=== PATIENT | female | born 1960 | race Caucasian/White ===

== ENCOUNTER 2016-06-27 13:28 | Inpatient (IN) | payer OTHER ==
[~2016-06-27] VITALS: Ht 154.9 cm; Wt 57.4 kg
--- NOTE | 2016-06-27 14:41 | ERA ---
ER Documentation Chief Complaint Date/Time DATE: 06/27/16 TIME: 14:41 Chief Complaint SEND BY PMD DUE LOW HGB, FEELS TIRED HPI The patient is a 55-year-old female, presenting to the ER because of abnormal low hemoglobin from the blood test that she had yesterday at the clinic and feeling tired for the last 3 weeks. He denies syncope, near syncope, neck pain , chest pain, dyspnea, abdominal pain, vomiting, dysuria, diarrhea. He does not smoke Past medical history: Hypertension, diabetes mellitus Past surgical history: None ROS All systems reviewed and are negative except as per history of present illness. Medications Home Meds Reported Medications Metformin Hcl* (Metformin Hcl*) 1,000 Mg Tablet, 1000 MG PO WITH BREAKFAST DINNE , #60 TAB 06/27/16 Simvastatin* (Zocor*) 10 Mg Tablet, 10 MG PO QHS, #30 TAB 06/27/16 Amlodipine Besylate* (Norvasc*) 5 Mg Tablet, 5 MG PO BID, TAB 06/27/16 Metoprolol Succinate* (Toprol XL*) 25 Mg Tab.sr.24h, 25 MG PO DAILY, #30 TAB 06/27/16 Hydrochlorothiazide* (Hydrochlorothiazide*) 25 Mg Tab, 25 MG PO DAILY, #30 TAB 06/27/16 Hydrochlorothiazide* (Hydrochlorothiazide*) 12.5 Mg Tablet, 12.5 MG PO DAILY, # 30 TAB 06/27/16 Allergies Allergies: Coded Allergies: No Known Allergy (Unverified , 06/27/16) PMhx/Soc History of Surgery: No Anesthesia Reaction: No Hx Neurological Disorder: No Hx Respiratory Disorders: No Hx Cardiac Disorders: Yes (HTN) Hx Psychiatric Problems: No Hx Miscellaneous Medical Probl: No Hx Alcohol Use: No Hx Substance Use: No Hx Tobacco Use: No Smoking Status: Unknown if ever smoked Physical Exam Vitals Vital Signs Date Time Temp Pulse Resp B/P Pulse Ox O2 Delivery O2 Flow Rate FiO2 06/27/16 17:00 97.8 86 20 181/80 100 Nasal Cannula 2.0 06/27/16 15:17 Nasal Cannula 2 06/27/16 13:45 98.1 94 18 222/88 99 Physical Exam Const: No acute distress.Pale Head: Atraumatic. Eyes: Normal Conjunctiva. ENT: Normal External Ears, Nose and Mouth. Neck: Full range of motion. No meningismus. Resp: Clear to auscultation bilaterally. Cardio: Regular rate and rhythm, no murmurs. Abd: Soft, non distended, normal bowel sounds, non tender. Skin: No petechiae or rashes. Back: No midline or flank tenderness. Ext: No cyanosis, or edema. Neur: Awake and alert. No focal deficit Psych: Normal Mood and Affect. Result Diagram: 06/27/16 1500 06/27/16 1500 Results 24 hrs Laboratory Tests Test 06/27/16 15:00 White Blood Count 4.610^3/ul Red Blood Count 1.8910^6/ul Hemoglobin 6.1g/dl Hematocrit 18.6% Mean Corpuscular Volume 98.4fl Mean Corpuscular Hemoglobin 32.3pg Mean Corpuscular Hemoglobin Concent 32.8g/dl Red Cell Distribution Width 15.1% Platelet Count 02870^3/UL Mean Platelet Volume 9.5fl Neutrophils % 62.0% Lymphocytes % 24.0% Monocytes % 10.0% Eosinophils % 4.0% Neutrophils # 2.910^3/ul Lymphocytes # 1.110^3/ul Monocytes # 0.510^3/ul Eosinophils # 0.210^3/ul Prothrombin Time 12.6Sec Prothrombin Time Ratio 1.0 INR International Normalized Ratio 0.94 Activated Partial Thromboplast Time 36.4Sec Sodium Level 134mmol/L Potassium Level 4.7mmol/L Chloride Level 109mmol/L Carbon Dioxide Level 16mmol/L Anion Gap 14 Blood Urea Nitrogen 51mg/dl Creatinine 5.04mg/dl Glucose Level 333mg/dl Calcium Level 7.7mg/dl Total Bilirubin 0.0mg/dl Direct Bilirubin 0.00mg/dl Indirect Bilirubin 0.0mg/dl Aspartate Amino Transf (AST/SGOT) 26IU/L Alanine Aminotransferase (ALT/SGPT) 38IU/L Alkaline Phosphatase 159IU/L Total Protein 6.3g/dl Albumin 2.9g/dl Globulin 3.40g/dl Albumin/Globulin Ratio 0.85 Current Medications Medications (Trade) Dose Ordered Sig/Jeannine Route PRN Reason Start Time Stop Time Status Last Admin Dose Admin Labetalol HCl (Labetalol) 20 mg ONCE ONCE IV 06/27/16 18:00 06/27/16 18:01 DC 4/4/17 17:55 Miscellaneous Information 10 mg QHS PO 06/27/16 21:00 UNV Metoprolol Tartrate (Lopressor) 25 mg BID PO 06/27/16 21:00 UNV Amlodipine Besylate (Norvasc) 10 mg DAILY PO 06/27/16 18:00 UNV Hydralazine HCl 10 mg 10 mg Q6H PRN IV sbp>160mmhg 06/27/16 18:00 UNV Sodium Chloride (NS) 1,000 ml @ 80 mls/hr [id number] IV 06/27/16 18:00 UNV Insulin Aspart (Novolog Insulin Pen) NOVOLOG *MODERATE* ALGORITHM WITH MEALS BEDTIME SC 06/27/16 18:00 UNV Miscellaneous Information (* Miscellaneous Pharmacy Order) HYPOGLYCEMIA PROTOCOL w... ONCE ONCE XX 06/27/16 18:00 06/27/16 18:01 UNV Miscellaneous Information (* Miscellaneous Pharmacy Order) Discontinue all previ... ONCE ONCE XX 06/27/16 18:00 06/27/16 18:01 UNV Insulin Glargine (Lantus) 15 unit DAILY@20 SC 06/27/16 20:00 UNV Docusate Sodium (Colace) 100 mg BID PO 06/27/16 21:00 UNV Famotidine (Pepcid) 20 mg BID PO 06/27/16 21:00 UNV Ondansetron HCl (Zofran Inj) 4 mg Q6H PRN IV NAUSEA AND/OR VOMITING 06/27/16 18:30 UNV Acetaminophen (Tylenol Tab) 325 mg Q6H PRN PO PAIN AND OR ELEVATED TEMP 06/27/16 18:30 UNV Procedures/MDM EKG: Read by emergency physician Rate/Rhythm: Normal Sinus Rhythm 93 beats/min QRS, ST, T-waves: No ST elevation, no T inversion Impression: Normal EKG [place] [id number] Radiology Main Line: [phone] DIAGNOSTIC IMAGING REPORT Patient: ROSA ESCOBAR : 10/10/1971 Age: 44 Sex: M MR #: [id number] DOS: 06/27/16 1416 Ordering MD: FRANK PRYOR MD Location: E/R Room/Bed: PROCEDURE: CT Brain without. CLINICAL INDICATION: Syncope TECHNIQUE: A CT of the brain was performed on a multi-slice CT scanner utilizing axial sections from the skull base through the vertex without contrast. Coronal and sagittal reconstructed images were provided. One or more of the following does reduction techniques were used: Automated exposure control; adjustment of the mA and/or kV according to patient size; use of the aorta of reconstruction technique. Images were reviewed on a high-resolution PACS workstation. The exam CTDI = 44.33 mGy. The exam DLP = 720.23 mGy-cm. COMPARISON: None available FINDINGS: The ventricles and sulci are symmetric and normal in size and morphology. There is no evidence of intracranial hemorrhage, mass effect, edema or midline shift. No abnormal intra-axial or extra-axial fluid collections are seen. The fernando/white matter differentiation is well preserved. The osseous structures and visualized sinuses are unremarkable. The mastoid air cells are clear. The surrounding soft tissue scalp and bony calvarium are intact and normal. IMPRESSION: 1. Unremarkable CT brain. RPTAT: KK .Bud Sorto MD, MD Date Time Electronically viewed and signed by .Bud Sorto MD, MD on 2016 15:33 .B/ CC: FRANK PRYOR MD MEDICAL MAKING DECISION: The patient is a 55-year-old female, presenting with acute anemia, acute kidney injury, acute hyperglycemia, acute accelerated hypertension. She was treated with 2 units of packed red blood cell for acute anemia and labetalol 20 mg IV for acute accelerated hypertension with good response. The differential diagnoses considered include but are not limited to gastritis, peptic ulcer disease, esophageal varices, Judy-Mederos tear, carcinoma, polyp, hemorrhoid, fissure, diverticulosis, angiodysplasia. Departure Diagnosis: Primary Impression: Anemia Additional Impressions: Acute kidney injury Acute hyperglycemia Accelerated hypertension Condition: Stable Comments I discussed the findings with the patient. I discussed the patient with the on- call hospitalist Dr. Peraza who was made aware of the lab, the treatment, the patient condition. The patient is admitted to telemetry at 4:45 PM FRANK PRYOR MD Jun 27, 2016 14:41
[2016-06-27] MEDS ORDERED: HYD25 PO (15:00)
[2016-06-27] MEDS ORDERED: HYDR12.58 PO (15:00)
[2016-06-27] MEDS ORDERED: AMLO5TAB4 PO (15:01)
[2016-06-27] MEDS ORDERED: METO25TA7 PO (15:01)
[2016-06-27] MEDS ORDERED: SIMV10TA PO (15:02)
[2016-06-27] MEDS ORDERED: METF1000 PO (15:03)
[2016-06-27 15:20] LABS: ADD SCAN DIFF NO
[2016-06-27 15:22] LABS: ABNORMAL IP MESSAGE 1; HEMATOCRIT 18.6 % (37.0-47.0); MEAN CORPUSCULAR HEMOGLOBIN 32.3 pg (29.0-33.0); MEAN CORPUSCULAR HGB CONC 32.8 g/dl (32.0-37.0); MEAN CORPUSCULAR VOLUME 98.4 fl (82.0-101.0); MEAN PLATELET VOLUME 9.5 fl (7.4-10.4); PLATELET COUNT 326 10^3/UL (140-415); RED BLOOD COUNT 1.89 10^6/ul (4.20-5.40); RED CELL DISTRIBUTION WIDTH 15.1 % (11.5-14.5); WHITE BLOOD COUNT 4.6 10^3/ul (4.8-10.8)
[2016-06-27 15:29] LABS: HEMOGLOBIN 6.1 g/dl (12.0-16.0)
[2016-06-27 15:32] LABS: ALBUMIN 2.9 g/dl (3.3-4.9); POTASSIUM 4.7 mmol/L (3.5-5.1)
[2016-06-27 15:34] LABS: INR 0.94; PROTIME 12.6 Sec (12.2-14.2)
[2016-06-27 15:35] LABS: ALBUMIN/GLOBULIN RATIO 0.85; CALCIUM 7.7 mg/dl (8.4-10.2); CREATININE 5.04 mg/dl (0.44-1.00); TOTAL PROTEIN 6.3 g/dl (6.1-8.1)
[2016-06-27 15:36] LABS: PARTIAL THROMBOPLASTIN TIME 36.4 Sec (25.0-35.0)
[2016-06-27 16:35] LABS: EOSINOPHILS # 0.2 10^3/ul (0.0-0.5); LYMPHOCYTES # 1.1 10^3/ul (0.8-2.9); MONOCYTE # 0.5 10^3/ul (0.3-0.9); NEUTROPHIL # 2.9 10^3/ul (1.6-7.5)
[2016-06-27] MEDS ORDERED: LABETALOL HCL 20MG INJ IV ONE (18:00)
[2016-06-27] MEDS ORDERED: ACETAMINOPHEN 325 MG TAB PO PRN (18:30)
[2016-06-27] MEDS ORDERED: ONDANSETRON 4 MG INJ IV PRN (18:30)
--- NOTE | 2016-06-27 19:05 | RADRPT ---
PROCEDURE: US pelvis complete and transvaginal CLINICAL INDICATION: Severe anemia. Pelvic pain. TECHNIQUE: Hernandez scale and color Doppler imaging of the pelvis was performed. Endovaginal scanning was performed for more detailed evaluation of the endometrium. The images were reviewed on a PACS workstation. COMPARISON: None. FINDINGS: The uterus measures 6.4 x 3.1 x 4.4 centimeters. The right ovary measures 2.8 x 1.4 x 2.3 centimete rs and the left ovary was not seen. The endometrial stripe measures 4 millimeters in thickness and i s unremarkable in appearance. No fibroids are seen. Arterial flow of the right ovary was documented. No definite ovarian cyst or mass. A small amount of free fluid was present in the cul-de-sac. Calc ified periuterine vasculature. IMPRESSION: No definite acute abnormality. Nonvisualization of the left ovary. RPTAT: HLBE Physician Damaso Date Time Electronically viewed and signed by Valencia Hernandez Physician on 06/27/2016 19:05 IVÁN/
[2016-06-27] MEDS ORDERED: DEXTROSE 50% 50 ML SYRINGE IV PRN ×2 (19:30)
[2016-06-27] MEDS ORDERED: GLUCOSE GEL 15 GRAM TUBE BUCCAL PRN (19:30)
[2016-06-27] MEDS ORDERED: GLUCOSE GEL 15 GRAM TUBE PO PRN ×2 (19:30)
[2016-06-27] MEDS ORDERED: GLUCAGON 1 MG INJ IM PRN (19:30)
[2016-06-27] MEDS ORDERED: INSULIN GLARGINE [LANtus] 3 ML PEN SC SCH (20:00)
[2016-06-27] MEDS: INSULIN ASPART [NOVOLOG] 3 ML PEN SC SCH ×2 (20:15→21:00)
[2016-06-27] MEDS: AMLODIPINE 10 MG TAB PO SCH (20:15)
[2016-06-27] MEDS: METOPROLOL 25 MG TAB PO SCH (20:23)
[2016-06-27] MEDS: ATORVASTATIN 10 MG TAB PO SCH (20:23)
[2016-06-27] MEDS: DOCUSATE SODIUM 100 MG CAP PO SCH (20:23)
[2016-06-27 21:00] VITALS: TEMP 98.5
[2016-06-27] MEDS ORDERED: FAMOTIDINE 20 MG TAB PO SCH (21:00)
--- NOTE | 2016-06-27 21:16 | RADRPT ---
PROCEDURE: CT Abdomen and Pelvis without contrast CLINICAL INDICATION: Severe anemia TECHNIQUE: Transaxial images were obtained through the abdomen and pelvis on a multi-slice scanner without the intravenous contrast administration. No oral contrast had previously been given. Sagit marta and coronal re-formations were subsequently reconstructed. One or more of the following dose reduction techniques were used: - Automated exposure control. - Adjustment of the mA and/or kV according to patient size. - Use of iterative reconstruction technique. Radiation dose: CTDIvol = 11.65 mGy; DLP = 640.91 mGy-cm. COMPARISON: No prior studies are available for comparison. FINDINGS: Lung bases: There are moderate bilateral water density gravitating pleural fluid accumulations great er on the right than the left. Subsegmental atelectasis is seen at each lower lobe. The heart is m ildly enlarged and there are is a small pericardial effusion. Liver: The liver is upper normal in size with no focal lesion identified. Gallbladder: The wall is not thickened. No radiopaque stones are identified. Bile ducts: The intra and extrahepatic bile ducts are normal in caliber. Pancreas: Appears normal with no mass or inflammation evident. Spleen: Normal in size with no focal lesion. Adrenals: Normal with no mass identified. Kidneys, ureters and bladder: The kidneys are normal in size and there is no mass, pathological calc ification, or hydronephrosis evident. There is bilateral perinephric stranding. The ureters are norm al in caliber and no ureteroliths are identified. The bladder wall is mildly diffusely thickened. Reproductive organs: The uterus is midline. Peripheral vascular calcification is seen in the uterus . A ring-like calcification is seen within the right cul-de-sac measuring 1.8 x 1.3 x 0.7 cm cm in c ross diameter. Otherwise, no adnexal mass is identified. Stomach and bowel: The stomach is quite distended with food debris. The small bowel gas pattern ref lects an ileus. Substantial stool is seen within the right colon and the right colonic wall appears mildly thickened raising the possibility of colitis. There is no evidence of bowel obstruction. Appendix: A normal vermiform appendix is evident. Peritoneum: There is a trace of free intraperitoneal fluid seen in the cul-de-sac. No free air is i dentified. Aorta: There is atherosclerotic vascular calcification but no abdominal aortic aneurysm is evident. IVC: Unremarkable. Lymph nodes: No pathologically enlarged nodes are identified. Osseous structures: The osseous elements appear intact. Soft tissues: There is considerable stranding within the subcutaneous and deep fat suspicious for a nasarca. IMPRESSION: 1. There is diffusely increased stranding to the subcutaneous and deep fat as well as in the retrope ritoneum compatible with anasarca. 2. Moderate gravitating water density pleural fluid accumulations are evident with subsegmental ate lectasis involving the posterior lower lobes. 3. Mild cardiomegaly with a small pericardial effusion. 4. See the stomach is moderately distended with food debris and abundant stool seen in the right co sharifa and the bowel wall is mildly thickened raising the possibility of colitis.. The small bowel gas pattern reflects an ileus without evidence of bowel obstruction. A normal vermiform appendix is mumtaz dent. 5. No evidence of urinary outflow obstruction or ureterolithiasis. The bladder wall is mildly diff usely thickened raising the possibility of cystitis. 6. There is a trace of free intraperitoneal fluid seen in the cul-de-sac with no free air evident. 7. A 1.8 x 1.3 x 0.7 cm ring calcification is seen in the right cul-de-sac. This could represent a dermoid or less likely a lymph node calcification. 8. Atherosclerotic vascular calcification. Physician Dariana Date Time Electronically viewed and signed by Physician Dariana on 06/27/2016 21:16 /
[2016-06-27 21:19] LABS: IRON 27 ug/dl (35-150)
--- NOTE | 2016-06-27 21:24 | HP ---
DATE OF ADMISSION: 06/27/2016 PRESENTING COMPLAINT: The patient was sent to the emergency room by her primary care physician rossana blair of abnormal blood work. HISTORY OF PRESENTING COMPLAINT: This 55-year-old female was sent to the ER today by her PCP maria e lopez she had gone to the clinic complaining of lethargy and tiredness for the last 3 weeks. She denies syncope. She denies black stools or blood in her stool. Her hemoglobin was found to be low at 6.1 . She denies abdominal pain or vaginal bleeding as well. She denies ever being told that she has h ad anemia in the past. She does have a history of diabetes mellitus. Also in the emergency room to day, she was found to be in renal failure, and the patient reports that she has never been told she had renal insufficiency in the past. REVIEW OF SYSTEMS: A 12-point review of system was done. Pertinent findings are as noted in the HP I. Other than severe lethargy, there is no other significant symptom other than mild lower extremit y swelling. PAST MEDICAL HISTORY: Positive for: 1. Diabetes. 2. Hypertension. 3. Dyslipidemia. SURGICAL HISTORY: The patient denies. ALLERGIES: NO KNOWN DRUG ALLERGIES. SOCIAL HISTORY: Denies alcohol, tobacco or illicit drug use. FAMILY HISTORY: Noncontributory. No history of genitourinary cancers as far as patient knows. HOME MEDICATIONS: These were reviewed and reconciled. Please review the nursing notes for details. PHYSICAL EXAMINATION: VITAL SIGNS: Upon initial arrival to the ER, temperature 98.1, pulse 94, respirations 18, blood pre ssure 222/88, saturations 99% on room air, and at time of my review, temperature 97.8, pulse 86, res pirations 20, blood pressure 181/80, saturations 100% via nasal cannula at 2 L a minute. GENERAL: Anxious female but alert and oriented. No distress. HEENT: Head normocephalic. Pupils equal and reactive. Conjunctival pallor noted without scleral i cterus. Posterior pharynx clear of exudate. NECK: Supple without adenopathy or JVD. CHEST: Clear to auscultation. CARDIOVASCULAR: S1 and S2. No murmurs. ABDOMEN: Soft, nontender, nondistended. Normoactive bowel sounds. EXTREMITIES: There is no lower extremity edema. SKIN: There is no skin rash, petechiae, ecchymosis. NEUROLOGIC: She had no focal deficits. PSYCHIATRIC: She was calm, cooperative with exam. LABORATORY VALUES: Following abnormalities were noted. A sodium of 134, slightly low. Carbon diox noel was also somewhat low at 16. BUN 51, creatinine elevated at 5.04. Serum glucose 333, calcium 7 .7. LFTs are unremarkable save for an alkaline phosphatase of 159. Albumin was also slightly low a t 2.9. Hemoglobin, as mentioned earlier, was 6.1. WBC was also low at 4.6. Platelet count was nor mal. She had normochromia and normocytosis. Her coagulation profile was unremarkable save for a mi ld elevation in her APTT to 36.4. IMAGING: At this point, there are no imaging studies to report. ASSESSMENT: A 55-year-old female who had presented to her primary care physician with severe tiredn ess and was found to have anemia, now managed for the followin. Severe symptomatic anemia, hemoglobin of 6.1. 2. New-onset acute renal failure with creatinine of 5.04. 3. Poorly controlled diabetes mellitus. 4. Hypertensive urgency. 5. Dyslipidemia. 6. Source of anemia unclear. 7. Mild hypocalcemia. PLAN: Admit her initially for blood transfusions. So far, 2 units have been ordered by the emergen cy room physician. Likely patient might need a third unit but will wait until we see the hemoglobin values post transfusion. Also, I will supplement her with gentle hydration, and I will get an ultr asound of the kidneys to ensure that there is no obstruction causing the renal failure. An ultrasou nd can also help us evaluate her pelvic organs to evaluate for possible endometrial thickening even though patient denies history of vaginal bleeding, and also we will get a stool occult blood test to ensure that bleeding is not from GI tract. For now, resume her home hypoglycemic regimen and titra te in-house but will avoid use of metformin and DAVID inhibitors right now in setting of renal failure . Will also use her home antihypertensives while avoiding nephrotoxic drugs and renally dose now he r medications. Further interventions will depend on her clinical course. For prophylaxis, she will be on Pepcid with SCDs. For further information and clarification, please review patient's chart. Dictated By: NEVILLE JOSEPH MD, BA/ELÍAS Conf#: [id number] [facility]#: [id number]
[2016-06-27 21:28] LABS: TOTAL IRON BINDING CAPACITY 311 ug/dl (241-421)
[2016-06-27 22:00] VITALS: PULSE 79
[2016-06-27 22:05] VITALS: Ht 154.9 cm; Wt 57.4 kg
[2016-06-27 22:13] VITALS: BP 165/77; PULSE 74; RESP 18
[2016-06-27] MEDS: SOD CHLORIDE 0.9% 1,000 ML IV SCH (22:56)
[2016-06-28] VITALS (11 sets, daily range): BP systolic 113–160; BP diastolic 58–75; PULSE 70–78; RESP 16–20
[2016-06-28 07:03] LABS: ALBUMIN 2.6 g/dl (3.3-4.9)
[2016-06-28 07:04] LABS: POTASSIUM 4.6 mmol/L (3.5-5.1)
[2016-06-28 07:06] LABS: BILIRUBIN,INDIRECT 0.1 mg/dl (0-1.1); BILIRUBIN,TOTAL 0.1 mg/dl (0.2-1.3); CREATININE 4.71 mg/dl (0.44-1.00); TOTAL PROTEIN 5.5 g/dl (6.1-8.1)
[2016-06-28 07:07] LABS: CALCIUM 7.5 mg/dl (8.4-10.2); MAGNESIUM 2.4 mg/dl (1.7-2.5)
[2016-06-28 07:08] LABS: CHOL/HDL RATIO 2.1 RATIO
[2016-06-28 07:30] LABS: THYROID STIMULATING HORMONE 4.79 MIU/L (0.465-4.680)
[2016-06-28] MEDS: INSULIN ASPART [NOVOLOG] 3 ML PEN SC SCH ×4 (08:00→20:30)
[2016-06-28] MEDS: SOD CHLORIDE 0.9% 1,000 ML IV SCH ×2 (08:59→19:00)
[2016-06-28] MEDS: DOCUSATE SODIUM 100 MG CAP PO SCH ×2 (08:59→20:36)
[2016-06-28] MEDS: FAMOTIDINE 20 MG TAB PO SCH (09:00)
[2016-06-28] MEDS: METOPROLOL 25 MG TAB PO SCH ×2 (09:00→20:36)
[2016-06-28] MEDS: AMLODIPINE 10 MG TAB PO SCH (09:00)
--- NOTE | 2016-06-28 14:07 | PN ---
Date/Time of Note Date/Time of Note DATE: 06/28/16 TIME: 13:51 Assessment/Plan VTE Prophylaxis VTE Prophylaxis Intervention: SCD's Lines/Catheters IV Catheter Type (from Nrs): Saline Lock Urinary Cath still in place: No Assessment/Plan Assessment/Plan 1. Severe symptomatic anemia, s/p 2 units PRBCs, follow up with H/H 2. Renal failure, likely acute on chronic, 3. Diabetes mellitus. 4. Hypertension, change norvasc to procardia 5. Dyslipidemia. on statin 6. Hypoalbuminemia Subjective 24 Hr Interval Summary Free Text/Dictation no abdominal pain, stronger Exam/Review of Systems Vital Signs Vitals Vital Signs Date Time Temp Pulse Resp B/P Pulse Ox O2 Delivery O2 Flow Rate FiO2 06/28/16 12:27 71 06/28/16 08:58 97.8 18 160/75 96 06/27/16 22:13 Room Air 06/27/16 21:00 2.0 Intake and Output 06/27/16 06/27/16 06/28/16 14:59 22:59 06:59 Intake Total 950 ml Balance 950 ml Exam Constitutional: alert, oriented, well developed Psych: nl mood/affect, no complaints Head: atraumatic, normocephalic Eyes: EOMI, PERRL, nl conjunctiva, nl lids, nl sclera ENMT: nl external ears & nose, nl lips & teeth, nl nasal mucosa & septum Neck: non-tender, supple Respiratory: clear to auscultation, normal air movement, No congested cough, No crackles/rales, No diminished breath sounds, No intercostal retraction, No labored breathing, No other, No respirations, No tactile fremitus, No wheezing Cardiovascular: nl pulses, regular rate and rhythm, No S3, No S4, No bruits, No diastolic murmur, No edema, No gallop, No irregular rhythm, No jugular venous distention (JVD), No murmurs/extra sounds, No other, No rub, No systolic murmur Gastrointestinal: nl liver, spleen, non-tender, soft, No ascites, No bowel sounds, No distended, No firm, No hepatomegaly, No mass , No other, No rebound or guarding, No splenomegaly, No surgical scars, No tender Musculoskeletal: nl extremities to inspection Extremities: normal pulses, No calf tenderness, No clubbing, No cyanosis, No edema, No other, No palpable cord, No pitting pedal edema, No tenderness Neurological: MOLDER FLOOR II-XII intact, nl mental status, nl speech, nl strength Skin: nl turgor Lymph: nl lymph nodes Results Result Diagram: 06/27/16 1500 06/28/16 0550 Results 24 hrs Laboratory Tests Test 06/27/16 15:00 06/27/16 19:34 06/27/16 22:41 06/28/16 05:50 White Blood Count 4.6 L Red Blood Count 1.89 L Hemoglobin 6.1 *L Hematocrit 18.6 L Mean Corpuscular Volume 98.4 Mean Corpuscular Hemoglobin 32.3 Mean Corpuscular Hemoglobin Concent 32.8 Red Cell Distribution Width 15.1 H Platelet Count 326 Mean Platelet Volume 9.5 Neutrophils % 62.0 Lymphocytes % 24.0 Monocytes % 10.0 Eosinophils % 4.0 Neutrophils # 2.9 Lymphocytes # 1.1 Monocytes # 0.5 Eosinophils # 0.2 Prothrombin Time 12.6 Prothrombin Time Ratio 1.0 INR International Normalized Ratio 0.94 Activated Partial Thromboplast Time 36.4 H Sodium Level 134 L 134 L Potassium Level 4.7 4.6 Chloride Level 109 116 H Carbon Dioxide Level 16 L 14 L Anion Gap 14 9 # Blood Urea Nitrogen 51 H 50 H Creatinine 5.04 H 4.71 H Glucose Level 333 H 72 # Calcium Level 7.7 L 7.5 L Iron Level 27 L Total Iron Binding Capacity 311 Percent Iron Saturation 9 L Total Bilirubin 0.0 L 0.1 L Direct Bilirubin 0.00 0.00 Indirect Bilirubin 0.0 0.1 Aspartate Amino Transf (AST/SGOT) 26 28 Alanine Aminotransferase (ALT/SGPT) 38 36 Alkaline Phosphatase 159 H 122 H Total Protein 6.3 5.5 L Albumin 2.9 L 2.6 L Globulin 3.40 H Albumin/Globulin Ratio 0.85 Bedside Glucose 230 H 106 Hemoglobin A1c 5.8 Magnesium Level 2.4 Triglycerides Level 71 Cholesterol Level 186 LDL Cholesterol, Calculated 87 HDL Cholesterol 85 Cholesterol/HDL Ratio 2.1 Thyroid Stimulating Hormone (TSH) 4.790 H Test 06/28/16 08:09 06/28/16 12:25 Bedside Glucose 76 104 Medications Medications Current Medications Atorvastatin Calcium (Lipitor) 10 mg DAILY@21 PO Last administered on 06/27/16 20:23; Admin Dose 10 MG; Start 06/27/16 at 21:00 Metoprolol Tartrate (Lopressor) 25 mg BID PO Last administered on 06/28/16 09: 00; Admin Dose 25 MG; Start 06/27/16 at 21:00 Amlodipine Besylate (Norvasc) 10 mg DAILY PO Last administered on 06/28/16 09: 00; Admin Dose 10 MG; Start 06/27/16 at 18:00 Hydralazine HCl 10 mg 10 mg Q6H PRN IV sbp>160mmhg; Start 06/27/16 at 18:00 Sodium Chloride (NS) 1,000 ml @ 80 mls/hr [id number] IV Last administered on 08:59; Admin Dose 80 MLS/HR; Start 06/27/16 at 18:00 Insulin Glargine (Lantus) 15 unit DAILY@20 SC Last administered on 06/27/16 20: 22; Admin Dose 15 UNIT; Start 06/27/16 at 20:00 Docusate Sodium (Colace) 100 mg BID PO Last administered on 06/28/16 08:59; Admin Dose 100 MG; Start 06/27/16 at 21:00 Ondansetron HCl (Zofran Inj) 4 mg Q6H PRN IV NAUSEA AND/OR VOMITING; Start 06/27 at 18:30 Acetaminophen (Tylenol Tab) 325 mg Q6H PRN PO PAIN AND OR ELEVATED TEMP; Start 06/27/16 at 18:30 Miscellaneous Information 1 ea NOTE XX ; Start 06/27/16 at 19:30 Glucose (Glutose) 15 gm Q15M PRN PO DECREASED GLUCOSE; Start 06/27/16 at 19:30 Glucose (Glutose) 22.5 gm Q15M PRN PO DECREASED GLUCOSE; Start 06/27/16 at 19:30 Dextrose (D50w Syringe) 25 ml Q15M PRN IV DECREASED GLUCOSE; Start 06/27/16 at 19:30 Dextrose (D50w Syringe) 50 ml Q15M PRN IV DECREASED GLUCOSE; Start 06/27/16 at 19:30 Glucagon (Glucagen) 1 mg Q15M PRN IM DECREASED GLUCOSE; Start 06/27/16 at 19:30 Glucose (Glutose) 15 gm Q15M PRN BUCCAL DECREASED GLUCOSE; Start 06/27/16 at 19: 30 Famotidine (Pepcid) 20 mg DAILY PO Last administered on 06/28/16 09:00; Admin Dose 20 MG; Start 06/28/16 at 09:00 VANNESSA ROA MD Jun 28, 2016 14:01
[2016-06-28] MEDS: NIFEdipine (XL) 60 MG TAB PO SCH (14:47)
[2016-06-28 15:56] LABS: HEMATOCRIT 23.1 % (37.0-47.0); HEMOGLOBIN 7.6 g/dl (12.0-16.0)
[2016-06-28] MEDS ORDERED: BISACODYL (EC) 5 MG TAB PO ONE (17:00)
[2016-06-28] MEDS: INSULIN GLARGINE [LANtus] 3 ML PEN SC SCH (20:33)
[2016-06-28] MEDS: ATORVASTATIN 10 MG TAB PO SCH (20:36)
[2016-06-29] VITALS (10 sets, daily range): BP systolic 112–153; BP diastolic 59–72; PULSE 67–82; RESP 16–20
[2016-06-29 07:26] LABS: ADD SCAN DIFF NO
[2016-06-29 07:34] LABS: BASOPHILS % 0.6 % (0.0-2.0); EOSINOPHILS # 0.4 10^3/ul (0.0-0.5); EOSINOPHILS % 7.5 % (0.0-7.0); HEMATOCRIT 25.6 % (37.0-47.0); HEMOGLOBIN 8.5 g/dl (12.0-16.0); LYMPHOCYTES % 19.9 % (15.0-51.0); MEAN CORPUSCULAR HEMOGLOBIN 30.9 pg (29.0-33.0); MEAN CORPUSCULAR HGB CONC 33.2 g/dl (32.0-37.0); MEAN CORPUSCULAR VOLUME 93.1 fl (82.0-101.0); MEAN PLATELET VOLUME 9.9 fl (7.4-10.4); MONOCYTE # 0.4 10^3/ul (0.3-0.9); MONOCYTES % 7.5 % (0.0-11.0); NEUTROPHIL # 3.3 10^3/ul (1.6-7.5); NEUTROPHILS % 64.3 % (39.0-77.0); PLATELET COUNT 270 10^3/UL (140-415); RED BLOOD COUNT 2.75 10^6/ul (4.20-5.40); RED CELL DISTRIBUTION WIDTH 15.9 % (11.5-14.5); WHITE BLOOD COUNT 5.2 10^3/ul (4.8-10.8)
[2016-06-29] MEDS: SOD CHLORIDE 0.9% 1,000 ML IV SCH (07:35)
[2016-06-29 07:47] LABS: ALBUMIN 2.8 g/dl (3.3-4.9); ALBUMIN/GLOBULIN RATIO 0.96; CALCIUM 7.6 mg/dl (8.4-10.2); CREATININE 4.63 mg/dl (0.44-1.00); POTASSIUM 5.4 mmol/L (3.5-5.1); TOTAL PROTEIN 5.7 g/dl (6.1-8.1)
[2016-06-29] MEDS: INSULIN ASPART [NOVOLOG] 3 ML PEN SC SCH ×4 (08:00→20:44)
[2016-06-29] MEDS: FAMOTIDINE 20 MG TAB PO SCH (08:43)
[2016-06-29] MEDS: DOCUSATE SODIUM 100 MG CAP PO SCH ×2 (08:43→20:35)
[2016-06-29] MEDS: METOPROLOL 25 MG TAB PO SCH ×2 (08:47→20:34)
[2016-06-29] MEDS: NIFEdipine (XL) 60 MG TAB PO SCH (08:47)
--- NOTE | 2016-06-29 14:38 | PN ---
Date/Time of Note Date/Time of Note DATE: 06/29/16 TIME: 14:33 Assessment/Plan VTE Prophylaxis VTE Prophylaxis Intervention: heparin Lines/Catheters IV Catheter Type (from Nrs): Peripheral IV Urinary Cath still in place: No Assessment/Plan Assessment/Plan 1. Severe symptomatic anemia, s/p 2 units PRBCs, follow up with H/H 2. Renal failure, likely acute on chronic, 3. Diabetes mellitus. 4. Hypertension, change norvasc to procardia 5. Dyslipidemia. on statin 6. Hypoalbuminemia 7. Hyperkalemia, Kayexalate, repeat K Subjective 24 Hr Interval Summary Free Text/Dictation feels ok. stronger Exam/Review of Systems Vital Signs Vitals Vital Signs Date Time Temp Pulse Resp B/P Pulse Ox O2 Delivery O2 Flow Rate FiO2 06/29/16 12:00 98.2 69 16 112/59 97 Room Air 06/27/16 21:00 2.0 Intake and Output 06/28/16 06/28/16 06/29/16 15:00 23:00 07:00 Intake Total 500 ml Balance 500 ml Exam Constitutional: alert, oriented, well developed Psych: nl mood/affect, no complaints Head: atraumatic, normocephalic Eyes: EOMI, PERRL, nl conjunctiva, nl lids ENMT: nl external ears & nose, nl lips & teeth, nl nasal mucosa & septum Neck: non-tender, supple Respiratory: clear to auscultation, normal air movement, No congested cough, No crackles/rales, No diminished breath sounds, No intercostal retraction, No labored breathing, No other, No respirations, No tactile fremitus, No wheezing Cardiovascular: nl pulses, regular rate and rhythm, No S3, No S4, No bruits, No diastolic murmur, No edema, No gallop, No irregular rhythm, No jugular venous distention (JVD), No murmurs/extra sounds, No other, No rub, No systolic murmur Gastrointestinal: nl liver, spleen, non-tender, soft, No ascites, No bowel sounds, No distended, No firm, No hepatomegaly, No mass , No other, No rebound or guarding, No splenomegaly, No surgical scars, No tender Musculoskeletal: nl extremities to inspection Extremities: normal pulses, No calf tenderness, No clubbing, No cyanosis, No edema, No other, No palpable cord, No pitting pedal edema, No tenderness Neurological: BONE TENDER II-XII intact, nl mental status, nl speech, nl strength Skin: nl turgor Lymph: nl lymph nodes Results Result Diagram: 06/29/16 0700 06/29/16 0700 Results 24 hrs Laboratory Tests Test 06/28/16 15:40 06/28/16 17:19 06/28/16 20:29 06/29/16 01:53 Hemoglobin 7.6 #L Hematocrit 23.1 #L Bedside Glucose 91 128 62 L Test 06/29/16 02:18 06/29/16 02:34 06/29/16 02:58 06/29/16 07:00 Bedside Glucose 92 78 90 White Blood Count 5.2 Red Blood Count 2.75 #L Hemoglobin 8.5 L Hematocrit 25.6 L Mean Corpuscular Volume 93.1 Mean Corpuscular Hemoglobin 30.9 Mean Corpuscular Hemoglobin Concent 33.2 Red Cell Distribution Width 15.9 H Platelet Count 270 Mean Platelet Volume 9.9 Neutrophils % 64.3 Lymphocytes % 19.9 Monocytes % 7.5 Eosinophils % 7.5 H Basophils % 0.6 Nucleated Red Blood Cells % 0.0 Neutrophils # 3.3 Lymphocytes # 1.0 Monocytes # 0.4 Eosinophils # 0.4 Basophils # 0.0 Nucleated Red Blood Cells # 0.0 Sodium Level 130 L Potassium Level 5.4 H Chloride Level 113 H Carbon Dioxide Level 13 L Anion Gap 9 Blood Urea Nitrogen 49 H Creatinine 4.63 H Glucose Level 79 Calcium Level 7.6 L Total Bilirubin 0.0 L Direct Bilirubin 0.00 Indirect Bilirubin 0.0 Aspartate Amino Transf (AST/SGOT) 61 H Alanine Aminotransferase (ALT/SGPT) 50 Alkaline Phosphatase 134 H Total Protein 5.7 L Albumin 2.8 L Globulin 2.90 Albumin/Globulin Ratio 0.96 Test 06/29/16 07:46 06/29/16 11:37 Bedside Glucose 75 98 Medications Medications Current Medications Atorvastatin Calcium (Lipitor) 10 mg DAILY@21 PO Last administered on 06/28/16 20:36; Admin Dose 10 MG; Start 06/27/16 at 21:00 Metoprolol Tartrate (Lopressor) 25 mg BID PO Last administered on 06/29/16 08: 47; Admin Dose 25 MG; Start 06/27/16 at 21:00 Hydralazine HCl 10 mg 10 mg Q6H PRN IV sbp>160mmhg; Start 06/27/16 at 18:00 Sodium Chloride (NS) 1,000 ml @ 80 mls/hr [id number] IV Last administered on 07:35; Admin Dose 80 MLS/HR; Start 06/27/16 at 18:00 Docusate Sodium (Colace) 100 mg BID PO Last administered on 06/29/16 08:43; Admin Dose 100 MG; Start 06/27/16 at 21:00 Ondansetron HCl (Zofran Inj) 4 mg Q6H PRN IV NAUSEA AND/OR VOMITING; Start 06/27 at 18:30 Acetaminophen (Tylenol Tab) 325 mg Q6H PRN PO PAIN AND OR ELEVATED TEMP; Start 06/27/16 at 18:30 Miscellaneous Information 1 ea NOTE XX ; Start 06/27/16 at 19:30 Glucose (Glutose) 15 gm Q15M PRN PO DECREASED GLUCOSE; Start 06/27/16 at 19:30 Glucose (Glutose) 22.5 gm Q15M PRN PO DECREASED GLUCOSE; Start 06/27/16 at 19:30 Dextrose (D50w Syringe) 25 ml Q15M PRN IV DECREASED GLUCOSE; Start 06/27/16 at 19:30 Dextrose (D50w Syringe) 50 ml Q15M PRN IV DECREASED GLUCOSE; Start 06/27/16 at 19:30 Glucagon (Glucagen) 1 mg Q15M PRN IM DECREASED GLUCOSE; Start 06/27/16 at 19:30 Glucose (Glutose) 15 gm Q15M PRN BUCCAL DECREASED GLUCOSE; Start 06/27/16 at 19: 30 Famotidine (Pepcid) 20 mg DAILY PO Last administered on 06/29/16 08:43; Admin Dose 20 MG; Start 06/28/16 at 09:00 Insulin Glargine (Lantus) 12 unit DAILY@20 SC Last administered on 06/28/16 20: 33; Admin Dose 12 UNIT; Start 06/28/16 at 20:00 Nifedipine (Procardia Xl) 60 mg DAILY PO Last administered on 06/29/16 08:47; Admin Dose 60 MG; Start 06/28/16 at 14:30 VANNESSA ROA MD Jun 29, 2016 14:38
[2016-06-29] MEDS ORDERED: NA POLYST SULFON 15 GM/60 ML BTL PO ONE (15:00)
[2016-06-29] MEDS ORDERED: HEPARIN 5,000 UNIT/0.5 ML SYG SC ONE (15:00)
[2016-06-29 15:48] LABS: ADD SCAN DIFF NO
[2016-06-29 15:51] LABS: BASOPHIL # 0.1 10^3/ul (0.0-0.1); EOSINOPHILS # 0.4 10^3/ul (0.0-0.5); EOSINOPHILS % 7.4 % (0.0-7.0); HEMATOCRIT 27.1 % (37.0-47.0); HEMOGLOBIN 8.9 g/dl (12.0-16.0); LYMPHOCYTES # 0.9 10^3/ul (0.8-2.9); LYMPHOCYTES % 17.5 % (15.0-51.0); MEAN CORPUSCULAR HEMOGLOBIN 30.7 pg (29.0-33.0); MEAN CORPUSCULAR HGB CONC 32.8 g/dl (32.0-37.0); MEAN CORPUSCULAR VOLUME 93.4 fl (82.0-101.0); MEAN PLATELET VOLUME 9.9 fl (7.4-10.4); MONOCYTE # 0.4 10^3/ul (0.3-0.9); MONOCYTES % 7.2 % (0.0-11.0); NEUTROPHIL # 3.2 10^3/ul (1.6-7.5); NEUTROPHILS % 66.5 % (39.0-77.0); PLATELET COUNT 308 10^3/UL (140-415); RED CELL DISTRIBUTION WIDTH 15.9 % (11.5-14.5); WHITE BLOOD COUNT 4.9 10^3/ul (4.8-10.8)
[2016-06-29] MEDS: ATORVASTATIN 10 MG TAB PO SCH (20:34)
[2016-06-29] MEDS: INSULIN GLARGINE [LANtus] 3 ML PEN SC SCH (20:36)
[2016-06-29] MEDS ORDERED: SOD CHLORIDE 0.45% 1,000 ML IV SCH (23:00)
[2016-06-29] MEDS: hydrALAzine 20 MG INJ IV PRN (23:22)
[2016-06-30] VITALS (10 sets, daily range): BP systolic 112–186; BP diastolic 56–88; PULSE 69–87; RESP 16–20
[2016-06-30] MEDS: hydrALAzine 20 MG INJ IV PRN (06:14)
[2016-06-30] MEDS: INSULIN ASPART [NOVOLOG] 3 ML PEN SC SCH ×2 (08:00→12:51)
[2016-06-30] MEDS: FAMOTIDINE 20 MG TAB PO SCH (08:57)
[2016-06-30] MEDS: DOCUSATE SODIUM 100 MG CAP PO SCH (08:57)
[2016-06-30] MEDS: METOPROLOL 25 MG TAB PO SCH (08:57)
[2016-06-30] MEDS: NIFEdipine (XL) 60 MG TAB PO SCH (08:57)
[2016-06-30 08:58] LABS: CALCIUM 7.4 mg/dl (8.4-10.2); CREATININE 4.7 mg/dl (0.44-1.00); POTASSIUM 4.9 mmol/L (3.5-5.1)
[2016-06-30] MEDS ORDERED: NIFE60TA7 PO (15:19)
[2016-06-30] MEDS ORDERED: NOVO3I SC (15:19)
[2016-06-30] MEDS ORDERED: LANT3I SC (15:19)
--- NOTE | 2016-06-30 15:35 | DS ---
Date/Time of Note Date/Time of Note DATE: 06/30/16 TIME: 15:20 Discharge Summary Admission/Discharge Info Admit Date/Time Jun 27, 2016 at 16:45 Discharge Date/Time Final Diagnosis 1. Severe symptomatic anemia, s/p 2 units PRBCs, follow up PCP 2. CKD stage 4, Diabetic nephropathy, nephrology as soon as possible 3. Diabetes mellitus, with renal manifestation, insulins 4. Hypertension, follow up with PCP for antihypertensives adjustment 5. Dyslipidemia. on statin 6. Hypoalbuminemia, likely renal loss from diabetic nephropathy, follow up with nephrology Patient Condition: Stable Procedures [place] [address] Radiology Main Line: [phone] DIAGNOSTIC IMAGING REPORT Patient: CARA CUNHA : 1960 Age: 55 Sex: F MR #: [id number] DOS: 06/27/16 1756 Ordering MD: NEVILLE JOSEPH Location: E/R Room/Bed: PROCEDURE: US pelvis complete and transvaginal CLINICAL INDICATION: Severe anemia. Pelvic pain. TECHNIQUE: Hernandez scale and color Doppler imaging of the pelvis was performed. Endovaginal scanning was performed for more detailed evaluation of the endometrium. The images were reviewed on a PACS workstation. COMPARISON: None. FINDINGS: The uterus measures 6.4 x 3.1 x 4.4 centimeters. The right ovary measures 2.8 x 1.4 x 2.3 centimeters and the left ovary was not seen. The endometrial stripe measures 4 millimeters in thickness and is unremarkable in appearance. No fibroids are seen. Arterial flow of the right ovary was documented. No definite ovarian cyst or mass. A small amount of free fluid was present in the cul-de-sac. Calcified periuterine vasculature. IMPRESSION: No definite acute abnormality. Nonvisualization of the left ovary. RPTAT: HLBE Valencia Hernandez Physician Date Time Electronically viewed and signed by Valencia Hernandez Physician on 06/27/2016 19 :05 LE/ CC: NEVILLE JOSEPH [place] [address] Radiology Main Line: [phone] DIAGNOSTIC IMAGING REPORT Patient: CARA CUNHA : 1960 Age: 55 Sex: F MR #: [id number] DOS: 06/27/161916 Ordering MD: NEVILLE JOSEPH Location: E/R Room/Bed: PROCEDURE: CT Abdomen and Pelvis without contrast CLINICAL INDICATION: Severe anemia TECHNIQUE: Transaxial images were obtained through the abdomen and pelvis on a multi-slice scanner without the intravenous contrast administration. No oral contrast had previously been given. Sagittal and coronal re-formations were subsequently reconstructed. One or more of the following dose reduction techniques were used: - Automated exposure control. - Adjustment of the mA and/or kV according to patient size. - Use of iterative reconstruction technique. Radiation dose: CTDIvol = 11.65 mGy; DLP = 640.91 mGy-cm. COMPARISON: No prior studies are available for comparison. FINDINGS: Lung bases: There are moderate bilateral water density gravitating pleural fluid accumulations greater on the right than the left. Subsegmental atelectasis is seen at each lower lobe. The heart is mildly enlarged and there are is a small pericardial effusion. Liver: The liver is upper normal in size with no focal lesion identified. Gallbladder: The wall is not thickened. No radiopaque stones are identified. Bile ducts: The intra and extrahepatic bile ducts are normal in caliber. Pancreas: Appears normal with no mass or inflammation evident. Spleen: Normal in size with no focal lesion. Adrenals: Normal with no mass identified. Kidneys, ureters and bladder: The kidneys are normal in size and there is no mass, pathological calcification, or hydronephrosis evident. There is bilateral perinephric stranding. The ureters are normal in caliber and no ureteroliths are identified. The bladder wall is mildly diffusely thickened. Reproductive organs: The uterus is midline. Peripheral vascular calcification is seen in the uterus. A ring-like calcification is seen within the right cul-de -sac measuring 1.8 x 1.3 x 0.7 cm cm in cross diameter. Otherwise, no adnexal mass is identified. Stomach and bowel: The stomach is quite distended with food debris. The small bowel gas pattern reflects an ileus. Substantial stool is seen within the right colon and the right colonic wall appears mildly thickened raising the possibility of colitis. There is no evidence of bowel obstruction. Appendix: A normal vermiform appendix is evident. Peritoneum: There is a trace of free intraperitoneal fluid seen in the cul-de- sac. No free air is identified. Aorta: There is atherosclerotic vascular calcification but no abdominal aortic aneurysm is evident. IVC: Unremarkable. Lymph nodes: No pathologically enlarged nodes are identified. Osseous structures: The osseous elements appear intact. Soft tissues: There is considerable stranding within the subcutaneous and deep fat suspicious for anasarca. IMPRESSION: 1. There is diffusely increased stranding to the subcutaneous and deep fat as well as in the retroperitoneum compatible with anasarca. 2. Moderate gravitating water density pleural fluid accumulations are evident with subsegmental atelectasis involving the posterior lower lobes. 3. Mild cardiomegaly with a small pericardial effusion. 4. See the stomach is moderately distended with food debris and abundant stool seen in the right colon and the bowel wall is mildly thickened raising the possibility of colitis.. The small bowel gas pattern reflects an ileus without evidence of bowel obstruction. A normal vermiform appendix is evident. 5. No evidence of urinary outflow obstruction or ureterolithiasis. The bladder wall is mildly diffusely thickened raising the possibility of cystitis. 6. There is a trace of free intraperitoneal fluid seen in the cul-de-sac with no free air evident. 7. A 1.8 x 1.3 x 0.7 cm ring calcification is seen in the right cul-de-sac. This could represent a dermoid or less likely a lymph node calcification. 8. Atherosclerotic vascular calcification. Physician Dariana Date Time Electronically viewed and signed by Physician Dariana on 06/27/2016 21:16 RH/ CC: NEVILLE JOSEPH Hospital Course This 55-year-old female was sent to the ER today by her PCP because she had gone to the clinic complaining of lethargy and tiredness for the last 3 weeks. She denies syncope. She denies black stools or blood in her stool. Her hemoglobin was found to be low at 6.1. She denies abdominal pain or vaginal bleeding as well. She denies ever being told that she has had anemia in the past. She does have a history of diabetes mellitus. Also in the emergency room today, she was found to be in renal failure, and the patient reports that she has never been told she had renal insufficiency in the past. H/H were 6.1/18.6 with MCV 98.4, they are improved to 8.9/27.1 after 3 units of PRBC transfusion. The anemia is considered CKD related. BUN/CR were 51/5.04 on admission, they are 51/4.7 on 06/30/2016. It is considered CKD from diabetic nephropathy, even CT scan the kidneys are unremarkable. Patient will follow up with nephrology outpatient for further work up and treatment. Albumin level is 2.6 that gives general edema. The hypoalbuminemia is probably from renal loss. Follow up with nephrology for 24 hours urine protein. Metformin is stopped due to renal failure. Blood glucose is well controlled with lantus 12 units daily. I will discharge her with lantus 10 units daily. follow up with PCP for dosage adjustment. Home Meds Active Scripts Insulin Glargine* (Lantus*) 100 Unit/Ml Soln, 12 UNIT SC DAILY@20 for 30 Days Prov:VANNESSA RAO MD 06/30/16 Insulin Aspart* (Novolog Insulin Pen*) 100 Unit/Ml Soln, 0 UNIT SC WITH MEALS BEDTIME for 30 Days Prov:VANNESSA ROA MD 06/30/16 Nifedipine (Afeditab CR) 60 Mg Tablet.sa, 60 MG PO DAILY for 60 Days Prov:VANNESSA ROA MD 06/30/16 Reported Medications Simvastatin* (Zocor*) 10 Mg Tablet, 10 MG PO QHS, #30 TAB 06/27/16 Metoprolol Succinate* (Toprol XL*) 25 Mg Tab.sr.24h, 25 MG PO DAILY, #30 TAB 06/27/16 Discontinued Reported Medications Metformin Hcl* (Metformin Hcl*) 1,000 Mg Tablet, 1000 MG PO WITH BREAKFAST DINNE , #60 TAB 06/27/16 Amlodipine Besylate* (Norvasc*) 5 Mg Tablet, 5 MG PO BID, TAB 06/27/16 Hydrochlorothiazide* (Hydrochlorothiazide*) 25 Mg Tab, 25 MG PO DAILY, #30 TAB 06/27/16 Hydrochlorothiazide* (Hydrochlorothiazide*) 12.5 Mg Tablet, 12.5 MG PO DAILY, # 30 TAB 06/27/16 Follow-up Plan PCP today nephrology YANET Pending Labs Laboratory Tests Test 06/29/16 17:18 06/29/16 20:19 06/30/16 07:10 06/30/16 08:11 Bedside Glucose 162mg/dL (70-220) 150mg/dL (70-220) 93mg/dL (70-220) Sodium Level 130mmol/L (135-144) Potassium Level 4.9mmol/L (3.5-5.1) Chloride Level 113mmol/L (97-110) Carbon Dioxide Level 13mmol/L (21-31) Anion Gap 9 (8-16) Blood Urea Nitrogen 51mg/dl (7-20) Creatinine 4.70mg/dl (0.44-1.00) Glucose Level 90mg/dl (70-220) Calcium Level 7.4mg/dl (8.4-10.2) Test 06/30/16 12:15 Bedside Glucose 145mg/dL (70-220) VANNESSA ROA MD Jun 30, 2016 15:30
== END 2016-06-30 15:50 | disposition home or self-care (01) | DRG 812 ==
LOC: E/R 13:28 → MS4 16:45
PROVIDERS: ADMIT Family Medicine; ATTEND Family Medicine
PROC: 30233N1 Transfusion of Nonautologous Red Blood Cells into Peripheral Vein, Percutaneous Approach (ICD-10-PCS; principal; 2016-06-27)
DX: D64.9 Anemia, unspecified (principal); N17.9 Acute kidney failure, unspecified; N18.4 Chronic kidney disease, stage 4 (severe); E11.22 Type 2 diabetes mellitus with diabetic chronic kidney disease; E11.65 Type 2 diabetes mellitus with hyperglycemia; I16.0 Hypertensive urgency; E78.5 Hyperlipidemia, unspecified; E87.6 Hypokalemia; E83.51 Hypocalcemia; E88.09 Other disorders of plasma-protein metabolism, not elsewhere classified; I12.9 Hypertensive chronic kidney disease with stage 1 through stage 4 chronic kidney disease, or unspecified chronic kidney disease; Z79.4 Long term (current) use of insulin
CPT/HCPCS: 36415; 36430; 74176; 76830; 76856; 80048; 80053; 80061; 80076; 82962; 83036; 83540; 83735; 84443; 85014; 85018; 85025; 85610; 85730; 86850; 86900; 86901; 86920; 93005; 96372; 96374; J0360; J1644; J1815; J7030; P9016

== ENCOUNTER 2016-07-02 02:08 | Inpatient (IN) | payer OTHER ==
[~2016-07-02] VITALS: Ht 154.9 cm; Wt 75.0 kg
[2016-07-02] VITALS (15 sets, daily range): BP systolic 120–220; BP diastolic 61–112; PULSE 78–90; RESP 17–20; Ht 154.9 cm; Wt 75.0 kg
[~2016-07-02 02:08] MED LIST: LANT3I SC; METO25TA7 PO; NIFE60TA7 PO; NOVO3I SC; SIMV10TA PO
--- NOTE | 2016-07-02 04:12 | ERA ---
ER Documentation Chief Complaint Date/Time DATE: 07/02/16 TIME: 04:09 Chief Complaint shortness of breath x 1 hour. denies pain HPI Patient is a 55-year-old female with diabetes, hypertension, recent admission for symptomatic anemia who presents with 1 day of shortness of breath and feeling like her throat is tight. She denies chest or back pain. She states that her symptoms are worse when she lies down flat. She reports increased leg edema for 1 month. She denies fever or cough. She was discharged yesterday from the hospital after receiving blood transfusion for symptomatic anemia. ROS All systems reviewed and are negative except as per history of present illness. Medications Home Meds Active Scripts Insulin Glargine* (Lantus*) 100 Unit/Ml Soln, 12 UNIT SC DAILY@20 for 30 Days Prov:VANNESSA ROA MD 06/30/16 Insulin Aspart* (Novolog Insulin Pen*) 100 Unit/Ml Soln, 0 UNIT SC WITH MEALS BEDTIME for 30 Days Prov:VANNESSA ROA MD 06/30/16 Nifedipine (Afeditab CR) 60 Mg Tablet.sa, 60 MG PO DAILY for 60 Days Prov:VANNESSA ROA MD 06/30/16 Reported Medications Simvastatin* (Zocor*) 10 Mg Tablet, 10 MG PO QHS, #30 TAB 06/27/16 Metoprolol Succinate* (Toprol XL*) 25 Mg Tab.sr.24h, 25 MG PO DAILY, #30 TAB 06/27/16 Discontinued Reported Medications Metformin Hcl* (Metformin Hcl*) 1,000 Mg Tablet, 1000 MG PO WITH BREAKFAST DINNE , #60 TAB 06/27/16 Amlodipine Besylate* (Norvasc*) 5 Mg Tablet, 5 MG PO BID, TAB 06/27/16 Hydrochlorothiazide* (Hydrochlorothiazide*) 25 Mg Tab, 25 MG PO DAILY, #30 TAB 06/27/16 Hydrochlorothiazide* (Hydrochlorothiazide*) 12.5 Mg Tablet, 12.5 MG PO DAILY, # 30 TAB 06/27/16 Allergies Allergies: Coded Allergies: No Known Allergy (Unverified , 07/02/16) PMhx/Soc Past medical history: Diabetes mellitus, hypertension, stage IV CKD Past surgical history: Denies Social history: Denies tobacco or alcohol History of Surgery: Yes (Tubaligation 1994) Anesthesia Reaction: No Hx Neurological Disorder: No Hx Respiratory Disorders: No Hx Cardiac Disorders: Yes (HTN) Hx Psychiatric Problems: No Hx Miscellaneous Medical Probl: No (chronic anemia, "kidney problems") Hx Alcohol Use: No Hx Substance Use: No Hx Tobacco Use: No Smoking Status: Never smoker FmHx Family History: diabetes Physical Exam Vitals Vital Signs Date Time Temp Pulse Resp B/P Pulse Ox O2 Delivery O2 Flow Rate FiO2 07/02/16 05:30 85 16 181/84 100 Room Air 07/02/16 02:15 97.7 95 20 211/90 99 Physical Exam Const: Alert, no acute distress Head: Atraumatic Eyes: Normal Conjunctiva, no pallor or icterus ENT: Normal External Ears, Nose and Mouth. Mucous membranes moist Neck: Full range of motion. Positive for JVD. No meningismus. Resp: Clear to auscultation bilaterally, no wheezes, no rales Cardio: Regular rate and rhythm, no murmurs Abd: Soft, non tender, non distended. No guarding or rebound Skin: No petechiae or rashes Back: No midline or flank tenderness Ext: No cyanosis, 3+ pitting edema to the mid thigh bilateral. Neur: Awake and alert, cranial nerves II through XII intact bilaterally, who is anxious for extremities appropriately. Psych: Normal Mood and Affect Result Diagram: 07/02/16 0330 07/02/16 0330 Results 24 hrs Laboratory Tests Test 07/02/16 03:30 White Blood Count 7.010^3/ul Red Blood Count 3.0010^6/ul Hemoglobin 9.4g/dl Hematocrit 28.0% Mean Corpuscular Volume 93.3fl Mean Corpuscular Hemoglobin 31.3pg Mean Corpuscular Hemoglobin Concent 33.6g/dl Red Cell Distribution Width 15.8% Platelet Count 73911^3/UL Mean Platelet Volume 10.1fl Neutrophils % 69.9% Lymphocytes % 16.4% Monocytes % 7.6% Eosinophils % 5.2% Basophils % 0.6% Nucleated Red Blood Cells % 0.0/100WBC Neutrophils # 4.910^3/ul Lymphocytes # 1.110^3/ul Monocytes # 0.510^3/ul Eosinophils # 0.410^3/ul Basophils # 0.010^3/ul Nucleated Red Blood Cells # 0.010^3/ul Prothrombin Time 12.5Sec Prothrombin Time Ratio 1.0 INR International Normalized Ratio 0.93 Activated Partial Thromboplast Time 33.9Sec Sodium Level 134mmol/L Potassium Level 5.1mmol/L Chloride Level 108mmol/L Carbon Dioxide Level 14mmol/L Anion Gap 17 Blood Urea Nitrogen 63mg/dl Creatinine 5.16mg/dl Glucose Level 123mg/dl Calcium Level 7.9mg/dl Total Bilirubin 0.2mg/dl Direct Bilirubin 0.00mg/dl Indirect Bilirubin 0.2mg/dl Aspartate Amino Transf (AST/SGOT) 38IU/L Alanine Aminotransferase (ALT/SGPT) 47IU/L Alkaline Phosphatase 156IU/L Troponin I < 0.012ng/ml B-Type Natriuretic Peptide [id number]/ML Total Protein 6.8g/dl Albumin 3.3g/dl Globulin 3.50g/dl Albumin/Globulin Ratio 0.94 Current Medications Medications (Trade) Dose Ordered Sig/Jeannine Route PRN Reason Start Time Stop Time Status Last Admin Dose Admin Nitroglycerin (Nitroglycerin 2% Oint) 1 inch ONCE ONCE TD 07/02/16 04:30 07/02/16 04:31 DC 07/02/16 04:33 Aspirin (Aspirin) 162 mg ONCE ONCE PO 07/02/16 04:30 07/02/16 04:31 DC 07/02/16 04:33 Furosemide (Lasix) 20 mg ONCE ONCE IV 07/02/16 04:30 07/02/16 04:31 DC 07/02/16 04:33 Procedures/MDM EKG read by me: Time 337, rate 91 Rhythm: Normal sinus Wayside: Normal Intervals: Normal ST-T waves: no ischemic changes Ectopy: No Q-waves: No Impression: No evidence of ischemia or arrhythmia MDM: Patient is a 55-year-old female recently admitted with CKD and anemia requiring transfusion. She returns to the ER with dyspnea and orthopnea. Workup reveals congestive heart failure with a BNP of 42,000, and slightly worsened renal function since prior visit. The patient does not have history of CHF, but likely has volume overload from recent transfusion in the setting of CKD which is worsening. There is no evidence of coronary ischemia. The patient does have significant hypertension. She was treated with Nitropaste and Lasix, and blood pressure and symptoms improved somewhat. She states that her symptoms are much better when she is sitting upright. She will be admitted for further renal and cardiovascular workup, and may need to start hemodialysis. Departure Diagnosis: Primary Impression: Acute exacerbation of CHF (congestive heart failure) Qualified Code: I50.9 - Acute on chronic congestive heart failure, unspecified congestive heart failure type Additional Impressions: Chronic kidney disease Qualified Code: N18.4 - Chronic kidney disease, stage 4 (severe) Hypertension Qualified Code: I10 - Essential hypertension Condition: Stable HUNTER FLEMING MD Jul 02, 2016 04:12
[2016-07-02] MEDS ORDERED: FUROSEMIDE 20 MG INJ IV ONE ×2 (04:30→08:30)
[2016-07-02] MEDS ORDERED: ASPIRIN 81 MG TAB PO ONE (04:30)
[2016-07-02] MEDS ORDERED: NITROGLYCERIN 2% 1 GM OINT PKT TD ONE (04:30)
[2016-07-02 04:37] LABS: ADD SCAN DIFF NO
[2016-07-02 04:41] LABS: BASOPHILS % 0.6 % (0.0-2.0); EOSINOPHILS # 0.4 10^3/ul (0.0-0.5); EOSINOPHILS % 5.2 % (0.0-7.0); HEMOGLOBIN 9.4 g/dl (12.0-16.0); LYMPHOCYTES # 1.1 10^3/ul (0.8-2.9); LYMPHOCYTES % 16.4 % (15.0-51.0); MEAN CORPUSCULAR HEMOGLOBIN 31.3 pg (29.0-33.0); MEAN CORPUSCULAR HGB CONC 33.6 g/dl (32.0-37.0); MEAN CORPUSCULAR VOLUME 93.3 fl (82.0-101.0); MEAN PLATELET VOLUME 10.1 fl (7.4-10.4); MONOCYTE # 0.5 10^3/ul (0.3-0.9); MONOCYTES % 7.6 % (0.0-11.0); NEUTROPHIL # 4.9 10^3/ul (1.6-7.5); NEUTROPHILS % 69.9 % (39.0-77.0); PLATELET COUNT 332 10^3/UL (140-415); RED CELL DISTRIBUTION WIDTH 15.8 % (11.5-14.5)
[2016-07-02 04:48] LABS: ALBUMIN 3.3 g/dl (3.3-4.9)
[2016-07-02 04:49] LABS: CHLORIDE 108 mmol/L (97-110); POTASSIUM 5.1 mmol/L (3.5-5.1); SODIUM 134 mmol/L (135-144)
[2016-07-02 04:51] LABS: ALBUMIN/GLOBULIN RATIO 0.94; ALKALINE PHOSPHATASE 156 IU/L (42-121); ANION GAP 17 (8-16); ASPARTATE AMINO TRANSFERASE 38 IU/L (15-46); BILIRUBIN,INDIRECT 0.2 mg/dl (0-1.1); BILIRUBIN,TOTAL 0.2 mg/dl (0.2-1.3); BLOOD UREA NITROGEN 63 mg/dl (7-20); CARBON DIOXIDE 14 mmol/L (21-31); CREATININE 5.16 mg/dl (0.44-1.00); INR 0.93; PROTIME 12.5 Sec (12.2-14.2); TOTAL PROTEIN 6.8 g/dl (6.1-8.1)
[2016-07-02 04:52] LABS: ALANINE AMINOTRANSFERASE 47 IU/L (13-69); CALCIUM 7.9 mg/dl (8.4-10.2); GLUCOSE 123 mg/dl (70-220); PARTIAL THROMBOPLASTIN TIME 33.9 Sec (25.0-35.0)
[2016-07-02 05:07] LABS: TROPONIN-I < 0.012 ng/ml (0.00-0.12)
[2016-07-02 05:18] LABS: B-TYPE NATRIURETIC PEPTIDE 41800 PG/ML (0-125)
--- NOTE | 2016-07-02 05:58 | RADRPT ---
PROCEDURE: Chest. CLINICAL INDICATION: Shortness of breath. TECHNIQUE: Single frontal view of the chest was obtained. COMPARISON: 08/08/2013. FINDINGS: The cardiac silhouette is enlarged. The aortic arch is calcified. There is mild pulmonary venous c ongestion. There are bilateral small pleural effusions with underlying atelectasis. There is no pn eumothorax. IMPRESSION: Mild cardiomegaly and pulmonary venous congestion. Bilateral small pleural effusions. Aortic atherosclerosis. .Davis Sutherland MD, Date Time Electronically viewed and signed by .Davis Sutherland MD, on 07/02/2016 05:58 .T/
--- NOTE | 2016-07-02 06:37 | HP ---
Date/Time of Note Date/Time of Note DATE: 07/02/16 TIME: 06:36 Assessment/Plan VTE Prophylaxis VTE Prophylaxis Intervention: contraindicated (Potential Bleeding, Swollen Legs ) Lines/Catheters IV Catheter Type (from Nrsg): Peripheral IV Assessment/Plan Assessment/Plan 1) Shortness of breath with small bilateral pleural effusions, elevated BNP and some lower extremity edema. No heart murmur. Acute exacerbation of CHF ( congestive heart failure) No cardiac history. Probable CHF - Admit to telemetry - Diuresis - Oxygen - Breathing Treatments - CBC in AM 2) Renal Insufficiency - unknown whether acute or chronic as patient's Creatinine was 1.13 in Jul, 2013 and in June 2016 it has been 4.70 to 5.05, with no labs available in between those dates. - BMP in AM 3) Essential hypertension - Resume Home Meds. - Monitor HPI/ROS Admit Date/Time Admit Date/Time 07/02/16 0633 Hx of Present Illness cough, Patient is a 55-year-old female with diabetes, hypertension who presents to the ER with shortness of breath for 1 day. She was recently admitted for symptomatic anemia , discharged yesterday, and received blood transfusions. She denies fever, chills, nausea, vomiting, cough, chest or back pain, but her throat feels tight She has no numbness or tingling around her mouth and her tongue does not feel enlarged.Her legs have been swollen for a month, getting worse, and she can't lay flat in bed to sleep because her symptoms worsen. No history of heart failure, asthma or bronchitis. ER Course per ER Physician: Patient was treated with Nitropaste and Lasix, and blood pressure and symptoms improved somewhat. She states that her symptoms are much better when she is sitting upright. She will be admitted for further renal and cardiovascular workup, and may need to start hemodialysis. ROS General: Admits: Denies: Fever, Chills, Poor Appetite, Generalized Body Aches Eyes: Admits: Denies: Blurry Vision, Double Vision HENT: Admits: Denies: Ear Pain/Pressure, Runny/Stuffy Nose, Sore Throat Cardiovascular: Admits: Leg Swelling Denies: Chest Pain, Palpitations Pulmonary: Admits: Shortness of Breath Denies: Cough, Wheeze Gastrointestinal: Admits: Denies: Abdominal Pain, Nausea, Vomiting, Diarrhea, Blood in Stool, Black-Colored Stool Urogenital: Admits: Denies: Burning with Urination, Urinary Frequency, Blood in Urine Musculoskeletal: Admits: Denies: Joint Pain, Joint Swelling, Muscle Pain Neurological: Admits: Denies: Headache, Dizziness, Numbness, Tingling, Shooting Pains Integumentary: Admits: Denies: Rash, Itch PMH/Family/Social Past Medical History Diabetes mellitus, hypertension, stage IV CKD, chronic anemia Past Surgical History 1995 Family History Significant Family History: diabetes Social History Smoking Status: Never smoker Exam/Review of Systems Vital Signs Vitals Vital Signs Date Time Temp Pulse Resp B/P Pulse Ox O2 Delivery O2 Flow Rate FiO2 07/02/16 05:30 85 16 181/84 100 Room Air 07/02/16 02:15 97.7 Exam Exam General: Alert and oriented, in mild respiratory distress, non-toxic Eyes: Sclera White HENT: Normocephalic/Atraumatic, External Ears/Nose Normal, Moist Mucus Membranes Neck: Supple, Trachea Midline Cardiovascular: Normal Rate, Regular Rhythm, Normal S1 and S2, No Murmur, No Extra Sounds. Radial pulse +2/4. Bilateral LE edema. Lungs: Decreased airflow throughout, worse in the bases. Mildly increased respiratory effort. Gastrointestinal: Normoactive Bowel Sounds, Soft, Non-Tender/Non-Distended, No Hepatosplenomegaly Appreciated, No Pulsatile Masses Urogenital: Deferred Musculoskeletal: Normal Muscle Bulk and Tone Neurological: CN II - XII Grossly Intact, Non-Focal, Speech Normal Integumentary: Normal Moisture and Temperature, Good Turgor, No Jaundice, No Rash Lymphatic: No Cervical Lymphadenopathy Psychiatric: Appropriate Mood and Affect, Good Eye Contact Labs Result Diagram: 07/02/16 03307/02/16 0330 Medications Medications Home Meds Active Scripts Insulin Glargine* (Lantus*) 100 Unit/Ml Soln, 12 UNIT SC DAILY@20 for 30 Days Prov:VANNESSA ROA MD 06/30/16 Insulin Aspart* (Novolog Insulin Pen*) 100 Unit/Ml Soln, 0 UNIT SC WITH MEALS BEDTIME for 30 Days Prov:VANNESSA ROA MD 06/30/16 Nifedipine (Afeditab CR) 60 Mg Tablet.sa, 60 MG PO DAILY for 60 Days Prov:VANNESSA ROA MD 06/30/16 Reported Medications Simvastatin* (Zocor*) 10 Mg Tablet, 10 MG PO QHS, #30 TAB 06/27/16 Metoprolol Succinate* (Toprol XL*) 25 Mg Tab.sr.24h, 25 MG PO DAILY, #30 TAB 06/27/16 Discontinued Reported Medications Metformin Hcl* (Metformin Hcl*) 1,000 Mg Tablet, 1000 MG PO WITH BREAKFAST DINNE , #60 TAB 06/27/16 Amlodipine Besylate* (Norvasc*) 5 Mg Tablet, 5 MG PO BID, TAB 06/27/16 Hydrochlorothiazide* (Hydrochlorothiazide*) 25 Mg Tab, 25 MG PO DAILY, #30 TAB 06/27/16 Hydrochlorothiazide* (Hydrochlorothiazide*) 12.5 Mg Tablet, 12.5 MG PO DAILY, # 30 TAB Procedures Laboratory Tests Test 07/02/16 03:30 White Blood Count 7.010^3/ul Red Blood Count 3.0010^6/ul Hemoglobin 9.4g/dl Hematocrit 28.0% Mean Corpuscular Volume 93.3fl Mean Corpuscular Hemoglobin 31.3pg Mean Corpuscular Hemoglobin Concent 33.6g/dl Red Cell Distribution Width 15.8% Platelet Count 37397^3/UL Mean Platelet Volume 10.1fl Neutrophils % 69.9% Lymphocytes % 16.4% Monocytes % 7.6% Eosinophils % 5.2% Basophils % 0.6% Nucleated Red Blood Cells % 0.0/100WBC Neutrophils # 4.910^3/ul Lymphocytes # 1.110^3/ul Monocytes # 0.510^3/ul Eosinophils # 0.410^3/ul Basophils # 0.010^3/ul Nucleated Red Blood Cells # 0.010^3/ul Prothrombin Time 12.5Sec Prothrombin Time Ratio 1.0 INR International Normalized Ratio 0.93 Activated Partial Thromboplast Time 33.9Sec Sodium Level 134mmol/L Potassium Level 5.1mmol/L Chloride Level 108mmol/L Carbon Dioxide Level 14mmol/L Anion Gap 17 Blood Urea Nitrogen 63mg/dl Creatinine 5.16mg/dl Glucose Level 123mg/dl Calcium Level 7.9mg/dl Total Bilirubin 0.2mg/dl Direct Bilirubin 0.00mg/dl Indirect Bilirubin 0.2mg/dl Aspartate Amino Transf (AST/SGOT) 38IU/L Alanine Aminotransferase (ALT/SGPT) 47IU/L Alkaline Phosphatase 156IU/L Troponin I < 0.012ng/ml B-Type Natriuretic Peptide [id number]/ML Total Protein 6.8g/dl Albumin 3.3g/dl Globulin 3.50g/dl Albumin/Globulin Ratio 0.94 EKG: NSR at 91 BPM. No acute changes. PROCEDURE: Chest. CLINICAL INDICATION: Shortness of breath. TECHNIQUE: Single frontal view of the chest was obtained. COMPARISON: 08/08/2013. FINDINGS: The cardiac silhouette is enlarged. The aortic arch is calcified. There is mild pulmonary venous congestion. There are bilateral small pleural effusions with underlying atelectasis. There is no pneumothorax. IMPRESSION: Mild cardiomegaly and pulmonary venous congestion. Bilateral small pleural effusions. Aortic atherosclerosis. SHAQUILLE MALIK DO Jul 02, 2016 06:37 SHAQUILLE MALIK DO Jul 02, 2016 06:37 SHAQUILLE MALIK DO Jul 02, 2016 06:37
[2016-07-02] MEDS ORDERED: ACETAMINOPHEN 325 MG TAB PO PRN ×2 (07:00→21:00)
[2016-07-02] MEDS ORDERED: ONDANSETRON 4 MG INJ IV PRN ×2 (07:00→08:30)
[2016-07-02 07:38] LABS: AADO2 Arterial 32.9 mmHg (7.0-24.0); Allen Test ACCEPTAB; Arterial Base Excess -13.4 mmol/L (-3.0-3); Arterial COHb 0.2 % (0.0-3.0); Arterial Fraction of Oxyhgb 94.8 % (93.0-99.0); Arterial HCO3 12.1 mmol/L (22.0-26.0); Arterial MetHb 0.4 % (0.0-1.5); Arterial Total Hemglobin 9.7 g/dl (12.0-18.0); MODE ROOM AIR
[2016-07-02] MEDS ORDERED: NA BICARBONATE 8.4% 50 ML SYG IV ONE (08:30)
[2016-07-02] MEDS ORDERED: METOPROLOL (XL) 25 MG TAB PO SCH (09:00)
--- NOTE | 2016-07-02 09:06 | RADRPT ---
PROCEDURE: Renal US. CLINICAL INDICATION: Renal failure TECHNIQUE: Multiple sonographic images of the kidneys and bladder were obtained. The images were reviewed on a PACS workstation. COMPARISON: CT abdomen pelvis 06/27/2016 FINDINGS: The kidneys are well visualized. The right kidney measures 10.3 cm. The left kidney measures 10 cm. There are no focal areas of abnormal echogenicity. There is no evidence for obstructive uropathy. The bladder is unremarkable. There are no filling defects or stones in the bladder. IMPRESSION: 1. Unremarkable renal ultrasound. RPTAT: [facility] .Phillip Gayle MD, Date Time Electronically viewed and signed by .Phillip Gayle MD, MD on 07/02/2016 09:05 .M/
[2016-07-02] MEDS ORDERED: GLUCOSE GEL 15 GRAM TUBE PO PRN ×2 (09:30)
[2016-07-02] MEDS ORDERED: DEXTROSE 50% 50 ML SYRINGE IV PRN ×2 (09:30)
[2016-07-02] MEDS ORDERED: GLUCOSE GEL 15 GRAM TUBE BUCCAL PRN (09:30)
[2016-07-02] MEDS ORDERED: GLUCAGON 1 MG INJ IM PRN (09:30)
[2016-07-02] MEDS: NIFEdipine (XL) 60 MG TAB PO SCH (09:57)
[2016-07-02] MEDS: FUROSEMIDE 40 MG INJ IV SCH (09:58)
[2016-07-02] MEDS: DOCUSATE SODIUM 100 MG CAP PO SCH ×2 (09:58→20:52)
[2016-07-02] MEDS: FAMOTIDINE 20 MG TAB PO SCH (09:58)
[2016-07-02 10:43] LABS: POTASSIUM 5.4 mmol/L (3.5-5.1)
[2016-07-02 10:46] LABS: CREATININE 5.02 mg/dl (0.44-1.00)
[2016-07-02] MEDS ORDERED: NA POLYST SULFON 15 GM/60 ML BTL PO ONE (11:30)
[2016-07-02] MEDS: CALCIUM ACETATE 667 MG CAP NGT SCH ×2 (12:00→18:19)
[2016-07-02] MEDS: INSULIN ASPART [NOVOLOG] 3 ML PEN SC SCH ×3 (12:21→20:55)
[2016-07-02 12:49] LABS: ADD UMIC YES; URINE BILIRUBIN (Dip) NEGATIVE (NEGATIVE); URINE BLOOD (Dip) 2+ (NEGATIVE); URINE COLOR LT. YELLOW (YELLOW); URINE KETONES (Dip) NEGATIVE (NEGATIVE); URINE LEUKOCYTE ESTERASE (Dip) NEGATIVE (NEGATIVE); URINE NITRITE (Dip) NEGATIVE (NEGATIVE); URINE TOTAL PROTEIN (Dip) 2+ (NEGATIVE); URINE UROBILINOGEN (Dip) 0.2 E.U./dL (0.1-1.0)
[2016-07-02 13:11] LABS: SQUAMOUS EPITHELIAL CELL,UR FEW
[2016-07-02] MEDS: SOD FERRIC GLUC COMPLX 125 MG in SOD CHLORIDE 0.9% 100 ML IVPB SCH (13:53)
--- NOTE | 2016-07-02 16:03 | RADRPT ---
Echocardiogram Report Patient Name: CARA CUNHA Gender: Female Date: 1960 Study Date: 02-Jul-2016 Vice President Of Instruction: [facility] Location: 5547 Ref. Physician: SHAQUILLE MALIK Quality: Adequate Procedures: Transthoracic echocardiogram with complete 2D, M-Mode, and doppler examination. Indications: Congestive Heart Failure, PLEURAL EFFUSION. 2D/M Mode Doppler Measurement Value Normal Ranges Measurement Value Normal Ranges LVIDd 2D 5.2 3.5 - 5.6 cm AV Peak Rogelio 1.7 m/sec LVIDs 2D 3.9 2.1 - 4.1 cm AV Peak PG 11.0 mmHg LVPWd 2D 0.9 0.6 - 1.1 cm LVOT Peak Rogelio 1.3 m/sec IVSd 2D 0.9 0.6 - 1.1 cm LVOT Peak PG 6.5 mmHg AoR Diam 2D 2.5 2.0 - 3.7 cm MV E Peak Rogelio 1.2 m/sec EDV 2D 131.4 cm3 MV A Peak Rogelio 1.0 m/sec ESV 2D 61.4 cm3 MV E/A 1.3 MV Decel Time 185 msec MV Decel [place] 7 MV E/A 1.3 TR Peak Rogelio 2.9 m/sec TR Peak PG 32.8 mmHg Findings Left Ventricle: Normal left ventricular systolic function. Normal left ventricular cavity size. Ejection fraction is visually estimated at 55 %. Abnormal Diastolic Function. Right Ventricle: Not well visualized. Left Atrium: There is mild enlargement of left atrium. Right Atrium: Right atrium at upper limits of normal. Mitral Valve: Mild mitral leaflet calcification. Mild mitral valve regurgitation. Aortic Valve: Trileaflet aortic valve. Trace aortic valve regurgitation. Tricuspid Valve: Tricuspid valve not well visualized. Estimated peak PA systolic pressure 42 mmHg. There is trace to mild tricuspid regurgitation. Pulmonic Valve: There is trace pulmonic regurgitation. Pericardium: Normal pericardium with no significant pericardial effusion. Aorta: Normal aortic root. IVC: Dilated IVC with respiratory collapse consistent with elevated right atrial pressure. Conclusions 1.Normal left ventricular systolic function. Normal left ventricular cavity size. Ejection fraction is visually estimated at 55 %. Abnormal Diastolic Function. 2.There is mild enlargement of left atrium. 3.Mild mitral leaflet calcification. Mild mitral valve regurgitation. 4.Trileaflet aortic valve. Trace aortic valve regurgitation. 5.Tricuspid valve not well visualized. Estimated peak PA systolic pressure 42 mmHg. There is trace to mild tricuspid regurgitation. 6.There is trace pulmonic regurgitation. Electronically Signed By: Doyle Almeida 02-Jul-2016 16:02: Patient Name: CARA CUNHA Study Date: 02-Jul-2016 [id number]
--- NOTE | 2016-07-02 16:51 | CONS ---
DATE OF ADMISSION: 07/02/2016 DATE OF CONSULTATION: REASON FOR CONSULTATION: Surgical. HISTORY OF PRESENT ILLNESS: This is a 55-year-old female with history of hypertension, diabetes, ad mitted because of renal failure. The patient will be needing long-term hemodialysis access. PAST MEDICAL HISTORY: Significant for hypertension, diabetes, renal failure. PAST SURGICAL HISTORY: None. ALLERGIES: NONE. SOCIAL HISTORY: No smoking, drinking or drug use. MEDICATIONS: List reviewed. PHYSICAL EXAMINATION: VITAL SIGNS: Blood pressure is 126/64, pulse is 80, respirations 18. CARDIOVASCULAR: Normal S1, S2. No murmurs, gallops or rubs. LUNGS: Clear. ABDOMEN: Soft. EXTREMITIES: Warm. LABORATORY VALUES: Significant for a white count of 7, hemoglobin 9.4, platelet count 312. Normal coagulation factors. BUN of 65, creatinine 5. IMPRESSION: Renal failure. RECOMMENDATIONS: We will proceed with placement of a dialysis catheter. Risks, benefits, complicat ions, alternative therapies explained to the patient. All questions answered. Dictated By: SAILAJA LINDSEY/ELÍAS Conf#: [id number] DID#: [id number]
[2016-07-02 16:52] LABS: CK-MB 5.44 ng/ml (0.0-2.4)
[2016-07-02 16:55] LABS: TROPONIN-I 0.014 ng/ml (0.00-0.12)
--- NOTE | 2016-07-02 17:11 | OPR ---
DATE OF OPERATION: PREOPERATIVE DIAGNOSIS: Renal failure. POSTOPERATIVE DIAGNOSIS: Renal failure. OPERATION PERFORMED: Right femoral hemodialysis catheter placement. SURGEON: Sailaja Sears MD ANESTHESIA: Local. CONSENT: Risks, benefits, complications, alternative therapies explained to the patient and the [facility] michael; consent obtained. OPERATIVE TECHNIQUE: The patient was placed in the supine position, prepped and draped in the usual sterile fashion; 1% lidocaine was used throughout the operation for local anesthesia. Access was g ained in the right common femoral vein. Guidewire was advanced through without any difficulty. Sub cutaneous tissues dilated. A 25 cm dialysis catheter was advanced over the guidewire, secured to sk in using silk sutures. Both ports of the catheter were aspirated and injected using heparinized kiara ine solution. Patient tolerated procedure well. Dictated By: SAILAJA LINDSEY/ELÍAS Conf#: [id number] DID#: [id number]
--- NOTE | 2016-07-02 17:25 | CONS ---
DATE OF ADMISSION: 07/02/2016 DATE OF CONSULTATION: 07/02/2016 REASON FOR CONSULTATION: Congestive heart failure. REQUESTING PHYSICIAN: Dr. Malik from the hospitalist service ( ). HISTORY OF PRESENT ILLNESS: Ms. Alcaraz is a very pleasant 55-year-old female with a history of hypertension, dyslipidemia, diabetes mellitus who presented with complaints of worsening shortness of breath over 3 months with generalized weakness and swelling of the legs. Additionally, the patient has had dizziness. Upon arrival in the emergency department, temperature 97.7, blood pressure markedly elevated at 211/90, pulse 95, respiratory rate 20, saturating 99%. The patient's labs revealed white count 7, hemoglobin 9.4, platelet count 322. Sodium 134, potassium 5.1, creatinine 5.16, BUN of 63, AST 38, ALT 47. Troponin negative. BNP of 41,800. INR 0.93. UA negative. ABG revealing a pH of 7.268, a PaO2 of 84, a pCO2 of 27. Patient underwent a chest x-ray revealing mild cardiomegaly and pulmonary venous congestion and bilateral small effusions and a renal ultrasound revealing an unremarkable renal ultrasound. The patient's electrocardiogram revealed normal sinus rhythm, rate 91, normal axis, normal intervals, borderline anterior R-wave progression with nonspecific ST-T abnormalities. The patient subsequently has been admitted to the floor and since admit to the floor, has been initiated on baseline antihypertensives with Toprol, nifedipine and started on Lasix. The patient, given acute severe renal failure, has been initiated on hemodialysis, which she is undergoing at this time. The patient denies chest pain. PAST MEDICAL HISTORY: As above in HPI. MEDICATIONS CURRENTLY IN HOSPITAL: 1. Toprol-XL 50 mg daily. 2. Lipitor. 3. Lantus insulin sliding scale. 4. PhosLo. 5. Lasix 40 mg IV daily. 6. Procardia 60 mg daily. 7. Colace 100 mg b.i.d. 8. Pepcid 20 mg daily. 9. Zofran p.r.n. ALLERGIES: NO KNOWN DRUG ALLERGIES. SOCIAL HISTORY: No tobacco, ETOH or illicit drug use. FAMILY HISTORY: No history of sudden cardiac or early CAD. REVIEW OF SYSTEMS: As above in HPI. CONSTITUTIONAL: No fevers, chills. PULMONARY: Positive shortness of breath. CARDIOVASCULAR: No chest pain. GASTROINTESTINAL: No vomiting. GENITOURINARY: No hematuria. Positive renal failure. PSYCHIATRIC: No documented psych history. NEUROLOGIC: Dizziness. PHYSICAL EXAMINATION: VITAL SIGNS: Temperature 97.7, blood pressure 126/64, pulse 84, respiratory rate 18, saturating 95%. GENERAL: The patient is alert, awake, in no acute distress, complaining of shortness of breath. NECK: JVP approximately 9 cm water. CHEST: Bibasilar crackles. HEART: Regular rate and rhythm. Normal S1, S2, I/ systolic murmur, nondisplaced PMI. ABDOMEN: Positive bowel sounds, soft. EXTREMITIES: No edema, 1+ pulses bilaterally posterior tibial. LABORATORY DATA: As above in HPI, with most recent from today, sodium 134, potassium 5.4, creatinine 5.0, BUN 65, UA is negative. IMAGING STUDIES: As above in HPI. No further imaging studies for my review at this time. ECG: As above in HPI. No further electrocardiograms for my review at this time. IMPRESSION: 1. Question systolic versus diastolic, but acute, likely due to renal failure and volume overload. 2. Hypertension consistent with hypertension urgency/emergency currently downtrending on oral antihypertensives. 3. Shortness of breath likely secondary to #1. 4. Abnormal electrocardiogram, assess for acute coronary syndrome. 5. Dizziness, rule out cardiac arrhythmia. 6. Renal failure. 7. Hyperkalemia. 8. Anemia. 9. Acidosis. RECOMMENDATIONS: 1. At this time, would maintain the patient on telemetry monitoring to follow rhythm and rate control closely. 2. Continue the patient's current Toprol and Procardia with up titration as necessary to improve overall systolic blood pressure control. 3. Continue the patient's statin and adjust it according to a fasting lipid panel as checked. 4. Check a 2D echocardiogram to further assess patient's ejection fraction, wall motion and any major valve abnormalities. 5. Hemodialysis for volume removal and ongoing renal evaluation of the etiology of renal failure. 6. Continue to follow the patient's blood sugars closely with adjustment of insulin therapy as necessary. Thank you for allowing me to take part in the care of this patient. I will continue to follow along very closely with you. Further recommendations will be made as the patient progresses through his inpatient hospital clinical course. Dictated By: GILSON LIRA/ELÍAS Conf#: [id number] DID#: [id number] CC: SHAQUILLE MALIK MD;*EndCC* MTDD
--- NOTE | 2016-07-02 19:49 | CONS ---
DATE OF ADMISSION: 07/02/2016 DATE OF CONSULTATION: HISTORY OF PRESENT ILLNESS: Dear Dr. Peraza, thank you for asking me to participate in the care of this 55-year-old, para 7, 7, female with a history of diabetes, hypertension and chronic kidney disease. The patient had been recently discharged from the hospital when she was in deed found to have chronic kidney disease. She has been since continued on multiple medications includin. Metoprolol 2. Atorvastatin. 3. Lantus insulin. 4. Hydralazine. 5. Lasix. 6. Nifedipine. 7. Pepcid. 8. Some other p.r.n. medications. The patient has been brought to the emergency room with chief complaint of nausea and vomiting, and has been found to have high BUN and creatinine. Chest x-ray shows congestive heart failure, and chemistry also shows hyperkalemia. Nephrology consultation therefore requested. The patient has already been given kayexalate and sodium bicarbonate. She has had reasonable urine volume; however, patient continues to manifest s/s of uremia The rest of the past history is that of 7 pregnancies and left eye surgery for diabetic nephropathy. PERSONAL HISTORY: Patient hails from [place] and is , has 7 children, and has not had any complications in any of the pregnancies. FAMILY HISTORY: Parents are , and one of the siblings is diabetic. REVIEW OF SYSTEMS: The rest of the system review is negative for any head, eye , ear, nose, throat problem. Patient denies any chest pain, cough, shortness of breath, abdominal pain. No urinary frequency, urgency, hesitancy, hematuria. Patient denies any acute swelling of legs, joint pain, gout, seizures, syncope or other metabolic problem. PHYSICAL EXAMINATION: GENERAL: The patient is a pleasant Latin female who is currently slightly anxious and concerned about her present condition, but is in no acute distress. VITAL SIGNS: Her blood pressure had been very high initially, and at the time of this dictation is improved to 126/64, heart rate 82, temperature 98.6, respirations 17. HEAD: Unremarkable. EYES: Periorbital edema. Pale conjunctivae. Sclerae are anicteric. NOSE: Normal mucosa. THROAT: Tongue is pale. No pharyngeal congestion. NECK: Supple. No jugular venous distention. CHEST: Symmetrical. Lungs are clear. HEART: Regular rhythm, S1, S2 unremarkable. ABDOMEN: Obese, flat, soft, no masses. GENITALIA: Not examined. EXTREMITIES: No cyanosis, clubbing, edema. SKIN: Unremarkable. IMPRESSION: 1. History of diabetes, hypertension with chronic kidney disease, presently stage V. 2. Congestive heart failure, fluid overload. 3. Anemia. 4. History of left eye diabetic retinopathy, status post laser surgery. PLAN: This patient has been well monitored thus far. Her iron saturation is only 9, and for this, she is being started on IV iron. Her other lab studies include white count of 7, hematocrit 28%, and ABG shows severe acidosis, pH of 7.27, pCO2 is 27, bicarbonate is 12. TSH is upper normal and urinalysis does show 5 to 10 RBCs, leukocyte esterase negative, 2+ hemoglobin, 2+ protein. The chest x-ray has shown bilateral small pleural effusion, pulmonary venous congestion and a renal ultrasound has already been done that is unremarkable, right kidney 10.3, left kidney 10 cm. DISCUSSION: This patient has been well managed and at the present time, we need to consider dialysis. The daughter, a medical anthropology director and I had a long conversation with her regarding various options available, including no treatment, which was not advisable under the present circumstances hemo dialysis is the answer at present. Whether she is a candidate for peritoneal dialysis waas also discussed and of course, eventually transplant. With reference to the dialysis, patient can be started on hemodialysis at the present time. Because of the history of diabetic retinopathy already, I would consider her to be a good candidate for peritoneal dialysis. I would hope that the patient's condition stabilizes and eventually we can take care of her at the chronic dialysis center. Meanwhile, she will need further discussion and management, such as consideration for peritoneal dialysis. Once again, pls allow me to thank you for this interesting consultation Dictated By: CHARLIE GOEL/ELÍAS Conf#: [id number] DID#: [id number] ALF
[2016-07-02] MEDS ORDERED: INSULIN GLARGINE [LANtus] 3 ML PEN SC SCH (20:00)
[2016-07-02] MEDS: ATORVASTATIN 10 MG TAB PO SCH (20:53)
[2016-07-02] MEDS ORDERED: HYDROCODONE/APAP (5/325) TAB PO PRN ×2 (21:00)
[2016-07-03] VITALS (21 sets, daily range): BP systolic 117–201; BP diastolic 56–101; PULSE 72–90; RESP 16–20
[2016-07-03 01:52] LABS: CK-MB 3.31 ng/ml (0.0-2.4)
[2016-07-03 01:55] LABS: TROPONIN-I 0.022 ng/ml (0.00-0.12)
[2016-07-03 03:50] LABS: ADD SCAN DIFF NO
[2016-07-03 04:14] LABS: CALCIUM 7.7 mg/dl (8.4-10.2); CREATININE 3.41 mg/dl (0.44-1.00)
[2016-07-03 04:17] LABS: CHOL/HDL RATIO 2.1 RATIO
[2016-07-03 04:30] LABS: BASOPHILS % 0.9 % (0.0-2.0); EOSINOPHILS # 0.2 10^3/ul (0.0-0.5); EOSINOPHILS % 5.8 % (0.0-7.0); HEMATOCRIT 25.1 % (37.0-47.0); HEMOGLOBIN 8.6 g/dl (12.0-16.0); LYMPHOCYTES # 0.9 10^3/ul (0.8-2.9); LYMPHOCYTES % 25.7 % (15.0-51.0); MEAN CORPUSCULAR HGB CONC 34.3 g/dl (32.0-37.0); MEAN CORPUSCULAR VOLUME 90.6 fl (82.0-101.0); MEAN PLATELET VOLUME 9.8 fl (7.4-10.4); MONOCYTE # 0.3 10^3/ul (0.3-0.9); MONOCYTES % 9.5 % (0.0-11.0); NEUTROPHILS % 57.8 % (39.0-77.0); PLATELET COUNT 304 10^3/UL (140-415); RED BLOOD COUNT 2.77 10^6/ul (4.20-5.40); RED CELL DISTRIBUTION WIDTH 15.3 % (11.5-14.5); WHITE BLOOD COUNT 3.5 10^3/ul (4.8-10.8)
[2016-07-03 04:44] LABS: POTASSIUM 2.9 mmol/L (3.5-5.1)
[2016-07-03 04:45] LABS: THYROID STIMULATING HORMONE 7.16 MIU/L (0.465-4.680)
[2016-07-03] MEDS ORDERED: POTASSIUM CHLORIDE (SR) 20 MEQ TAB PO ONE (05:00)
[2016-07-03] MEDS: INSULIN ASPART [NOVOLOG] 3 ML PEN SC SCH ×4 (08:00→21:00)
[2016-07-03] MEDS: DOCUSATE SODIUM 100 MG CAP PO SCH ×2 (08:18→21:03)
[2016-07-03] MEDS: FAMOTIDINE 20 MG TAB PO SCH (08:18)
[2016-07-03] MEDS: CALCIUM ACETATE 667 MG CAP NGT SCH ×3 (08:18→17:57)
[2016-07-03] MEDS ORDERED: POTASSIUM CHLORIDE (SR) 20 MEQ TAB PO STA (08:49)
[2016-07-03] MEDS ORDERED: METOPROLOL (XL) 50 MG TAB PO SCH (09:00)
[2016-07-03] MEDS: NIFEdipine (XL) 60 MG TAB PO SCH ×2 (11:12→21:03)
[2016-07-03] MEDS: FUROSEMIDE 40 MG INJ IV SCH (11:13)
[2016-07-03] MEDS: hydrALAzine 20 MG INJ IV PRN (12:22)
[2016-07-03] MEDS: SOD FERRIC GLUC COMPLX 125 MG in SOD CHLORIDE 0.9% 100 ML IVPB SCH (12:27)
[2016-07-03] MEDS ORDERED: BISACODYL (EC) 5 MG TAB PO PRN (13:00)
--- NOTE | 2016-07-03 14:01 | PN ---
Date/Time of Note Date/Time of Note DATE: 07/03/16 TIME: 13:57 Assessment/Plan VTE Prophylaxis VTE Prophylaxis Intervention: LMWH Lines/Catheters IV C[facility]ter Type [facility]from [facility] Sal[place] Lock Urinary Cath still in place: No Assessment/Plan Chief Complaint/Hosp Course Subjective: No distress. No chest pain dyspnea. Updated family. Objective: Vss; sinus rhythm Physical exam No pallor JVD Reg no m/r/g CTAB Bs + nt nd, no R/R/G Minimal edema A/P 1. Acute likely diastolic decompensated CHF. Stable consider initiation of dialysis. Check echo. 2. CKD w progression. Check hepatitis panel, avoid PICC lines. Needs dialysis access. 3. Hypertensive urgency. Rule out ACS. 4. Diabetes/metabolic syndrome. Hypoglycemia noted. Decrease insulin Lantus. 5. Anemia-joon, possibly also acd 6. Djd 7. Possible hypothyroidism. Problems: Exam/Review of Systems Vital Signs Vitals Vital Signs Date Time Temp Pulse Resp B/P Pulse Ox O2 Delivery O2 Flow Rate FiO2 07/03/16 12:29 80 07/03/16 12:03 98.5 18 177/76 95 07/02/16 08:55 Room Air Intake and Output 07/02/16 07/02/16 07/03/16 15:00 23:00 07:00 Intake Total 1200 ml 1100 ml Output Total 4100 ml 950 ml Balance -2900 ml 150 ml Results Result Diagram: 07/03/16 0337 07/03/16 0337 Results 24 hrs Laboratory Tests Test 07/02/16 16:00 07/02/16 16:20 07/02/16 18:17 07/02/16 20:51 Thyroid Stimulating Hormone (TSH) 4.450 Creatine Kinase 402 H Creatine Kinase Index 1.4 Creatinine Kinase MB (Mass) 5.44 H Troponin I 0.014 Bedside Glucose 131 202 Test 07/03/16 00:47 07/03/16 02:55 07/03/16 03:03 07/03/16 03:29 Creatine Kinase 287 H Creatine Kinase Index 1.2 Creatinine Kinase MB (Mass) 3.31 H Troponin I 0.022 Bedside Glucose 40 *L 49 *L 104 Test 07/03/16 03:37 07/03/16 05:20 07/03/16 07:32 07/03/16 08:17 White Blood Count 3.5 #L Red Blood Count 2.77 L Hemoglobin 8.6 L Hematocrit 25.1 L Mean Corpuscular Volume 90.6 Mean Corpuscular Hemoglobin 31.0 Mean Corpuscular Hemoglobin Concent 34.3 Red Cell Distribution Width 15.3 H Platelet Count 304 Mean Platelet Volume 9.8 Neutrophils % 57.8 Lymphocytes % 25.7 Monocytes % 9.5 Eosinophils % 5.8 Basophils % 0.9 Nucleated Red Blood Cells % 0.0 Neutrophils # 2.0 Lymphocytes # 0.9 Monocytes # 0.3 Eosinophils # 0.2 Basophils # 0.0 Nucleated Red Blood Cells # 0.0 Sodium Level 138 Potassium Level 2.9 #*L Chloride Level 111 H Carbon Dioxide Level 22 Anion Gap 8 # Blood Urea Nitrogen 34 #H Creatinine 3.41 #H Glucose Level 104 Calcium Level 7.7 L Triglycerides Level 55 Cholesterol Level 161 LDL Cholesterol, Calculated 76 HDL Cholesterol 74 Cholesterol/HDL Ratio 2.1 Thyroid Stimulating Hormone (TSH) 7.160 H Hepatitis B Surface Antigen NEGATIVE Bedside Glucose 85 65 L 93 Test 07/03/16 08:43 07/03/16 12:07 Bedside Glucose 131 91 Medications Medications Current Medications Furosemide (Lasix) 40 mg DAILY IV Last administered on 07/03/16 11:13; Admin Dose 40 MG; Start 07/02/16 at 09:00 Nifedipine (Procardia Xl) 60 mg DAILY PO Last administered on 07/03/16 11:12; Admin Dose 60 MG; Start 07/02/16 at 09:00 Atorvastatin Calcium (Lipitor) 10 mg QHS PO Last administered on 07/02/16 20:53 ; Admin Dose 10 MG; Start 07/02/16 at 21:00 Docusate Sodium (Colace) 100 mg BID PO Last administered on 07/03/16 08:18; Admin Dose 100 MG; Start 07/02/16 at 09:00 Famotidine (Pepcid) 20 mg DAILY PO Last administered on 07/03/16 08:18; Admin Dose 20 MG; Start 07/02/16 at 09:00 Ondansetron HCl (Zofran Inj) 4 mg Q6H PRN IV NAUSEA AND/OR VOMITING; Start 07/02 at 08:30 Miscellaneous Information 1 ea NOTE XX ; Start 07/02/16 at 09:30 Glucose (Glutose) 15 gm Q15M PRN PO DECREASED GLUCOSE; Start 07/02/16 at 09:30 Glucose (Glutose) 22.5 gm Q15M PRN PO DECREASED GLUCOSE; Start 07/02/16 at 09:30 Dextrose (D50w Syringe) 25 ml Q15M PRN IV DECREASED GLUCOSE; Start 07/02/16 at 09:30 Dextrose (D50w Syringe) 50 ml Q15M PRN IV DECREASED GLUCOSE; Start 07/02/16 at 09:30 Glucagon (Glucagen) 1 mg Q15M PRN IM DECREASED GLUCOSE; Start 07/02/16 at 09:30 Glucose (Glutose) 15 gm Q15M PRN BUCCAL DECREASED GLUCOSE Last administered on 07/03/16 03:11; Admin Dose 15 GM; Start 07/02/16 at 09:30 Metoprolol Succinate 50 mg 50 mg DAILY PO Last administered on 07/03/16 11:13 ; Admin Dose 50 MG; Start 07/03/16 at 09:00 Ferric Sodium Gluconate Complex/ Sodium Chloride (Ferrlecit/NS) 110 ml @ 110 mls/hr Q24H IVPB Last administered on 07/03/16 12:27; Admin Dose 110 MLS/HR; Start 07/02/16 at 13:30; Stop 07/06/16 at 14:29 Hydralazine HCl (Apresoline) 10 mg Q4H PRN IV SBP>170 Last administered on 07/03 12:22; Admin Dose 10 MG; Start 07/02/16 at 16:00 Acetaminophen (Tylenol Tab) 650 mg Q4H PRN PO PAIN AND OR ELEVATED TEMP; Start 07/02/16 at 21:00 Acetaminophen/ Hydrocodone Bitart ([place] (5/325)) 1 tab Q4H PRN PO PAIN LEVEL 1 -5; Start 07/02/16 at 21:00 Acetaminophen/ Hydrocodone Bitart ([place] (5/325)) 2 tab Q4H PRN PO SEVERE PAIN LEVEL 7-10 Last administered on 07/02/16 21:25; Admin Dose 2 TAB; Start 07/02/16 at 21:00 Levothyroxine Sodium (Synthroid) 25 mcg DAILY@06 PO ; Start 07/04/16 at 06:00 Lactobacillus Acidophilus/ Rhamnosus (Culturelle) 1 cap BID PO ; Start 07/03/16 at 21:00 Bisacodyl (Dulcolax) 10 mg DAILY PRN PO CONSTIPATION; Start 07/03/16 at 13:00 FARHAN ELLINGTON MD Jul 03, 2016 14:01
--- NOTE | 2016-07-03 14:58 | PN ---
Date/Time of Note Date/Time of Note DATE: 07/03/16 TIME: 14:57 Assessment/Plan VTE Prophylaxis VTE Prophylaxis Intervention: other Lines/Catheters IV Catheter Type (from Nrs): Central line still needed: No Urinary Cath still in place: No Assessment/Plan Chief Complaint/Hosp Course IMPRESSION: Renal failure. RECOMMENDATIONS: SP placement of a dialysis catheter. Will continue HD May need Permcath Risks, benefits, complications, alternative therapies explained to the patient. All questions answered. Problems: Subjective 24 Hr Interval Summary Cardiovascular: no complaints Gastrointestinal: no complaints Genitourinary: no complaints Musculoskeletal: no complaints Skin: no complaints Exam/Review of Systems Vital Signs Vitals Vital Signs Date Time Temp Pulse Resp B/P Pulse Ox O2 Delivery O2 Flow Rate FiO2 07/03/16 12:29 80 07/03/16 12:03 98.5 18 177/76 95 07/02/16 08:55 Room Air Intake and Output 07/02/16 07/02/16 07/03/16 14:59 22:59 06:59 Intake Total 1200 ml 1100 ml Output Total 4100 ml 950 ml Balance -2900 ml 150 ml Exam Neck: non-tender, supple Respiratory: clear to auscultation, normal air movement Cardiovascular: nl pulses, regular rate and rhythm Results Result Diagram: 07/03/16 0337 07/03/16 0337 Results 24 hrs Laboratory Tests Test 07/02/16 16:00 07/02/16 16:20 07/02/16 18:17 07/02/16 20:51 Thyroid Stimulating Hormone (TSH) 4.450 Creatine Kinase 402 H Creatine Kinase Index 1.4 Creatinine Kinase MB (Mass) 5.44 H Troponin I 0.014 Bedside Glucose 131 202 Test 07/03/16 00:47 07/03/16 02:55 07/03/16 03:03 07/03/16 03:29 Creatine Kinase 287 H Creatine Kinase Index 1.2 Creatinine Kinase MB (Mass) 3.31 H Troponin I 0.022 Bedside Glucose 40 *L 49 *L 104 Test 07/03/16 03:37 07/03/16 05:20 07/03/16 07:32 07/03/16 08:17 White Blood Count 3.5 #L Red Blood Count 2.77 L Hemoglobin 8.6 L Hematocrit 25.1 L Mean Corpuscular Volume 90.6 Mean Corpuscular Hemoglobin 31.0 Mean Corpuscular Hemoglobin Concent 34.3 Red Cell Distribution Width 15.3 H Platelet Count 304 Mean Platelet Volume 9.8 Neutrophils % 57.8 Lymphocytes % 25.7 Monocytes % 9.5 Eosinophils % 5.8 Basophils % 0.9 Nucleated Red Blood Cells % 0.0 Neutrophils # 2.0 Lymphocytes # 0.9 Monocytes # 0.3 Eosinophils # 0.2 Basophils # 0.0 Nucleated Red Blood Cells # 0.0 Sodium Level 138 Potassium Level 2.9 #*L Chloride Level 111 H Carbon Dioxide Level 22 Anion Gap 8 # Blood Urea Nitrogen 34 #H Creatinine 3.41 #H Glucose Level 104 Calcium Level 7.7 L Triglycerides Level 55 Cholesterol Level 161 LDL Cholesterol, Calculated 76 HDL Cholesterol 74 Cholesterol/HDL Ratio 2.1 Thyroid Stimulating Hormone (TSH) 7.160 H Hepatitis B Surface Antigen NEGATIVE Bedside Glucose 85 65 L 93 Test 07/03/16 08:43 07/03/16 12:07 Bedside Glucose 131 91 Medications Medications Current Medications Furosemide (Lasix) 40 mg DAILY IV Last administered on 07/03/16 11:13; Admin Dose 40 MG; Start 07/02/16 at 09:00 Nifedipine (Procardia Xl) 60 mg DAILY PO Last administered on 07/03/16 11:12; Admin Dose 60 MG; Start 07/02/16 at 09:00 Atorvastatin Calcium (Lipitor) 10 mg QHS PO Last administered on 07/02/16 20:53 ; Admin Dose 10 MG; Start 07/02/16 at 21:00 Docusate Sodium (Colace) 100 mg BID PO Last administered on 07/03/16 08:18; Admin Dose 100 MG; Start 07/02/16 at 09:00 Famotidine (Pepcid) 20 mg DAILY PO Last administered on 07/03/16 08:18; Admin Dose 20 MG; Start 07/02/16 at 09:00 Ondansetron HCl (Zofran Inj) 4 mg Q6H PRN IV NAUSEA AND/OR VOMITING; Start 07/02 at 08:30 Miscellaneous Information 1 ea NOTE XX ; Start 07/02/16 at 09:30 Glucose (Glutose) 15 gm Q15M PRN PO DECREASED GLUCOSE; Start 07/02/16 at 09:30 Glucose (Glutose) 22.5 gm Q15M PRN PO DECREASED GLUCOSE; Start 07/02/16 at 09:30 Dextrose (D50w Syringe) 25 ml Q15M PRN IV DECREASED GLUCOSE; Start 07/02/16 at 09:30 Dextrose (D50w Syringe) 50 ml Q15M PRN IV DECREASED GLUCOSE; Start 07/02/16 at 09:30 Glucagon (Glucagen) 1 mg Q15M PRN IM DECREASED GLUCOSE; Start 07/02/16 at 09:30 Glucose (Glutose) 15 gm Q15M PRN BUCCAL DECREASED GLUCOSE Last administered on 07/03/16 03:11; Admin Dose 15 GM; Start 07/02/16 at 09:30 Metoprolol Succinate 50 mg 50 mg DAILY PO Last administered on 07/03/16 11:13 ; Admin Dose 50 MG; Start 07/03/16 at 09:00 Ferric Sodium Gluconate Complex/ Sodium Chloride (Ferrlecit/NS) 110 ml @ 110 mls/hr Q24H IVPB Last administered on 07/03/16 12:27; Admin Dose 110 MLS/HR; Start 07/02/16 at 13:30; Stop 07/06/16 at 14:29 Hydralazine HCl (Apresoline) 10 mg Q4H PRN IV SBP>170 Last administered on 07/03 12:22; Admin Dose 10 MG; Start 07/02/16 at 16:00 Acetaminophen (Tylenol Tab) 650 mg Q4H PRN PO PAIN AND OR ELEVATED TEMP; Start 07/02/16 at 21:00 Acetaminophen/ Hydrocodone Bitart ([place] (5/325)) 1 tab Q4H PRN PO PAIN LEVEL 1 -5; Start 07/02/16 at 21:00 Levothyroxine Sodium (Synthroid) 25 mcg DAILY@06 PO ; Start 07/04/16 at 06:00 Lactobacillus Acidophilus/ Rhamnosus (Culturelle) 1 cap BID PO ; Start 07/03/16 at 21:00 Bisacodyl (Dulcolax) 10 mg DAILY PRN PO CONSTIPATION; Start 07/03/16 at 13:00 SAILAJA ZAMORA MD Jul 03, 2016 14:58
--- NOTE | 2016-07-03 15:27 | CONS ---
Date/Time of Note Date/Time of Note DATE: 07/03/16 TIME: 15:21 Assessment/Plan Assessment/Plan Chief Complaint/Hosp Course IMPRESSION: 1. Diastolic, acute on chronic-EF 55% by echo this admit 2. Hypertension consistent with hypertension urgency/emergency currently downtrending on oral antihypertensives. 3. Shortness of breath likely secondary to #1. 4. Abnormal electrocardiogram, assess for acute coronary syndrome.-negative troponin x 3 5. Dizziness, rule out cardiac arrhythmia. 6. Renal failure. 7. Hyperkalemia-Now hypoklemia 8. Anemia. 9. Acidosis. Recc: -Tele -serial ecg -Increase procardia XL/toprol -add hydralazine for ongoing elevated BP -HD for volume removal Problems: Consultation Date/Type/Reason Admit Date/Time Jul 02, 2016 at 06:34 Initial Consult Date 07/02/2016 Type of Consultation: Cardiology Reason for Consultation HTN/CHF Referring Provider: JULIO DONOVAN MD Exam/Review of Systems Vital Signs Vitals Vital Signs Date Time Temp Pulse Resp B/P Pulse Ox O2 Delivery O2 Flow Rate FiO2 07/03/16 12:29 80 07/03/16 12:03 98.5 18 177/76 95 07/02/16 08:55 Room Air Intake and Output 07/02/16 07/02/16 07/03/16 15:00 23:00 07:00 Intake Total 1200 ml 1100 ml Output Total 4100 ml 950 ml Balance -2900 ml 150 ml Exam Review of Systems: CONSTITUTIONAL: No fevers, chills. PULMONARY: No sob CARDIOVASCULAR: No chest pain/palpitations GASTROINTESTINAL: No nausea/vomiting. GENITOURINARY: No hematuria/dysuria. MUSCULOSKELETAL: No myagias/arthalgias. PSYCHIATRIC: The patient denies depression. NEUROLOGIC: No weakness Constitutional: alert Psych: no complaints Head: normocephalic ENMT: mucosa pink and moist Neck: jvd (9 cm water), supple Respiratory: diminished breath sounds (at bases/B) Cardiovascular: regular rate and rhythm Gastrointestinal: non-tender, soft Musculoskeletal: muscle tone (normal) Extremities: edema (trace/B) Neurological: other (No focal deficts) Results Result Diagram: 07/03/16 0337 07/03/16 1435 Results 24 hrs Laboratory Tests Test 07/02/16 16:00 07/02/16 16:20 07/02/16 18:17 07/02/16 20:51 Thyroid Stimulating Hormone (TSH) 4.450 Creatine Kinase 402 H Creatine Kinase Index 1.4 Creatinine Kinase MB (Mass) 5.44 H Troponin I 0.014 Bedside Glucose 131 202 Test 07/03/16 00:47 07/03/16 02:55 07/03/16 03:03 07/03/16 03:29 Creatine Kinase 287 H Creatine Kinase Index 1.2 Creatinine Kinase MB (Mass) 3.31 H Troponin I 0.022 Bedside Glucose 40 *L 49 *L 104 Test 07/03/16 03:37 07/03/16 05:20 07/03/16 07:32 07/03/16 08:17 White Blood Count 3.5 #L Red Blood Count 2.77 L Hemoglobin 8.6 L Hematocrit 25.1 L Mean Corpuscular Volume 90.6 Mean Corpuscular Hemoglobin 31.0 Mean Corpuscular Hemoglobin Concent 34.3 Red Cell Distribution Width 15.3 H Platelet Count 304 Mean Platelet Volume 9.8 Neutrophils % 57.8 Lymphocytes % 25.7 Monocytes % 9.5 Eosinophils % 5.8 Basophils % 0.9 Nucleated Red Blood Cells % 0.0 Neutrophils # 2.0 Lymphocytes # 0.9 Monocytes # 0.3 Eosinophils # 0.2 Basophils # 0.0 Nucleated Red Blood Cells # 0.0 Sodium Level 138 Potassium Level 2.9 #*L Chloride Level 111 H Carbon Dioxide Level 22 Anion Gap 8 # Blood Urea Nitrogen 34 #H Creatinine 3.41 #H Glucose Level 104 Calcium Level 7.7 L Triglycerides Level 55 Cholesterol Level 161 LDL Cholesterol, Calculated 76 HDL Cholesterol 74 Cholesterol/HDL Ratio 2.1 Thyroid Stimulating Hormone (TSH) 7.160 H Hepatitis B Surface Antigen NEGATIVE Bedside Glucose 85 65 L 93 Test 07/03/16 08:43 07/03/16 12:07 07/03/16 14:35 Bedside Glucose 131 91 Potassium Level 3.1 L Medications Medications Current Medications Furosemide (Lasix) 40 mg DAILY IV Last administered on 07/03/16 11:13; Admin Dose 40 MG; Start 07/02/16 at 09:00 Nifedipine (Procardia Xl) 60 mg DAILY PO Last administered on 07/03/16 11:12; Admin Dose 60 MG; Start 07/02/16 at 09:00 Atorvastatin Calcium (Lipitor) 10 mg QHS PO Last administered on 07/02/16 20:53 ; Admin Dose 10 MG; Start 07/02/16 at 21:00 Docusate Sodium (Colace) 100 mg BID PO Last administered on 07/03/16 08:18; Admin Dose 100 MG; Start 07/02/16 at 09:00 Famotidine (Pepcid) 20 mg DAILY PO Last administered on 07/03/16 08:18; Admin Dose 20 MG; Start 07/02/16 at 09:00 Ondansetron HCl (Zofran Inj) 4 mg Q6H PRN IV NAUSEA AND/OR VOMITING; Start 07/02 at 08:30 Miscellaneous Information 1 ea NOTE XX ; Start 07/02/16 at 09:30 Glucose (Glutose) 15 gm Q15M PRN PO DECREASED GLUCOSE; Start 07/02/16 at 09:30 Glucose (Glutose) 22.5 gm Q15M PRN PO DECREASED GLUCOSE; Start 07/02/16 at 09:30 Dextrose (D50w Syringe) 25 ml Q15M PRN IV DECREASED GLUCOSE; Start 07/02/16 at 09:30 Dextrose (D50w Syringe) 50 ml Q15M PRN IV DECREASED GLUCOSE; Start 07/02/16 at 09:30 Glucagon (Glucagen) 1 mg Q15M PRN IM DECREASED GLUCOSE; Start 07/02/16 at 09:30 Glucose (Glutose) 15 gm Q15M PRN BUCCAL DECREASED GLUCOSE Last administered on 07/03/16 03:11; Admin Dose 15 GM; Start 07/02/16 at 09:30 Metoprolol Succinate 50 mg 50 mg DAILY PO Last administered on 07/03/16 11:13 ; Admin Dose 50 MG; Start 07/03/16 at 09:00 Ferric Sodium Gluconate Complex/ Sodium Chloride (Ferrlecit/NS) 110 ml @ 110 mls/hr Q24H IVPB Last administered on 07/03/16 12:27; Admin Dose 110 MLS/HR; Start 07/02/16 at 13:30; Stop 07/06/16 at 14:29 Hydralazine HCl (Apresoline) 10 mg Q4H PRN IV SBP>170 Last administered on 07/03 12:22; Admin Dose 10 MG; Start 07/02/16 at 16:00 Acetaminophen (Tylenol Tab) 650 mg Q4H PRN PO PAIN AND OR ELEVATED TEMP; Start 07/02/16 at 21:00 Acetaminophen/ Hydrocodone Bitart ([place] (5/325)) 1 tab Q4H PRN PO PAIN LEVEL 1 -5; Start 07/02/16 at 21:00 Levothyroxine Sodium (Synthroid) 25 mcg DAILY@06 PO ; Start 07/04/16 at 06:00 Lactobacillus Acidophilus/ Rhamnosus (Culturelle) 1 cap BID PO ; Start 07/03/16 at 21:00 Bisacodyl (Dulcolax) 10 mg DAILY PRN PO CONSTIPATION; Start 07/03/16 at 13:00 GILSON ARAYA Jul 03, 2016 15:27
[2016-07-03] MEDS ORDERED: INSULIN GLARGINE [LANtus] 3 ML PEN SC SCH (20:00)
[2016-07-03] MEDS: ATORVASTATIN 10 MG TAB PO SCH (21:03)
[2016-07-03] MEDS: LACTOBACILLUS RHAMNOSUS CAP PO SCH (21:03)
[2016-07-03] MEDS: METOPROLOL (XL) 50 MG TAB PO SCH (21:04)
--- NOTE | 2016-07-03 23:01 | CONS ---
DATE OF ADMISSION: 07/02/2016 DATE OF CONSULTATION: This is a pleasant 52-year-old para 7 7 Latin female with a history of diabetes, hypertension, and has presented with fluid overload with underlying end-stage kidney disease. She has been dialyzed already and has done very well. She feels much better after dialysis. Earlier this morning, potassium was very low and patient was given oral replacement. The repeat potassium is not available at this time. I have discussed case with the family re need for some different access before the discharge plans and can be made. I will be following the patient's clinical course closely and be happy to assist you in placement of this patient at the outpatient dialysis center. Dictated By: CHARLIE GOEL/ELÍAS Conf#: [id number] DID#: [id number] MTDD
[2016-07-04] VITALS (12 sets, daily range): BP systolic 129–192; BP diastolic 62–85; PULSE 75–83; RESP 18–20
[2016-07-04] MEDS: LEVOTHYROXINE 25 MCG TAB PO SCH (05:50)
[2016-07-04 07:43] LABS: ADD SCAN DIFF NO
[2016-07-04 07:44] LABS: HAAIG REFLEX REFLEX FILED
[2016-07-04 07:48] LABS: BASOPHILS % 0.9 % (0.0-2.0); EOSINOPHILS # 0.2 10^3/ul (0.0-0.5); EOSINOPHILS % 4.8 % (0.0-7.0); HEMATOCRIT 23.1 % (37.0-47.0); HEMOGLOBIN 7.7 g/dl (12.0-16.0); LYMPHOCYTES # 1.1 10^3/ul (0.8-2.9); LYMPHOCYTES % 25.7 % (15.0-51.0); MEAN CORPUSCULAR HGB CONC 33.3 g/dl (32.0-37.0); MEAN CORPUSCULAR VOLUME 93.1 fl (82.0-101.0); MEAN PLATELET VOLUME 9.8 fl (7.4-10.4); MONOCYTE # 0.5 10^3/ul (0.3-0.9); MONOCYTES % 11.4 % (0.0-11.0); NEUTROPHIL # 2.5 10^3/ul (1.6-7.5); PLATELET COUNT 255 10^3/UL (140-415); RED BLOOD COUNT 2.48 10^6/ul (4.20-5.40); RED CELL DISTRIBUTION WIDTH 15.8 % (11.5-14.5); WHITE BLOOD COUNT 4.4 10^3/ul (4.8-10.8)
[2016-07-04] MEDS: INSULIN ASPART [NOVOLOG] 3 ML PEN SC SCH ×4 (08:00→20:46)
[2016-07-04 08:19] LABS: CALCIUM 7.2 mg/dl (8.4-10.2); CREATININE 3.21 mg/dl (0.44-1.00); PHOSPHORUS 4.6 mg/dl (2.5-4.9); POTASSIUM 3.2 mmol/L (3.5-5.1)
[2016-07-04 08:20] LABS: ALBUMIN 2.4 g/dl (3.3-4.9); ALBUMIN/GLOBULIN RATIO 0.85; BILIRUBIN,INDIRECT 0.1 mg/dl (0-1.1); BILIRUBIN,TOTAL 0.1 mg/dl (0.2-1.3); MAGNESIUM 2.1 mg/dl (1.7-2.5); TOTAL PROTEIN 5.2 g/dl (6.1-8.1)
[2016-07-04] MEDS: METOPROLOL (XL) 50 MG TAB PO SCH ×2 (10:07→20:39)
[2016-07-04] MEDS: NIFEdipine (XL) 60 MG TAB PO SCH ×2 (10:08→20:40)
[2016-07-04] MEDS: FUROSEMIDE 40 MG INJ IV SCH (10:08)
[2016-07-04] MEDS: DOCUSATE SODIUM 100 MG CAP PO SCH ×2 (10:08→20:40)
[2016-07-04] MEDS: CALCIUM ACETATE 667 MG CAP NGT SCH ×3 (10:08→17:34)
[2016-07-04 10:09] LABS: TRIIODOTHYRONINE 0.97 ng/ml (0.97-1.69)
[2016-07-04] MEDS: FAMOTIDINE 20 MG TAB PO SCH (10:09)
[2016-07-04] MEDS: LACTOBACILLUS RHAMNOSUS CAP PO SCH ×2 (10:09→20:39)
[2016-07-04 10:26] LABS: HEPATITIS B CORE ANTIBODY NEGATIVE (NEGATIVE)
--- NOTE | 2016-07-04 10:29 | CONS ---
Date/Time of Note Date/Time of Note DATE: 07/04/16 TIME: 10:29 Assessment/Plan Assessment/Plan Additional Assessment/Plan 55 yo Female with 1) S/p Initiation of HD, Sp HD Treatment #2 2) ESRD 3) Chronic HTN 4) Hyperkalemia Resolved 5) Hypokalemia 6) Anemia, Chronic 7) DM with Renal complication, CKD Will hold off HD today Supplement K+ CM for HD Center placement to [facility] Consultation Date/Type/Reason Admit Date/Time Jul 02, 2016 at 06:34 Initial Consult Date Type of Consultation: Renal Referring Provider: JULIO DONOVAN MD 24 HR Interval Summary Free Text/Dictation S/p HD yesterday #2, No new complaints Exam/Review of Systems Vital Signs Vitals Vital Signs Date Time Temp Pulse Resp B/P Pulse Ox O2 Delivery O2 Flow Rate FiO2 07/04/16 08:26 78 07/04/16 07:36 98.5 18 192/85 99 07/02/16 08:55 Room Air Intake and Output 07/03/16 07/03/16 07/04/16 15:00 23:00 07:00 Intake Total 300 ml 710 ml 200 ml Output Total 3800 ml Balance -3500 ml 710 ml 200 ml Exam Constitutional: No distress ENMT: mucosa pink and moist Neck: No jvd Respiratory: clear to auscultation Cardiovascular: regular rate and rhythm, No edema Gastrointestinal: soft Extremities: other (Kyler Catheter) Neurological: RANCH HELPER II-XII intact, No lethargic Skin: No diaphoresis Results Result Diagram: 07/04/16 0640 07/04/16 0640 Results 24 hrs Laboratory Tests Test 07/03/16 12:07 07/03/16 14:35 07/03/16 17:08 07/03/16 20:15 Bedside Glucose 91 141 158 Potassium Level 3.1 L Test 07/04/16 06:40 07/04/16 08:07 White Blood Count 4.4 #L Red Blood Count 2.48 L Hemoglobin 7.7 L Hematocrit 23.1 L Mean Corpuscular Volume 93.1 Mean Corpuscular Hemoglobin 31.0 Mean Corpuscular Hemoglobin Concent 33.3 Red Cell Distribution Width 15.8 H Platelet Count 255 Mean Platelet Volume 9.8 Neutrophils % 57.0 Lymphocytes % 25.7 Monocytes % 11.4 H Eosinophils % 4.8 Basophils % 0.9 Nucleated Red Blood Cells % 0.0 Neutrophils # 2.5 Lymphocytes # 1.1 Monocytes # 0.5 Eosinophils # 0.2 Basophils # 0.0 Nucleated Red Blood Cells # 0.0 Sodium Level 136 Potassium Level 3.2 L Chloride Level 108 Carbon Dioxide Level 25 Anion Gap 6 L Blood Urea Nitrogen 32 H Creatinine 3.21 H Glucose Level 110 Calcium Level 7.2 L Phosphorus Level 4.6 Magnesium Level 2.1 Total Bilirubin 0.1 L Direct Bilirubin 0.00 Indirect Bilirubin 0.1 Aspartate Amino Transf (AST/SGOT) 19 Alanine Aminotransferase (ALT/SGPT) 30 Alkaline Phosphatase 102 Total Protein 5.2 L Albumin 2.4 L Globulin 2.80 Albumin/Globulin Ratio 0.85 Free Thyroxine 1.12 Total Triiodothyronine Pending Hepatitis B Surface Antigen Pending Hepatitis B Core Total Antibody Pending Hepatitis C Antibody Pending Bedside Glucose 107 Medications Medications Current Medications Furosemide (Lasix) 40 mg DAILY IV Last administered on 07/04/16 10:08; Admin Dose 40 MG; Start 07/02/16 at 09:00 Atorvastatin Calcium (Lipitor) 10 mg QHS PO Last administered on 07/03/16 21: 03; Admin Dose 10 MG; Start 07/02/16 at 21:00 Docusate Sodium (Colace) 100 mg BID PO Last administered on 07/04/16 10:08; Admin Dose 100 MG; Start 07/02/16 at 09:00 Famotidine (Pepcid) 20 mg DAILY PO Last administered on 07/04/16 10:09; Admin Dose 20 MG; Start 07/02/16 at 09:00 Ondansetron HCl (Zofran Inj) 4 mg Q6H PRN IV NAUSEA AND/OR VOMITING; Start 07/02 at 08:30 Miscellaneous Information 1 ea NOTE XX ; Start 07/02/16 at 09:30 Glucose (Glutose) 15 gm Q15M PRN PO DECREASED GLUCOSE; Start 07/02/16 at 09:30 Glucose (Glutose) 22.5 gm Q15M PRN PO DECREASED GLUCOSE; Start 07/02/16 at 09:30 Dextrose (D50w Syringe) 25 ml Q15M PRN IV DECREASED GLUCOSE; Start 07/02/16 at 09:30 Dextrose (D50w Syringe) 50 ml Q15M PRN IV DECREASED GLUCOSE; Start 07/02/16 at 09:30 Glucagon (Glucagen) 1 mg Q15M PRN IM DECREASED GLUCOSE; Start 07/02/16 at 09:30 Glucose 15 gm 15 gm Q15M PRN BUCCAL DECREASED GLUCOSE Last administered on 07/03 03:11; Admin Dose 15 GM; Start 07/02/16 at 09:30 Ferric Sodium Gluconate Complex/ Sodium Chloride (Ferrlecit/NS) 110 ml @ 110 mls/hr Q24H IVPB Last administered on 07/03/16 12:27; Admin Dose 110 MLS/HR; Start 07/02/16 at 13:30; Stop 07/06/16 at 14:29 Hydralazine HCl (Apresoline) 10 mg Q4H PRN IV SBP>170 Last administered on 07/03 12:22; Admin Dose 10 MG; Start 07/02/16 at 16:00 Acetaminophen (Tylenol Tab) 650 mg Q4H PRN PO PAIN AND OR ELEVATED TEMP; Start 07/02/16 at 21:00 Acetaminophen/ Hydrocodone Bitart ([place] (5/325)) 1 tab Q4H PRN PO PAIN LEVEL 1 -5; Start 07/02/16 at 21:00 Levothyroxine Sodium (Synthroid) 25 mcg DAILY@06 PO Last administered on 05:50; Admin Dose 25 MCG; Start 07/04/16 at 06:00 Lactobacillus Acidophilus/ Rhamnosus (Culturelle) 1 cap BID PO Last administered on 07/04/16 10:09; Admin Dose 1 CAP; Start 07/03/16 at 21:00 Bisacodyl (Dulcolax) 10 mg DAILY PRN PO CONSTIPATION; Start 07/03/16 at 13:00 Metoprolol Succinate (Toprol Xl) 50 mg BID PO Last administered on 07/04/16 10 :07; Admin Dose 50 MG; Start 07/03/16 at 21:00 Nifedipine (Procardia Xl) 60 mg BID PO Last administered on 07/04/16 10:08; Admin Dose 60 MG; Start 07/03/16 at 21:00 Procedures Procedures PROCEDURE: Renal US. CLINICAL INDICATION: Renal failure TECHNIQUE: Multiple sonographic images of the kidneys and bladder were obtained. The images were reviewed on a PACS workstation. COMPARISON: CT abdomen pelvis 06/27/2016 FINDINGS: The kidneys are well visualized. The right kidney measures 10.3 cm. The left kidney measures 10 cm. There are no focal areas of abnormal echogenicity. There is no evidence for obstructive uropathy. The bladder is unremarkable. There are no filling defects or stones in the bladder. IMPRESSION: 1. Unremarkable renal ultrasound. RPTAT: [facility] .Phillip Gayle MD, MD Date Time Electronically viewed and signed by .Phillip Gayle MD, MD on 07/02/2016 09:05 VIOLET MCFADDEN MD Jul 04, 2016 10:29
--- NOTE | 2016-07-04 11:13 | CONS ---
Date/Time of Note Date/Time of Note DATE: 07/04/16 TIME: 11:11 Assessment/Plan Assessment/Plan Additional Assessment/Plan 1. Diastolic, acute on chronic-EF 55% by echo this admit - con't to remove fluid as tolerated. 2. Hypertension consistent with hypertension urgency/emergency currently downtrending on oral antihypertensives- on tyherapy - BP still high - add additional Rx now. 3. Shortness of breath likely secondary to #1. 4. Abnormal electrocardiogram, assess for acute coronary syndrome.-negative troponin x 3 - no evidence of acute ischemia now. 5. Dizziness, rule out cardiac arrhythmia. 6. Renal failure- ESRD on HD. 7. Hyperkalemia-Now hypoklemia 8. Anemia. 9. Acidosis. Consultation Date/Type/Reason Admit Date/Time Jul 02, 2016 at 06:34 Initial Consult Date Type of Consultation: Renal Referring Provider: JULIO DONOVAN MD 24 HR Interval Summary Free Text/Dictation NO acute events - BP satill very high - con't to adjust rx ROS: No fever, no chills, no nausea, no vomiting, no diarrhea/constipation No recent weight changes No chest pain, no PND, no orthopnea No dizziness, blurred vision No thirst, no heat or cold intolerance Exam/Review of Systems Vital Signs Vitals Vital Signs Date Time Temp Pulse Resp B/P Pulse Ox O2 Delivery O2 Flow Rate FiO2 07/04/16 08:26 78 07/04/16 07:36 98.5 18 192/85 99 07/02/16 08:55 Room Air Intake and Output 07/03/16 07/03/16 07/04/16 15:00 23:00 07:00 Intake Total 300 ml 710 ml 200 ml Output Total 3800 ml Balance -3500 ml 710 ml 200 ml Exam General: WN/WD/NAD, AOx 2-3 HEENT: Unicetric/atraumatic/EOMI (follow commands) NECK: JVD elevated, no thyromegaly Lymph: no lymphadenopathy HEART: regular with no S3, II/ systolic murmur at apex LUNGS: Coarse sounds ABD: soft, NT, ND, +BS : Intact Neuro: non focal SKIN: chronic changes EXT: trace edema Results Result Diagram: 07/04/1640 07/04/1640 Results 24 hrs Laboratory Tests Test 07/03/16 12:07 07/03/16 14:35 07/03/16 17:08 07/03/16 20:15 Bedside Glucose 91 141 158 Potassium Level 3.1 L Test 07/04/16 06:40 07/04/16 08:07 White Blood Count 4.4 #L Red Blood Count 2.48 L Hemoglobin 7.7 L Hematocrit 23.1 L Mean Corpuscular Volume 93.1 Mean Corpuscular Hemoglobin 31.0 Mean Corpuscular Hemoglobin Concent 33.3 Red Cell Distribution Width 15.8 H Platelet Count 255 Mean Platelet Volume 9.8 Neutrophils % 57.0 Lymphocytes % 25.7 Monocytes % 11.4 H Eosinophils % 4.8 Basophils % 0.9 Nucleated Red Blood Cells % 0.0 Neutrophils # 2.5 Lymphocytes # 1.1 Monocytes # 0.5 Eosinophils # 0.2 Basophils # 0.0 Nucleated Red Blood Cells # 0.0 Sodium Level 136 Potassium Level 3.2 L Chloride Level 108 Carbon Dioxide Level 25 Anion Gap 6 L Blood Urea Nitrogen 32 H Creatinine 3.21 H Glucose Level 110 Calcium Level 7.2 L Phosphorus Level 4.6 Magnesium Level 2.1 Total Bilirubin 0.1 L Direct Bilirubin 0.00 Indirect Bilirubin 0.1 Aspartate Amino Transf (AST/SGOT) 19 Alanine Aminotransferase (ALT/SGPT) 30 Alkaline Phosphatase 102 Total Protein 5.2 L Albumin 2.4 L Globulin 2.80 Albumin/Globulin Ratio 0.85 Free Thyroxine 1.12 Total Triiodothyronine 0.97 Hepatitis B Surface Antigen NEGATIVE Hepatitis B Core Total Antibody NEGATIVE Hepatitis C Antibody Pending Bedside Glucose 107 Medications Medications Current Medications Furosemide (Lasix) 40 mg DAILY IV Last administered on 07/04/16 10:08; Admin Dose 40 MG; Start 07/02/16 at 09:00 Atorvastatin Calcium (Lipitor) 10 mg QHS PO Last administered on 07/03/16 21: 03; Admin Dose 10 MG; Start 07/02/16 at 21:00 Docusate Sodium (Colace) 100 mg BID PO Last administered on 07/04/16 10:08; Admin Dose 100 MG; Start 07/02/16 at 09:00 Famotidine (Pepcid) 20 mg DAILY PO Last administered on 07/04/16 10:09; Admin Dose 20 MG; Start 07/02/16 at 09:00 Ondansetron HCl (Zofran Inj) 4 mg Q6H PRN IV NAUSEA AND/OR VOMITING; Start 07/02 at 08:30 Miscellaneous Information 1 ea NOTE XX ; Start 07/02/16 at 09:30 Glucose (Glutose) 15 gm Q15M PRN PO DECREASED GLUCOSE; Start 07/02/16 at 09:30 Glucose (Glutose) 22.5 gm Q15M PRN PO DECREASED GLUCOSE; Start 07/02/16 at 09:30 Dextrose (D50w Syringe) 25 ml Q15M PRN IV DECREASED GLUCOSE; Start 07/02/16 at 09:30 Dextrose (D50w Syringe) 50 ml Q15M PRN IV DECREASED GLUCOSE; Start 07/02/16 at 09:30 Glucagon (Glucagen) 1 mg Q15M PRN IM DECREASED GLUCOSE; Start 07/02/16 at 09:30 Glucose 15 gm 15 gm Q15M PRN BUCCAL DECREASED GLUCOSE Last administered on 07/03 03:11; Admin Dose 15 GM; Start 07/02/16 at 09:30 Ferric Sodium Gluconate Complex/ Sodium Chloride (Ferrlecit/NS) 110 ml @ 110 mls/hr Q24H IVPB Last administered on 07/03/16 12:27; Admin Dose 110 MLS/HR; Start 07/02/16 at 13:30; Stop 07/06/16 at 14:29 Hydralazine HCl (Apresoline) 10 mg Q4H PRN IV SBP>170 Last administered on 07/03 12:22; Admin Dose 10 MG; Start 07/02/16 at 16:00 Acetaminophen (Tylenol Tab) 650 mg Q4H PRN PO PAIN AND OR ELEVATED TEMP; Start 07/02/16 at 21:00 Acetaminophen/ Hydrocodone Bitart ([place] (5/325)) 1 tab Q4H PRN PO PAIN LEVEL 1 -5; Start 07/02/16 at 21:00 Levothyroxine Sodium (Synthroid) 25 mcg DAILY@06 PO Last administered on 05:50; Admin Dose 25 MCG; Start 07/04/16 at 06:00 Lactobacillus Acidophilus/ Rhamnosus (Culturelle) 1 cap BID PO Last administered on 07/04/16 10:09; Admin Dose 1 CAP; Start 07/03/16 at 21:00 Bisacodyl (Dulcolax) 10 mg DAILY PRN PO CONSTIPATION; Start 07/03/16 at 13:00 Metoprolol Succinate (Toprol Xl) 50 mg BID PO Last administered on 07/04/16 10 :07; Admin Dose 50 MG; Start 07/03/16 at 21:00 Nifedipine (Procardia Xl) 60 mg BID PO Last administered on 07/04/16 10:08; Admin Dose 60 MG; Start 07/03/16 at 21:00 KATHERINE CONTE MD Jul 04, 2016 11:13
[2016-07-04] MEDS: ISOSORBIDE DINITRATE 20 MG TAB PO SCH ×2 (12:08→20:39)
--- NOTE | 2016-07-04 12:54 | PN ---
Date/Time of Note Date/Time of Note DATE: 07/04/16 TIME: 12:51 Assessment/Plan VTE Prophylaxis VTE Prophylaxis Intervention: heparin, LMWH Lines/Catheters IV Catheter Type (from Nrs): Saline Lock Urinary Cath still in place: No Assessment/Plan Chief Complaint/Hosp Course Subjective: 07/03- no distress. No chest pain dyspnea. Updated family. 07/04- no events Objective: Vss; SR; wt?? Physical exam No pallor JVD Reg no m/r/g CTAB Bs + nt nd, no R/R/G Minimal edema A/P 1. Acute ddCHF. Stable consider HD initiation if creatinine worsen. ef=55%. 2. CKD w progression. Hep panel done, avoid PICC. HD avf access? 3. Htn urgency. No ACS. DC home tomorrow if ok w Nephrology. 4. DM/metabolic syndrome. Hypoglycemia noted. Decreased insulin Lantus. 5. Anemia-joon, possibly also acd. occult/ iron ordered 6. Djd 7. Possible hypothyroidism. Problems: Exam/Review of Systems Vital Signs Vitals Vital Signs Date Time Temp Pulse Resp B/P Pulse Ox O2 Delivery O2 Flow Rate FiO2 07/04/16 12:10 78 07/04/16 11:58 98.6 18 137/74 96 07/02/16 08:55 Room Air Intake and Output 07/03/16 07/03/16 07/04/16 15:00 23:00 07:00 Intake Total 300 ml 710 ml 200 ml Output Total 3800 ml Balance -3500 ml 710 ml 200 ml Results Result Diagram: 07/04/16 0640 07/04/16 0640 Results 24 hrs Laboratory Tests Test 07/03/16 14:35 07/03/16 17:08 07/03/16 20:15 07/04/16 06:40 Potassium Level 3.1 L 3.2 L Bedside Glucose 141 158 White Blood Count 4.4 #L Red Blood Count 2.48 L Hemoglobin 7.7 L Hematocrit 23.1 L Mean Corpuscular Volume 93.1 Mean Corpuscular Hemoglobin 31.0 Mean Corpuscular Hemoglobin Concent 33.3 Red Cell Distribution Width 15.8 H Platelet Count 255 Mean Platelet Volume 9.8 Neutrophils % 57.0 Lymphocytes % 25.7 Monocytes % 11.4 H Eosinophils % 4.8 Basophils % 0.9 Nucleated Red Blood Cells % 0.0 Neutrophils # 2.5 Lymphocytes # 1.1 Monocytes # 0.5 Eosinophils # 0.2 Basophils # 0.0 Nucleated Red Blood Cells # 0.0 Sodium Level 136 Chloride Level 108 Carbon Dioxide Level 25 Anion Gap 6 L Blood Urea Nitrogen 32 H Creatinine 3.21 H Glucose Level 110 Calcium Level 7.2 L Phosphorus Level 4.6 Magnesium Level 2.1 Total Bilirubin 0.1 L Direct Bilirubin 0.00 Indirect Bilirubin 0.1 Aspartate Amino Transf (AST/SGOT) 19 Alanine Aminotransferase (ALT/SGPT) 30 Alkaline Phosphatase 102 Total Protein 5.2 L Albumin 2.4 L Globulin 2.80 Albumin/Globulin Ratio 0.85 Free Thyroxine 1.12 Total Triiodothyronine 0.97 Hepatitis B Surface Antigen NEGATIVE Hepatitis B Core Total Antibody NEGATIVE Hepatitis C Antibody NEGATIVE Test 07/04/16 08:07 07/04/16 12:12 Bedside Glucose 107 147 Medications Medications Current Medications Furosemide (Lasix) 40 mg DAILY IV Last administered on 07/04/16 10:08; Admin Dose 40 MG; Start 07/02/16 at 09:00 Atorvastatin Calcium (Lipitor) 10 mg QHS PO Last administered on 07/03/16 21: 03; Admin Dose 10 MG; Start 07/02/16 at 21:00 Docusate Sodium (Colace) 100 mg BID PO Last administered on 07/04/16 10:08; Admin Dose 100 MG; Start 07/02/16 at 09:00 Famotidine (Pepcid) 20 mg DAILY PO Last administered on 07/04/16 10:09; Admin Dose 20 MG; Start 07/02/16 at 09:00 Ondansetron HCl (Zofran Inj) 4 mg Q6H PRN IV NAUSEA AND/OR VOMITING; Start 07/02 at 08:30 Miscellaneous Information 1 ea NOTE XX ; Start 07/02/16 at 09:30 Glucose (Glutose) 15 gm Q15M PRN PO DECREASED GLUCOSE; Start 07/02/16 at 09:30 Glucose (Glutose) 22.5 gm Q15M PRN PO DECREASED GLUCOSE; Start 07/02/16 at 09:30 Dextrose (D50w Syringe) 25 ml Q15M PRN IV DECREASED GLUCOSE; Start 07/02/16 at 09:30 Dextrose (D50w Syringe) 50 ml Q15M PRN IV DECREASED GLUCOSE; Start 07/02/16 at 09:30 Glucagon (Glucagen) 1 mg Q15M PRN IM DECREASED GLUCOSE; Start 07/02/16 at 09:30 Glucose 15 gm 15 gm Q15M PRN BUCCAL DECREASED GLUCOSE Last administered on 07/03 03:11; Admin Dose 15 GM; Start 07/02/16 at 09:30 Ferric Sodium Gluconate Complex/ Sodium Chloride (Ferrlecit/NS) 110 ml @ 110 mls/hr Q24H IVPB Last administered on 07/03/16 12:27; Admin Dose 110 MLS/HR; Start 07/02/16 at 13:30; Stop 07/06/16 at 14:29 Hydralazine HCl (Apresoline) 10 mg Q4H PRN IV SBP>170 Last administered on 07/03 12:22; Admin Dose 10 MG; Start 07/02/16 at 16:00 Acetaminophen (Tylenol Tab) 650 mg Q4H PRN PO PAIN AND OR ELEVATED TEMP; Start 07/02/16 at 21:00 Acetaminophen/ Hydrocodone Bitart ([place] (5/325)) 1 tab Q4H PRN PO PAIN LEVEL 1 -5; Start 07/02/16 at 21:00 Levothyroxine Sodium (Synthroid) 25 mcg DAILY@06 PO Last administered on 05:50; Admin Dose 25 MCG; Start 07/04/16 at 06:00 Lactobacillus Acidophilus/ Rhamnosus (Culturelle) 1 cap BID PO Last administered on 07/04/16 10:09; Admin Dose 1 CAP; Start 07/03/16 at 21:00 Bisacodyl (Dulcolax) 10 mg DAILY PRN PO CONSTIPATION; Start 07/03/16 at 13:00 Metoprolol Succinate (Toprol Xl) 50 mg BID PO Last administered on 07/04/16 10 :07; Admin Dose 50 MG; Start 07/03/16 at 21:00 Nifedipine (Procardia Xl) 60 mg BID PO Last administered on 07/04/16 10:08; Admin Dose 60 MG; Start 07/03/16 at 21:00 Isosorbide Dinitrate (Isordil) 20 mg TID PO Last administered on 07/04/16 12: 08; Admin Dose 20 MG; Start 07/04/16 at 13:00 Hydralazine HCl (Apresoline) 50 mg TID PO ; Start 07/04/16 at 13:00 FARHAN ELLINGTON MD Jul 04, 2016 12:54
[2016-07-04] MEDS ORDERED: POTASSIUM CHLORIDE 20 MEQ POWDER FOR ORAL SOLN PO ONE (13:00)
[2016-07-04] MEDS: HEPARIN 5,000 UNIT/0.5 ML VIAL SC SCH ×2 (13:00→20:47)
[2016-07-04] MEDS: SOD FERRIC GLUC COMPLX 125 MG in SOD CHLORIDE 0.9% 100 ML IVPB SCH (13:17)
--- NOTE | 2016-07-04 18:26 | RADRPT ---
Vent Rate: 78 bpm RR Interval: 0 msec ME Interval: 164 msec QRS Duration: 90 msec QT Interval: 406 msec QTC Interval: 462 msec P-R-T Ragland: 48 - 4 - 61 degrees Normal sinus rhythm Septal infarct , age undetermined Abnormal ECG Electronically Signed By: Micheal Fairchild [id number]
[2016-07-04] MEDS: ATORVASTATIN 10 MG TAB PO SCH (20:40)
[2016-07-05] VITALS (19 sets, daily range): BP systolic 131–210; BP diastolic 60–96; PULSE 72–103; RESP 18–20
[2016-07-05] MEDS: LEVOTHYROXINE 25 MCG TAB PO SCH (06:23)
[2016-07-05] MEDS: INSULIN ASPART [NOVOLOG] 3 ML PEN SC SCH ×4 (08:00→21:15)
[2016-07-05] MEDS: METOPROLOL (XL) 50 MG TAB PO SCH ×2 (08:45→21:09)
[2016-07-05] MEDS: ISOSORBIDE DINITRATE 20 MG TAB PO SCH ×3 (08:45→21:09)
[2016-07-05] MEDS: NIFEdipine (XL) 60 MG TAB PO SCH ×2 (08:45→21:09)
[2016-07-05] MEDS: LACTOBACILLUS RHAMNOSUS CAP PO SCH ×2 (08:47→21:08)
[2016-07-05] MEDS: FUROSEMIDE 40 MG INJ IV SCH (08:47)
[2016-07-05] MEDS: FAMOTIDINE 20 MG TAB PO SCH (08:47)
[2016-07-05] MEDS: DOCUSATE SODIUM 100 MG CAP PO SCH ×2 (08:47→21:08)
[2016-07-05] MEDS: CALCIUM ACETATE 667 MG CAP NGT SCH ×3 (08:47→17:20)
[2016-07-05] MEDS: HEPARIN 5,000 UNIT/0.5 ML VIAL SC SCH (08:57)
[2016-07-05 09:42] LABS: ADD SCAN DIFF NO
[2016-07-05 09:46] LABS: BASOPHILS % 0.6 % (0.0-2.0); EOSINOPHILS # 0.2 10^3/ul (0.0-0.5); EOSINOPHILS % 4.6 % (0.0-7.0); HEMATOCRIT 25.1 % (37.0-47.0); HEMOGLOBIN 8.2 g/dl (12.0-16.0); LYMPHOCYTES # 1.2 10^3/ul (0.8-2.9); MEAN CORPUSCULAR HEMOGLOBIN 30.7 pg (29.0-33.0); MEAN CORPUSCULAR HGB CONC 32.7 g/dl (32.0-37.0); MEAN PLATELET VOLUME 9.8 fl (7.4-10.4); MONOCYTE # 0.5 10^3/ul (0.3-0.9); MONOCYTES % 9.7 % (0.0-11.0); NEUTROPHIL # 3.3 10^3/ul (1.6-7.5); NEUTROPHILS % 61.7 % (39.0-77.0); PLATELET COUNT 287 10^3/UL (140-415); RED BLOOD COUNT 2.67 10^6/ul (4.20-5.40); RED CELL DISTRIBUTION WIDTH 15.6 % (11.5-14.5); WHITE BLOOD COUNT 5.3 10^3/ul (4.8-10.8)
[2016-07-05 10:00] LABS: CALCIUM 7.9 mg/dl (8.4-10.2); CREATININE 3.97 mg/dl (0.44-1.00); POTASSIUM 4.1 mmol/L (3.5-5.1)
--- NOTE | 2016-07-05 11:25 | PN ---
Date/Time of Note Date/Time of Note DATE: 07/05/16 TIME: 11:20 Assessment/Plan VTE Prophylaxis VTE Prophylaxis Intervention: LMWH Lines/Catheters IV [facility] Saline Lock Urinary Cath still in place: No Assessment/Plan Chief Complaint/Hosp Course S: 07/03- no distress. No chest pain dyspnea. Updated family. 07/04- no events 07/05-stable no distress. O: Vss; SR PE No pallor/ JVD Reg no m/r/g CTAB Bs + nt nd, no R/R/G Min edema A/P 1. Acute dd- CHF. Stable cont HD. ef=55%. 2. CKD w progression. Hep panel done, avoid PICC. HD avf access? Npo 3. Htn urgency. No ACS. DC home if ok w Nephro. Transfer to [facility]. 4. DM/metabolic syndrome. Hypoglycemia noted. Decreased insulin Lantus. 5. Anemia-joon, possibly also acd. occult/ iron ordered 6. Djd 7. Possible hypothyroidism. Problems: Exam/Review of Systems Vital Signs Vitals Vital Signs Date Time Temp Pulse Resp B/P Pulse Ox O2 Delivery O2 Flow Rate FiO2 07/05/16 08:19 72 07/05/16 04:21 98.6 20 149/68 97 07/02/16 08:55 Room Air Intake and Output 07/04/16 07/04/16 07/05/16 15:00 23:00 07:00 Intake Total 510 ml 250 ml Balance 510 ml 250 ml Results Result Diagram: 07/05/1690407/05/16904 Results 24 hrs Laboratory Tests Test 07/04/16 12:12 07/04/16 13:50 07/04/16 17:13 07/04/16 20:02 Bedside Glucose 147 165 263 H Stool Occult Blood NEGATIVE Test 07/05/16 02:42 07/05/16 08:07 07/05/16 09:05 Bedside Glucose 261 H 111 White Blood Count 5.3 # Red Blood Count 2.67 L Hemoglobin 8.2 L Hematocrit 25.1 L Mean Corpuscular Volume 94.0 Mean Corpuscular Hemoglobin 30.7 Mean Corpuscular Hemoglobin Concent 32.7 Red Cell Distribution Width 15.6 H Platelet Count 287 Mean Platelet Volume 9.8 Neutrophils % 61.7 Lymphocytes % 23.0 Monocytes % 9.7 Eosinophils % 4.6 Basophils % 0.6 Nucleated Red Blood Cells % 0.0 Neutrophils # 3.3 Lymphocytes # 1.2 Monocytes # 0.5 Eosinophils # 0.2 Basophils # 0.0 Nucleated Red Blood Cells # 0.0 Sodium Level 135 Potassium Level 4.1 Chloride Level 107 Carbon Dioxide Level 24 Anion Gap 8 Blood Urea Nitrogen 41 H Creatinine 3.97 H Glucose Level 112 Calcium Level 7.9 L Medications Medications Current Medications Furosemide (Lasix) 40 mg DAILY IV Last administered on 07/05/16 08:47; Admin Dose 40 MG; Start 07/02/16 at 09:00 Atorvastatin Calcium (Lipitor) 10 mg QHS PO Last administered on 07/04/16 20: 40; Admin Dose 10 MG; Start 07/02/16 at 21:00 Docusate Sodium (Colace) 100 mg BID PO Last administered on 07/05/16 08:47; Admin Dose 100 MG; Start 07/02/16 at 09:00 Famotidine (Pepcid) 20 mg DAILY PO Last administered on 07/05/16 08:47; Admin Dose 20 MG; Start 07/02/16 at 09:00 Ondansetron HCl (Zofran Inj) 4 mg Q6H PRN IV NAUSEA AND/OR VOMITING; Start 07/02 at 08:30 Miscellaneous Information 1 ea NOTE XX ; Start 07/02/16 at 09:30 Glucose (Glutose) 15 gm Q15M PRN PO DECREASED GLUCOSE; Start 07/02/16 at 09:30 Glucose (Glutose) 22.5 gm Q15M PRN PO DECREASED GLUCOSE; Start 07/02/16 at 09:30 Dextrose (D50w Syringe) 25 ml Q15M PRN IV DECREASED GLUCOSE; Start 07/02/16 at 09:30 Dextrose (D50w Syringe) 50 ml Q15M PRN IV DECREASED GLUCOSE; Start 07/02/16 at 09:30 Glucagon (Glucagen) 1 mg Q15M PRN IM DECREASED GLUCOSE; Start 07/02/16 at 09:30 Glucose 15 gm 15 gm Q15M PRN BUCCAL DECREASED GLUCOSE Last administered on 07/03 03:11; Admin Dose 15 GM; Start 07/02/16 at 09:30 Ferric Sodium Gluconate Complex/ Sodium Chloride (Ferrlecit/NS) 110 ml @ 110 mls/hr Q24H IVPB Last administered on 07/04/16 13:17; Admin Dose 110 MLS/HR; Start 07/02/16 at 13:30; Stop 07/06/16 at 14:29 Hydralazine HCl (Apresoline) 10 mg Q4H PRN IV SBP>170 Last administered on 07/03 12:22; Admin Dose 10 MG; Start 07/02/16 at 16:00 Acetaminophen (Tylenol Tab) 650 mg Q4H PRN PO PAIN AND OR ELEVATED TEMP; Start 07/02/16 at 21:00 Acetaminophen/ Hydrocodone Bitart ([place] (5/325)) 1 tab Q4H PRN PO PAIN LEVEL 1 -5; Start 07/02/16 at 21:00 Levothyroxine Sodium (Synthroid) 25 mcg DAILY@06 PO Last administered on 06:23; Admin Dose 25 MCG; Start 07/04/16 at 06:00 Lactobacillus Acidophilus/ Rhamnosus (Culturelle) 1 cap BID PO Last administered on 07/05/16 08:47; Admin Dose 1 CAP; Start 07/03/16 at 21:00 Bisacodyl (Dulcolax) 10 mg DAILY PRN PO CONSTIPATION; Start 07/03/16 at 13:00 Metoprolol Succinate (Toprol Xl) 50 mg BID PO Last administered on 07/04/16 20 :39; Admin Dose 50 MG; Start 07/03/16 at 21:00 Nifedipine (Procardia Xl) 60 mg BID PO Last administered on 07/04/16 20:40; Admin Dose 60 MG; Start 07/03/16 at 21:00 Isosorbide Dinitrate (Isordil) 20 mg TID PO Last administered on 07/04/16 20: 39; Admin Dose 20 MG; Start 07/04/16 at 13:00 Hydralazine HCl (Apresoline) 50 mg TID PO Last administered on 07/04/16 20:40 ; Admin Dose 50 MG; Start 07/04/16 at 13:00 Heparin Sodium (Porcine) (Heparin (5000 Units/0.5 ml)) 5,000 unit BID SC Last administered on 07/05/16 08:57; Admin Dose 5,000 UNIT; Start 07/04/16 at 13:00 FARHAN ELLINGTON MD Jul 05, 2016 11:25
[2016-07-05] MEDS: hydrALAzine 20 MG INJ IV PRN ×2 (12:03→16:14)
[2016-07-05] MEDS: SOD FERRIC GLUC COMPLX 125 MG in SOD CHLORIDE 0.9% 100 ML IVPB SCH (13:08)
--- NOTE | 2016-07-05 15:02 | CONS ---
Date/Time of Note Date/Time of Note DATE: 07/05/16 TIME: 14:59 Assessment/Plan Assessment/Plan Chief Complaint/Hosp Course IMPRESSION: 1. Diastolic, acute on chronic-EF 55% by echo this admit 2. Hypertension consistent with hypertension urgency/emergency currently downtrending on oral antihypertensives. 3. Shortness of breath likely secondary to #1. 4. Abnormal electrocardiogram, assess for acute coronary syndrome.-negative troponin x 3 5. Dizziness, rule out cardiac arrhythmia. 6. Renal failure. 7. Hyperkalemia-Now improved 8. Anemia. 9. Acidosis. Recc: -Tele -serial ecg -Continue procardia XL/toprol/hydralazine and follow BP after receiving with possible need for further uptitration -HD for volume removal Problems: Consultation Date/Type/Reason Admit Date/Time Jul 02, 2016 at 06:34 Initial Consult Date 07/02/2016 Type of Consultation: Cardiology Reason for Consultation CHF/HTN Referring Provider: JULIO DONOVAN MD Exam/Review of Systems Vital Signs Vitals Vital Signs Date Time Temp Pulse Resp B/P Pulse Ox O2 Delivery O2 Flow Rate FiO2 07/05/16 12:35 91 183/88 07/05/16 12:00 98.1 20 96 Room Air Intake and Output 07/04/16 07/04/16 07/05/16 15:00 23:00 07:00 Intake Total 510 ml 250 ml Balance 510 ml 250 ml Exam Review of Systems: CONSTITUTIONAL: No fevers, chills. PULMONARY: No sob CARDIOVASCULAR: No chest pain/palpitations GASTROINTESTINAL: No nausea/vomiting. GENITOURINARY: No hematuria/dysuria. MUSCULOSKELETAL: No myagias/arthalgias. PSYCHIATRIC: The patient denies depression. NEUROLOGIC: No weakness Constitutional: alert, oriented Psych: no complaints Head: normocephalic ENMT: mucosa pink and moist Neck: jvd (9 cm water), supple Respiratory: diminished breath sounds (at bases/B) Cardiovascular: regular rate and rhythm Gastrointestinal: non-tender, soft Musculoskeletal: muscle tone (normal) Extremities: pitting pedal edema (Bilateral) Neurological: other (No focal deficits) Results Result Diagram: 07/05/16 0905 07/05/16 0905 Results 24 hrs Laboratory Tests Test 07/04/16 17:13 07/04/16 20:02 07/05/16 02:42 07/05/16 08:07 Bedside Glucose 165 263 H 261 H 111 Test 07/05/16 09:05 07/05/16 11:45 White Blood Count 5.3 # Red Blood Count 2.67 L Hemoglobin 8.2 L Hematocrit 25.1 L Mean Corpuscular Volume 94.0 Mean Corpuscular Hemoglobin 30.7 Mean Corpuscular Hemoglobin Concent 32.7 Red Cell Distribution Width 15.6 H Platelet Count 287 Mean Platelet Volume 9.8 Neutrophils % 61.7 Lymphocytes % 23.0 Monocytes % 9.7 Eosinophils % 4.6 Basophils % 0.6 Nucleated Red Blood Cells % 0.0 Neutrophils # 3.3 Lymphocytes # 1.2 Monocytes # 0.5 Eosinophils # 0.2 Basophils # 0.0 Nucleated Red Blood Cells # 0.0 Sodium Level 135 Potassium Level 4.1 Chloride Level 107 Carbon Dioxide Level 24 Anion Gap 8 Blood Urea Nitrogen 41 H Creatinine 3.97 H Glucose Level 112 Calcium Level 7.9 L Bedside Glucose 138 Medications Medications Current Medications Atorvastatin Calcium (Lipitor) 10 mg QHS PO Last administered on 07/04/16 20: 40; Admin Dose 10 MG; Start 07/02/16 at 21:00 Docusate Sodium (Colace) 100 mg BID PO Last administered on 07/05/16 08:47; Admin Dose 100 MG; Start 07/02/16 at 09:00 Famotidine (Pepcid) 20 mg DAILY PO Last administered on 07/05/16 08:47; Admin Dose 20 MG; Start 07/02/16 at 09:00 Ondansetron HCl (Zofran Inj) 4 mg Q6H PRN IV NAUSEA AND/OR VOMITING; Start 07/02 at 08:30 Miscellaneous Information 1 ea NOTE XX ; Start 07/02/16 at 09:30 Glucose (Glutose) 15 gm Q15M PRN PO DECREASED GLUCOSE; Start 07/02/16 at 09:30 Glucose (Glutose) 22.5 gm Q15M PRN PO DECREASED GLUCOSE; Start 07/02/16 at 09:30 Dextrose (D50w Syringe) 25 ml Q15M PRN IV DECREASED GLUCOSE; Start 07/02/16 at 09:30 Dextrose (D50w Syringe) 50 ml Q15M PRN IV DECREASED GLUCOSE; Start 07/02/16 at 09:30 Glucagon (Glucagen) 1 mg Q15M PRN IM DECREASED GLUCOSE; Start 07/02/16 at 09:30 Glucose 15 gm 15 gm Q15M PRN BUCCAL DECREASED GLUCOSE Last administered on 07/03 03:11; Admin Dose 15 GM; Start 07/02/16 at 09:30 Ferric Sodium Gluconate Complex/ Sodium Chloride (Ferrlecit/NS) 110 ml @ 110 mls/hr Q24H IVPB Last administered on 07/05/16 13:08; Admin Dose 110 MLS/HR; Start 07/02/16 at 13:30; Stop 07/06/16 at 14:29 Hydralazine HCl (Apresoline) 10 mg Q4H PRN IV SBP>170 Last administered on 07/05 12:03; Admin Dose 10 MG; Start 07/02/16 at 16:00 Acetaminophen (Tylenol Tab) 650 mg Q4H PRN PO PAIN AND OR ELEVATED TEMP; Start 07/02/16 at 21:00 Acetaminophen/ Hydrocodone Bitart ([place] (5/325)) 1 tab Q4H PRN PO PAIN LEVEL 1 -5; Start 07/02/16 at 21:00 Levothyroxine Sodium (Synthroid) 25 mcg DAILY@06 PO Last administered on 06:23; Admin Dose 25 MCG; Start 07/04/16 at 06:00 Lactobacillus Acidophilus/ Rhamnosus (Culturelle) 1 cap BID PO Last administered on 07/05/16 08:47; Admin Dose 1 CAP; Start 07/03/16 at 21:00 Bisacodyl (Dulcolax) 10 mg DAILY PRN PO CONSTIPATION; Start 07/03/16 at 13:00 Metoprolol Succinate (Toprol Xl) 50 mg BID PO Last administered on 07/04/16 20 :39; Admin Dose 50 MG; Start 07/03/16 at 21:00 Nifedipine (Procardia Xl) 60 mg BID PO Last administered on 07/04/16 20:40; Admin Dose 60 MG; Start 07/03/16 at 21:00 Isosorbide Dinitrate (Isordil) 20 mg TID PO Last administered on 07/04/16 20: 39; Admin Dose 20 MG; Start 07/04/16 at 13:00 Hydralazine HCl (Apresoline) 50 mg TID PO Last administered on 07/04/16t 20:40 ; Admin Dose 50 MG; Start 07/04/16 at 13:00 Furosemide (Lasix) 40 mg DAILY PO ; Start 07/06/16 at 09:00 GILSON ARAYA Jul 05, 2016 15:02
--- NOTE | 2016-07-05 16:53 | CONS ---
Date/Time of Note Date/Time of Note DATE: 07/05/16 TIME: 16:51 Assessment/Plan Assessment/Plan Additional Assessment/Plan 55 yo Female with 1) S/p Initiation of HD, Sp HD Treatment #2 2) ESRD 3) Chronic HTN 4) Hyperkalemia Resolved 5) Hypokalemia 6) Anemia, Chronic 7) DM with Renal complication, CKD 8) Volume overload Dry UF today HD after PC placement tomorrow CM for HD Center placement to [facility] Possible plan for AVF this admission Consultation Date/Type/Reason Admit Date/Time Jul 02, 2016 at 06:34 Type of Consultation: Renal Referring Provider: JULIO DONOVAN MD 24 HR Interval Summary Free Text/Dictation Having US procedure. Planned for HD today, PC placement likelyl tomorrow Exam/Review of Systems Vital Signs Vitals Vital Signs Date Time Temp Pulse Resp B/P Pulse Ox O2 Delivery O2 Flow Rate FiO2 07/05/16 16:13 91 07/05/16 12:35 183/88 07/05/16 12:00 98.1 20 96 Room Air Intake and Output 07/04/16 07/04/16 07/05/16 15:00 23:00 07:00 Intake Total 510 ml 250 ml Balance 510 ml 250 ml Exam Constitutional: No distress ENMT: mucosa pink and moist Neck: No jvd Respiratory: crackles/rales, No diminished breath sounds, No labored breathing Cardiovascular: edema, regular rate and rhythm Gastrointestinal: non-tender, soft Extremities: pitting pedal edema Neurological: SOFTWARE [employer]ATION [employer]GER II-XII intact, nl mental status Results Result Diagram: 07/05/1690407/05/16904 Results 24 hrs Laboratory Tests Test 07/04/16 17:13 07/04/16 20:02 07/05/16 02:42 07/05/16 08:07 Bedside Glucose 165 263 H 261 H 111 Test 07/05/16 09:05 07/05/16 11:45 White Blood Count 5.3 # Red Blood Count 2.67 L Hemoglobin 8.2 L Hematocrit 25.1 L Mean Corpuscular Volume 94.0 Mean Corpuscular Hemoglobin 30.7 Mean Corpuscular Hemoglobin Concent 32.7 Red Cell Distribution Width 15.6 H Platelet Count 287 Mean Platelet Volume 9.8 Neutrophils % 61.7 Lymphocytes % 23.0 Monocytes % 9.7 Eosinophils % 4.6 Basophils % 0.6 Nucleated Red Blood Cells % 0.0 Neutrophils # 3.3 Lymphocytes # 1.2 Monocytes # 0.5 Eosinophils # 0.2 Basophils # 0.0 Nucleated Red Blood Cells # 0.0 Sodium Level 135 Potassium Level 4.1 Chloride Level 107 Carbon Dioxide Level 24 Anion Gap 8 Blood Urea Nitrogen 41 H Creatinine 3.97 H Glucose Level 112 Calcium Level 7.9 L Bedside Glucose 138 Medications Medications Current Medications Atorvastatin Calcium (Lipitor) 10 mg QHS PO Last administered on 07/04/16 20: 40; Admin Dose 10 MG; Start 07/02/16 at 21:00 Docusate Sodium (Colace) 100 mg BID PO Last administered on 07/05/16 08:47; Admin Dose 100 MG; Start 07/02/16 at 09:00 Famotidine (Pepcid) 20 mg DAILY PO Last administered on 07/05/16 08:47; Admin Dose 20 MG; Start 07/02/16 at 09:00 Ondansetron HCl (Zofran Inj) 4 mg Q6H PRN IV NAUSEA AND/OR VOMITING; Start 07/02 at 08:30 Miscellaneous Information 1 ea NOTE XX ; Start 07/02/16 at 09:30 Glucose (Glutose) 15 gm Q15M PRN PO DECREASED GLUCOSE; Start 07/02/16 at 09:30 Glucose (Glutose) 22.5 gm Q15M PRN PO DECREASED GLUCOSE; Start 07/02/16 at 09:30 Dextrose (D50w Syringe) 25 ml Q15M PRN IV DECREASED GLUCOSE; Start 07/02/16 at 09:30 Dextrose (D50w Syringe) 50 ml Q15M PRN IV DECREASED GLUCOSE; Start 07/02/16 at 09:30 Glucagon (Glucagen) 1 mg Q15M PRN IM DECREASED GLUCOSE; Start 07/02/16 at 09:30 Glucose 15 gm 15 gm Q15M PRN BUCCAL DECREASED GLUCOSE Last administered on 07/03 03:11; Admin Dose 15 GM; Start 07/02/16 at 09:30 Ferric Sodium Gluconate Complex/ Sodium Chloride (Ferrlecit/NS) 110 ml @ 110 mls/hr Q24H IVPB Last administered on 07/05/16 13:08; Admin Dose 110 MLS/HR; Start 07/02/16 at 13:30; Stop 07/06/16 at 14:29 Hydralazine HCl (Apresoline) 10 mg Q4H PRN IV SBP>170 Last administered on 07/05 16:14; Admin Dose 10 MG; Start 07/02/16 at 16:00 Acetaminophen (Tylenol Tab) 650 mg Q4H PRN PO PAIN AND OR ELEVATED TEMP; Start 07/02/16 at 21:00 Acetaminophen/ Hydrocodone Bitart ([place] (5/325)) 1 tab Q4H PRN PO PAIN LEVEL 1 -5; Start 07/02/16 at 21:00 Levothyroxine Sodium (Synthroid) 25 mcg DAILY@06 PO Last administered on 06:23; Admin Dose 25 MCG; Start 07/04/16 at 06:00 Lactobacillus Acidophilus/ Rhamnosus (Culturelle) 1 cap BID PO Last administered on 07/05/16 08:47; Admin Dose 1 CAP; Start 07/03/16 at 21:00 Bisacodyl (Dulcolax) 10 mg DAILY PRN PO CONSTIPATION; Start 07/03/16 at 13:00 Metoprolol Succinate (Toprol Xl) 50 mg BID PO Last administered on 07/04/16 20 :39; Admin Dose 50 MG; Start 07/03/16 at 21:00 Nifedipine (Procardia Xl) 60 mg BID PO Last administered on 07/04/16 20:40; Admin Dose 60 MG; Start 07/03/16 at 21:00 Isosorbide Dinitrate (Isordil) 20 mg TID PO Last administered on 07/04/16 20: 39; Admin Dose 20 MG; Start 07/04/16 at 13:00 Hydralazine HCl (Apresoline) 50 mg TID PO Last administered on 07/04/16 20:40 ; Admin Dose 50 MG; Start 07/04/16 at 13:00 Furosemide (Lasix) 40 mg DAILY PO ; Start 07/06/16 at 09:00 VIOLET MCFADDEN MD Jul 05, 2016 16:53
--- NOTE | 2016-07-05 17:33 | RADRPT ---
PROCEDURE: US Bilateral Upper Extremity Veins. CLINICAL INDICATION: Bilateral upper extremity swelling. Venous diameter for dialysis fistula plan yo. End-stage renal disease. TECHNIQUE: Multiple longitudinal and transverse images of the bilateral upper extremity venous ayanna e was obtained with fernando scale and color Doppler imaging. COMPARISON: None available FINDINGS: The subclavian veins, axillary, brachial, and basilic veins are patent bilaterally. There is normal flow with augmentation and compressibility throughout. There is no thrombus or occlusion. There is thrombosis of the right cephalic vein in the lower portion of the upper arm and in the elbow at the IV site. The cephalic veins are otherwise normal. Diameters are as follows: Right arm cephalic upper: 0.40 cm. Right arm cephalic mid: 0.38 cm. Right arm cephalic lower: 0.68 cm. Right forearm cephalic upper: 0.41 cm. Right forearm cephalic mid: 0.38 cm. Right forearm cephalic lower: 0.30 cm. Right arm basilic upper: 0.47 cm. Right arm basilic mid: 0.44 cm. Right arm basilic lower: 0.44 cm. Right forearm basilic upper: 0.28 cm. Right forearm basilic mid: 0.28 cm. Right forearm basilic lower: 0.18 cm. Left arm cephalic upper: 0.33 cm. Left arm cephalic mid: 0.38 cm. Left arm cephalic lower: 0.34 cm. Left forearm cephalic upper: 0.38 cm. Left forearm cephalic mid: 0.30 cm. Left forearm cephalic lower: 0.28 cm. Left arm basilic upper: 0.46 cm. Left arm basilic mid: 0.32 cm. Left arm basilic lower: 0.33 cm. Left forearm basilic upper: 0.14 cm. Left forearm basilic mid: 0.12 cm. Left forearm basilic lower: 0.11 cm. IMPRESSION: 1. Thrombosis of the right cephalic vein in the right upper arm inferiorly extending to the elbow r egion. 2. Otherwise patent bilateral upper extremity venous system. 3. The diameter of the vessels as indicated above. RPTAT: QQ .Brennon Jose MD, MD Date Time Electronically viewed and signed by .Brennon Jose MD, MD on 07/05/2016 17:33 .R/
--- NOTE | 2016-07-05 18:41 | RADRPT ---
PROCEDURE: US after extremity Arteries. CLINICAL INDICATION: End-stage renal disease TECHNIQUE: Multiple longitudinal and transverse images of the bilateral upper extremity arteries w ere obtained with fernando scale and color Doppler imaging. COMPARISON: No prior studies are available for comparison. FINDINGS: Peak systolic velocities are as follows: Location RightLeft waveforms [id number] cm/iaj194 cm/sec triphasic/triphasic Eqjocick053 cm/jer608 cm/sec triphasic/triphasic Rarfzkfa808 cm/rcz601 cm/sec triphasic/triphasic Bdxjih630 cm/oxj837 cm/sec triphasic/triphasic Dienu864 cm/bcx506 cm/sec triphasic/triphasic No segmental occlusion is demonstrated RPTAT:HJJR IMPRESSION: 1. Mild plaque formation without evidence for hemodynamically significant stenosis or occlusion of t he bilateral upper extremity arterial systems. Physician Saul Date Time Electronically viewed and signed by Physician Saul on 07/05/2016 18:41 JR/
[2016-07-05] MEDS: ATORVASTATIN 10 MG TAB PO SCH (21:08)
[2016-07-06] VITALS (8 sets, daily range): BP systolic 144–179; BP diastolic 58–75; PULSE 78–80; RESP 9–20
[2016-07-06 05:28] LABS: ADD SCAN DIFF NO
[2016-07-06 05:34] LABS: BASOPHILS % 0.7 % (0.0-2.0); EOSINOPHILS # 0.1 10^3/ul (0.0-0.5); EOSINOPHILS % 1.9 % (0.0-7.0); HEMATOCRIT 23.5 % (37.0-47.0); HEMOGLOBIN 7.7 g/dl (12.0-16.0); LYMPHOCYTES # 1.1 10^3/ul (0.8-2.9); LYMPHOCYTES % 18.9 % (15.0-51.0); MEAN CORPUSCULAR HEMOGLOBIN 30.9 pg (29.0-33.0); MEAN CORPUSCULAR HGB CONC 32.8 g/dl (32.0-37.0); MEAN CORPUSCULAR VOLUME 94.4 fl (82.0-101.0); MEAN PLATELET VOLUME 9.8 fl (7.4-10.4); MONOCYTE # 0.6 10^3/ul (0.3-0.9); MONOCYTES % 9.7 % (0.0-11.0); NEUTROPHIL # 3.9 10^3/ul (1.6-7.5); NEUTROPHILS % 68.3 % (39.0-77.0); PLATELET COUNT 238 10^3/UL (140-415); RED BLOOD COUNT 2.49 10^6/ul (4.20-5.40); RED CELL DISTRIBUTION WIDTH 15.3 % (11.5-14.5); WHITE BLOOD COUNT 5.7 10^3/ul (4.8-10.8)
[2016-07-06 05:40] LABS: INR 0.93; PROTIME 12.5 Sec (12.2-14.2)
[2016-07-06 05:45] LABS: POTASSIUM 3.7 mmol/L (3.5-5.1)
[2016-07-06 05:47] LABS: CREATININE 3.47 mg/dl (0.44-1.00)
[2016-07-06 05:48] LABS: CALCIUM 7.7 mg/dl (8.4-10.2)
[2016-07-06] MEDS: LEVOTHYROXINE 25 MCG TAB PO SCH (06:00)
[2016-07-06] MEDS: DOCUSATE SODIUM 100 MG CAP PO SCH ×2 (08:09→22:00)
[2016-07-06] MEDS: METOPROLOL (XL) 50 MG TAB PO SCH ×2 (08:09→22:01)
[2016-07-06] MEDS: LACTOBACILLUS RHAMNOSUS CAP PO SCH ×2 (08:09→22:00)
[2016-07-06] MEDS: NIFEdipine (XL) 60 MG TAB PO SCH ×2 (08:09→22:01)
[2016-07-06] MEDS: ISOSORBIDE DINITRATE 20 MG TAB PO SCH ×3 (08:10→22:02)
[2016-07-06] MEDS: FAMOTIDINE 20 MG TAB PO SCH (08:10)
[2016-07-06] MEDS: FUROSEMIDE 20 MG TAB PO SCH (08:14)
[2016-07-06] MEDS: CALCIUM ACETATE 667 MG CAP NGT SCH ×3 (08:14→17:28)
[2016-07-06] MEDS: INSULIN ASPART [NOVOLOG] 3 ML PEN SC SCH ×4 (08:14→22:10)
--- NOTE | 2016-07-06 12:45 | CONS ---
Date/Time of Note Date/Time of Note DATE: 07/06/16 TIME: 12:40 Assessment/Plan Assessment/Plan Chief Complaint/Hosp Course IMPRESSION: 1. Diastolic, acute on chronic-EF 55% by echo this admit 2. Hypertension consistent with hypertension urgency/emergency currently downtrending on oral antihypertensives. 3. Shortness of breath likely secondary to #1. 4. Abnormal electrocardiogram, assess for acute coronary syndrome.-negative troponin x 3 5. Dizziness, rule out cardiac arrhythmia. 6. Renal failure. 7. Hyperkalemia-Now improved 8. Anemia-receiving transfusion 9. Acidosis. Recc: -Tele -serial ecg -Continue procardia XL/toprol/ -uptitrate Hydralazine and follow BP closely -HD for volume removal Problems: Consultation Date/Type/Reason Admit Date/Time Jul 02, 2016 at 06:34 Initial Consult Date 07/02/2016 Type of Consultation: Cardiology Reason for Consultation CHF Referring Provider: JULIO DONOVAN MD Exam/Review of Systems Vital Signs Vitals Vital Signs Date Time Temp Pulse Resp B/P Pulse Ox O2 Delivery O2 Flow Rate FiO2 07/06/16 07:36 98.6 88 20 179/75 95 07/05/16 12:00 Room Air Intake and Output 07/05/16 07/05/16 07/06/16 15:00 23:00 07:00 Intake Total 810 ml Output Total 8500 ml Balance -7690 ml Exam Review of Systems: CONSTITUTIONAL: No fevers, chills. PULMONARY: No sob CARDIOVASCULAR: No chest pain/palpitations GASTROINTESTINAL: No nausea/vomiting. GENITOURINARY: No hematuria/dysuria. MUSCULOSKELETAL: No myagias/arthalgias. PSYCHIATRIC: The patient denies depression. NEUROLOGIC: No weakness Constitutional: alert, oriented Psych: no complaints Head: normocephalic ENMT: mucosa pink and moist Neck: jvd, supple Respiratory: diminished breath sounds Cardiovascular: regular rate and rhythm Gastrointestinal: non-tender, soft Musculoskeletal: muscle tone (none) Extremities: other (none) Results Result Diagram: 07/06/16 0507 07/06/16 0507 Results 24 hrs Laboratory Tests Test 07/05/16 17:07 07/05/16 21:07 07/06/16 05:07 07/06/16 08:07 Bedside Glucose 97 221 H 113 White Blood Count 5.7 Red Blood Count 2.49 L Hemoglobin 7.7 L Hematocrit 23.5 L Mean Corpuscular Volume 94.4 Mean Corpuscular Hemoglobin 30.9 Mean Corpuscular Hemoglobin Concent 32.8 Red Cell Distribution Width 15.3 H Platelet Count 238 Mean Platelet Volume 9.8 Neutrophils % 68.3 Lymphocytes % 18.9 Monocytes % 9.7 Eosinophils % 1.9 Basophils % 0.7 Nucleated Red Blood Cells % 0.0 Neutrophils # 3.9 Lymphocytes # 1.1 Monocytes # 0.6 Eosinophils # 0.1 Basophils # 0.0 Nucleated Red Blood Cells # 0.0 Prothrombin Time 12.5 Prothrombin Time Ratio 1.0 INR International Normalized Ratio 0.93 Sodium Level 139 Potassium Level 3.7 Chloride Level 106 Carbon Dioxide Level 26 Anion Gap 11 Blood Urea Nitrogen 34 H Creatinine 3.47 H Glucose Level 153 Calcium Level 7.7 L Test 07/06/16 12:00 Bedside Glucose 98 Medications Medications Current Medications Atorvastatin Calcium (Lipitor) 10 mg QHS PO Last administered on 07/05/16 21: 08; Admin Dose 10 MG; Start 07/02/16 at 21:00 Docusate Sodium (Colace) 100 mg BID PO Last administered on 07/06/16 08:09; Admin Dose 100 MG; Start 07/02/16 at 09:00 Famotidine (Pepcid) 20 mg DAILY PO Last administered on 07/06/16 08:10; Admin Dose 20 MG; Start 07/02/16 at 09:00 Ondansetron HCl (Zofran Inj) 4 mg Q6H PRN IV NAUSEA AND/OR VOMITING; Start 07/02 at 08:30 Miscellaneous Information 1 ea NOTE XX ; Start 07/02/16 at 09:30 Glucose (Glutose) 15 gm Q15M PRN PO DECREASED GLUCOSE; Start 07/02/16 at 09:30 Glucose (Glutose) 22.5 gm Q15M PRN PO DECREASED GLUCOSE; Start 07/02/16 at 09:30 Dextrose (D50w Syringe) 25 ml Q15M PRN IV DECREASED GLUCOSE; Start 07/02/16 at 09:30 Dextrose (D50w Syringe) 50 ml Q15M PRN IV DECREASED GLUCOSE; Start 07/02/16 at 09:30 Glucagon (Glucagen) 1 mg Q15M PRN IM DECREASED GLUCOSE; Start 07/02/16 at 09:30 Glucose 15 gm 15 gm Q15M PRN BUCCAL DECREASED GLUCOSE Last administered on 07/03 03:11; Admin Dose 15 GM; Start 07/02/16 at 09:30 Ferric Sodium Gluconate Complex/ Sodium Chloride (Ferrlecit/NS) 110 ml @ 110 mls/hr Q24H IVPB Last administered on 07/05/16 13:08; Admin Dose 110 MLS/HR; Start 07/02/16 at 13:30; Stop 07/06/16 at 14:29 Hydralazine HCl (Apresoline) 10 mg Q4H PRN IV SBP>170 Last administered on 07/05 16:14; Admin Dose 10 MG; Start 07/02/16 at 16:00 Acetaminophen (Tylenol Tab) 650 mg Q4H PRN PO PAIN AND OR ELEVATED TEMP; Start 07/02/16 at 21:00 Acetaminophen/ Hydrocodone Bitart ([place] (5/325)) 1 tab Q4H PRN PO PAIN LEVEL 1 -5; Start 07/02/16 at 21:00 Levothyroxine Sodium (Synthroid) 25 mcg DAILY@06 PO Last administered on 06:23; Admin Dose 25 MCG; Start 07/04/16 at 06:00 Lactobacillus Acidophilus/ Rhamnosus (Culturelle) 1 cap BID PO Last administered on 07/06/16 08:09; Admin Dose 1 CAP; Start 07/03/16 at 21:00 Bisacodyl (Dulcolax) 10 mg DAILY PRN PO CONSTIPATION; Start 07/03/16 at 13:00 Metoprolol Succinate (Toprol Xl) 50 mg BID PO Last administered on 07/06/16 08 :09; Admin Dose 50 MG; Start 07/03/16 at 21:00 Nifedipine (Procardia Xl) 60 mg BID PO Last administered on 07/06/16 08:09; Admin Dose 60 MG; Start 07/03/16 at 21:00 Isosorbide Dinitrate (Isordil) 20 mg TID PO Last administered on 07/06/16 08: 10; Admin Dose 20 MG; Start 07/04/16 at 13:00 Hydralazine HCl (Apresoline) 50 mg TID PO Last administered on 07/06/16 08:10 ; Admin Dose 50 MG; Start 07/04/16 at 13:00 Furosemide (Lasix) 40 mg DAILY PO Last administered on 07/06/16 08:14; Admin Dose 40 MG; Start 07/06/16 at 09:00 GILSON ARAYA Jul 06, 2016 12:45
[2016-07-06] MEDS: SOD FERRIC GLUC COMPLX 125 MG in SOD CHLORIDE 0.9% 100 ML IVPB SCH (13:00)
[2016-07-06] MEDS ORDERED: MIDAZOLAM 1 MG/ML 2 ML INJ ONE (13:48)
[2016-07-06] MEDS ORDERED: PROPOFOL 20 ML ONE (13:48)
[2016-07-06] MEDS ORDERED: FENTAnyl 50 MCG/ML VIAL ONE (13:48)
[2016-07-06] MEDS ORDERED: ROPIVACAINE 0.5 % 30 ML VIAL ONE (13:49)
[2016-07-06] MEDS ORDERED: HEPARIN 1000 UNITS/ML 10 ML INJ ONE (14:16)
[2016-07-06] MEDS ORDERED: GELATIN SIZE 100 SPONGE ONE (14:21)
[2016-07-06] MEDS ORDERED: LIDOCAINE 1% (STERILE-PAK) 30 ML INJ ONE (14:21)
[2016-07-06] MEDS ORDERED: THROMBIN 5000 UNIT VIAL ONE (14:21)
[2016-07-06] MEDS ORDERED: SODIUM CL BACTERIOSTATIC 30 ML INJ ONE (14:24)
--- NOTE | 2016-07-06 14:30 | HPN ---
Date/Time of Note Date/Time of Note DATE: 07/06/16 TIME: 14:30 Interval H&P Admission Note Pt. seen H&P reviewed: No system changes ANKIT DIAZ MD Jul 06, 2016 14:30
[2016-07-06] MEDS ORDERED: PHENYLephrine (100 MCG/ML) 5ML SYG ONE (14:52)
[2016-07-06] MEDS ORDERED: CEFAZOLIN 1 GM INJ ONE (14:52)
--- NOTE | 2016-07-06 15:13 | PN ---
Date/Time of Note Date/Time of Note DATE: 07/06/16 TIME: 15:11 Assessment/Plan VTE Prophylaxis VTE Prophylaxis Intervention: contraindicated (bleeding risk) Lines/Catheters IV Catheter Type (from Nrs): Saline Lock Urinary Cath still in place: No Assessment/Plan Chief Complaint/Hosp Course S: 07/03- no distress. No chest pain dyspnea. Updated family. 07/04- no events 07/05-stable no distress. 07/06- no events. for HD access O: Vss PE -deferred; in surgery A/P 1. Acute dd- CHF. Stable cont HD. ef=55%. 2. CKD w progression. Hep panel done, avoid PICC. HD access today. +/- avf? 3. Htn urgency. No ACS. DC home 07/07 if ok w Nephro. 4. DM/metabolic syndrome. Decreased insulin/ lantus. 5. Anemia-joon, possibly also acd. occult/ iron ordered 6. Djd 7. Possible hypothyroidism. Problems: Exam/Review of Systems Vital Signs Vitals Vital Signs Date Time Temp Pulse Resp B/P Pulse Ox O2 Delivery O2 Flow Rate FiO2 07/06/16 07:36 98.6 88 20 179/75 95 07/05/16 12:00 Room Air Intake and Output 07/05/16 07/05/16 07/06/16 15:00 23:00 07:00 Intake Total 810 ml Output Total 8500 ml Balance -7690 ml Results Result Diagram: 07/06/16 0507 07/06/16 0507 Results 24 hrs Laboratory Tests Test 07/05/16 17:07 07/05/16 21:07 07/06/16 05:07 07/06/16 08:07 Bedside Glucose 97 221 H 113 White Blood Count 5.7 Red Blood Count 2.49 L Hemoglobin 7.7 L Hematocrit 23.5 L Mean Corpuscular Volume 94.4 Mean Corpuscular Hemoglobin 30.9 Mean Corpuscular Hemoglobin Concent 32.8 Red Cell Distribution Width 15.3 H Platelet Count 238 Mean Platelet Volume 9.8 Neutrophils % 68.3 Lymphocytes % 18.9 Monocytes % 9.7 Eosinophils % 1.9 Basophils % 0.7 Nucleated Red Blood Cells % 0.0 Neutrophils # 3.9 Lymphocytes # 1.1 Monocytes # 0.6 Eosinophils # 0.1 Basophils # 0.0 Nucleated Red Blood Cells # 0.0 Prothrombin Time 12.5 Prothrombin Time Ratio 1.0 INR International Normalized Ratio 0.93 Sodium Level 139 Potassium Level 3.7 Chloride Level 106 Carbon Dioxide Level 26 Anion Gap 11 Blood Urea Nitrogen 34 H Creatinine 3.47 H Glucose Level 153 Calcium Level 7.7 L Test 07/06/16 12:00 Bedside Glucose 98 Medications Medications Current Medications Atorvastatin Calcium (Lipitor) 10 mg QHS PO Last administered on 07/05/16 21: 08; Admin Dose 10 MG; Start 07/02/16 at 21:00 Docusate Sodium (Colace) 100 mg BID PO Last administered on 07/06/16 08:09; Admin Dose 100 MG; Start 07/02/16 at 09:00 Famotidine (Pepcid) 20 mg DAILY PO Last administered on 07/06/16 08:10; Admin Dose 20 MG; Start 07/02/16 at 09:00 Ondansetron HCl (Zofran Inj) 4 mg Q6H PRN IV NAUSEA AND/OR VOMITING; Start 07/02 at 08:30 Miscellaneous Information 1 ea NOTE XX ; Start 07/02/16 at 09:30 Glucose (Glutose) 15 gm Q15M PRN PO DECREASED GLUCOSE; Start 07/02/16 at 09:30 Glucose (Glutose) 22.5 gm Q15M PRN PO DECREASED GLUCOSE; Start 07/02/16 at 09:30 Dextrose (D50w Syringe) 25 ml Q15M PRN IV DECREASED GLUCOSE; Start 07/02/16 at 09:30 Dextrose (D50w Syringe) 50 ml Q15M PRN IV DECREASED GLUCOSE; Start 07/02/16 at 09:30 Glucagon (Glucagen) 1 mg Q15M PRN IM DECREASED GLUCOSE; Start 07/02/16 at 09:30 Glucose (Glutose) 15 gm Q15M PRN BUCCAL DECREASED GLUCOSE Last administered on 07/03/16 03:11; Admin Dose 15 GM; Start 07/02/16 at 09:30 Hydralazine HCl (Apresoline) 10 mg Q4H PRN IV SBP>170 Last administered on 07/05 16:14; Admin Dose 10 MG; Start 07/02/16 at 16:00 Acetaminophen (Tylenol Tab) 650 mg Q4H PRN PO PAIN AND OR ELEVATED TEMP; Start 07/02/16 at 21:00 Acetaminophen/ Hydrocodone Bitart ([place] (5/325)) 1 tab Q4H PRN PO PAIN LEVEL 1 -5; Start 07/02/16 at 21:00 Levothyroxine Sodium (Synthroid) 25 mcg DAILY@06 PO Last administered on 06:23; Admin Dose 25 MCG; Start 07/04/16 at 06:00 Lactobacillus Acidophilus/ Rhamnosus (Culturelle) 1 cap BID PO Last administered on 07/06/16 08:09; Admin Dose 1 CAP; Start 07/03/16 at 21:00 Bisacodyl (Dulcolax) 10 mg DAILY PRN PO CONSTIPATION; Start 07/03/16 at 13:00 Metoprolol Succinate (Toprol Xl) 50 mg BID PO Last administered on 07/06/16 08 :09; Admin Dose 50 MG; Start 07/03/16 at 21:00 Nifedipine (Procardia Xl) 60 mg BID PO Last administered on 07/06/16 08:09; Admin Dose 60 MG; Start 07/03/16 at 21:00 Isosorbide Dinitrate (Isordil) 20 mg TID PO Last administered on 07/06/16 12: 49; Admin Dose 20 MG; Start 07/04/16 at 13:00 Furosemide (Lasix) 40 mg DAILY PO Last administered on 07/06/16 08:14; Admin Dose 40 MG; Start 07/06/16 at 09:00 Hydralazine HCl (Apresoline) 75 mg TID PO Last administered on 07/06/16 13:00 ; Admin Dose 75 MG; Start 07/06/16 at 13:00 FARHAN ELLINGTON MD Jul 06, 2016 15:13
[2016-07-06] MEDS ORDERED: hydrALAzine 20 MG INJ ONE (15:21)
[2016-07-06] MEDS ORDERED: EPHEDrine SULFATE 50 MG/5 ML SYG IV PRN (15:30)
[2016-07-06] MEDS ORDERED: ONDANSETRON 4 MG INJ IV PRN (15:30)
[2016-07-06] MEDS ORDERED: hydrALAzine 20 MG INJ IV PRN (15:30)
[2016-07-06] MEDS ORDERED: HYDROmorphONE (0.2 MG/ML) 10ML SYG IV PRN ×3 (15:30)
[2016-07-06] MEDS ORDERED: LABETALOL HCL 20MG INJ IV PRN (15:30)
[2016-07-06] MEDS ORDERED: DIPHENHYDRAMINE 50 MG INJ IV PRN (15:30)
[2016-07-06] MEDS ORDERED: morphine (1 MG/ML) 10ML SYRINGE IV PRN ×3 (15:30)
[2016-07-06] MEDS ORDERED: MEPERIDINE 25 MG INJ IV PRN (15:30)
[2016-07-06] MEDS ORDERED: METOCLOPRAMIDE 10 MG INJ ONE (15:48)
[2016-07-06] MEDS ORDERED: DEXAMETHASONE 4 MG/ML 1 ML INJ ONE (15:48)
[2016-07-06] MEDS ORDERED: ONDANSETRON 4 MG INJ ONE (15:48)
--- NOTE | 2016-07-06 16:11 | OPR ---
Date/Time of Note Date/Time of Note DATE: 07/06/16 TIME: 16:09 Operative Report Free Text/Dictation DATE OF OPERATION: 07/06/2016 SURGEON: Doug Diaz MD PREOPERATIVE DIAGNOSIS: ESRD POSTOPERATIVE DIAGNOSIS: ESRD PROCEDURE: Creation of a left arm brachiocephalic arteriovenous fistula. ANESTHESIA: Regional Block and Local COMPLICATIONS: None. ESTIMATED BLOOD LOSS: Minimal. TRANSFUSIONS: None SPECIMEN: None. INDICATIONS: This is a 55-year-old diabetic type II female with a history of CKD that has progressed to end-stage renal disease . The risks and benefits of the procedure were discussed with the patient and not limited to , [place], pneumonia, stroke, infection, thrombosis of graft and arteriovenous fistula, nerve injury, limb loss, revisions of AVF, steal and she elected to undergo surgical intervention. DESCRIPTION: The patient was placed in supine position on the operating room table. The arms were placed at 80 degrees. The normal bony prominences were padded. The anesthesia team had placed the appropriate lines and anesthesia was induced. Time out performed and the appropriate site was marked and confirmed. The patient's upper extremity prepped and draped in the usual standard sterile fashion. Preoperative antibiotics were administered prior to the skin incision since the patient already had been on antibiotics. A 6 cm transverse skin incision was then performed below the antecubital fossa. The cephalic vein was identified and dissected for a segment of nearly 5 cm. Dissection was then carried as distally as possible through that incision. Attention was then directed to the brachial artery. The tendinous aponeurosis of the biceps muscle was then incised. Location of the brachial artery was then identified by palpation. The soft tissue over the brachial artery was then incised, and the brachial artery was then confirmed. The patient was given 2500 units of heparin intravenously. The cephalic vein was then ligated at its most distal end. Yasargil clamps were then applied on the brachial artery, and a 6 mm incision in the anterior wall of the brachial artery was then performed. The cephalic vein was then gently curved and allowed to lay over the arteriotomy. The end of the vein was spatulated to match the side of the arteriotomy. The anastomosis was then performed using a running 6-0 Prolene suture. At the completion of the suture line the brachial artery was forward-flushed and then allowed to backbleed. The cephalic vein was also allowed to backbleed. The anastomosis was irrigated with heparinized saline solution. The suture was then tied and the suture line evaluated for hemostasis, which was adequate. There was evidence of excellent thrill in the cephalic vein. There was a strong pulse palpable in the brachial, radial, and ulnar arteries at the wrist. There was no evidence of any kinks. The subcutaneous tissue was then closed with a 3-0 Vicryl running suture and the skin closed with penny. There was evidence of excellent thrill in the cephalic vein after the wound closure. The patient tolerated the procedure well, was taken to the postanesthesia care unit in stable condition. All instruments, catheters, sponge, and needles were corrected x2. DOUG DIAZ MD Jul 06, 2016 16:11
--- NOTE | 2016-07-06 19:40 | CONS ---
Date/Time of Note Date/Time of Note DATE: 07/06/16 TIME: 19:37 Assessment/Plan Assessment/Plan Chief Complaint/Hosp Course Pt to have AVF placed & Permacath in am Problems: Cont'd Hospitalization Reason: July ddc after HD in AM,, if arrangements for outpyt HD can be made Consultation Date/Type/Reason Admit Date/Time Jul 02, 2016 at 06:34 Initial Consult Date Type of Consultation: renal Referring Provider: JULIO DONOVAN MD 24 HR Interval Summary Free Text/Dictation Pt is in good spirits Constitutional: no complaints Exam/Review of Systems Vital Signs Vitals Vital Signs Date Time Temp Pulse Resp B/P Pulse Ox O2 Delivery O2 Flow Rate FiO2 07/06/16 16:41 80 10 150/61 98 Room Air 2.0 07/06/16 16:10 98.7 Intake and Output 07/05/16 07/05/16 07/06/16 15:00 23:00 07:00 Intake Total 810 ml Output Total 8500 ml Balance -7690 ml Exam Constitutional: alert, oriented, well developed Psych: nl mood/affect, no complaints Head: atraumatic, normocephalic Eyes: EOMI, PERRL, nl conjunctiva, nl lids, nl sclera ENMT: nl external ears & nose, nl lips & teeth, nl nasal mucosa & septum Neck: non-tender, supple Respiratory: clear to auscultation, normal air movement, other (occ rhonchi) Cardiovascular: nl pulses, regular rate and rhythm Gastrointestinal: nl liver, spleen, non-tender, soft Musculoskeletal: nl extremities to inspection, nl gait and stance Extremities: normal pulses Neurological: DIETARY MANAGER II-XII intact, nl mental status, nl speech, nl strength Skin: nl turgor, No rash or lesions Lymph: nl lymph nodes Additional Comments Hbg has dropped Results Result Diagram: 07/06/16 0507 07/06/16 0507 Results 24 hrs Laboratory Tests Test 07/05/16 21:07 07/06/16 05:07 07/06/16 08:07 07/06/16 12:00 Bedside Glucose 221 H 113 98 White Blood Count 5.7 Red Blood Count 2.49 L Hemoglobin 7.7 L Hematocrit 23.5 L Mean Corpuscular Volume 94.4 Mean Corpuscular Hemoglobin 30.9 Mean Corpuscular Hemoglobin Concent 32.8 Red Cell Distribution Width 15.3 H Platelet Count 238 Mean Platelet Volume 9.8 Neutrophils % 68.3 Lymphocytes % 18.9 Monocytes % 9.7 Eosinophils % 1.9 Basophils % 0.7 Nucleated Red Blood Cells % 0.0 Neutrophils # 3.9 Lymphocytes # 1.1 Monocytes # 0.6 Eosinophils # 0.1 Basophils # 0.0 Nucleated Red Blood Cells # 0.0 Prothrombin Time 12.5 Prothrombin Time Ratio 1.0 INR International Normalized Ratio 0.93 Sodium Level 139 Potassium Level 3.7 Chloride Level 106 Carbon Dioxide Level 26 Anion Gap 11 Blood Urea Nitrogen 34 H Creatinine 3.47 H Glucose Level 153 Calcium Level 7.7 L Test 07/06/16 16:10 07/06/16 17:23 Bedside Glucose 101 98 Medications Medications Current Medications Atorvastatin Calcium (Lipitor) 10 mg QHS PO Last administered on 07/05/16 21: 08; Admin Dose 10 MG; Start 07/02/16 at 21:00 Docusate Sodium (Colace) 100 mg BID PO Last administered on 07/06/16 08:09; Admin Dose 100 MG; Start 07/02/16 at 09:00 Famotidine (Pepcid) 20 mg DAILY PO Last administered on 07/06/16 08:10; Admin Dose 20 MG; Start 07/02/16 at 09:00 Ondansetron HCl (Zofran Inj) 4 mg Q6H PRN IV NAUSEA AND/OR VOMITING; Start 07/02 at 08:30 Miscellaneous Information 1 ea NOTE XX ; Start 07/02/16 at 09:30 Glucose (Glutose) 15 gm Q15M PRN PO DECREASED GLUCOSE; Start 07/02/16 at 09:30 Glucose (Glutose) 22.5 gm Q15M PRN PO DECREASED GLUCOSE; Start 07/02/16 at 09:30 Dextrose (D50w Syringe) 25 ml Q15M PRN IV DECREASED GLUCOSE; Start 07/02/16 at 09:30 Dextrose (D50w Syringe) 50 ml Q15M PRN IV DECREASED GLUCOSE; Start 07/02/16 at 09:30 Glucagon (Glucagen) 1 mg Q15M PRN IM DECREASED GLUCOSE; Start 07/02/16 at 09:30 Glucose (Glutose) 15 gm Q15M PRN BUCCAL DECREASED GLUCOSE Last administered on 07/03/16 03:11; Admin Dose 15 GM; Start 07/02/16 at 09:30 Hydralazine HCl (Apresoline) 10 mg Q4H PRN IV SBP>170 Last administered on 07/05 16:14; Admin Dose 10 MG; Start 07/02/16 at 16:00 Acetaminophen (Tylenol Tab) 650 mg Q4H PRN PO PAIN AND OR ELEVATED TEMP; Start 07/02/16 at 21:00 Acetaminophen/ Hydrocodone Bitart ([place] (5/325)) 1 tab Q4H PRN PO PAIN LEVEL 1 -5; Start 07/02/16 at 21:00 Levothyroxine Sodium (Synthroid) 25 mcg DAILY@06 PO Last administered on 06:23; Admin Dose 25 MCG; Start 07/04/16 at 06:00 Lactobacillus Acidophilus/ Rhamnosus (Culturelle) 1 cap BID PO Last administered on 07/06/16 08:09; Admin Dose 1 CAP; Start 07/03/16 at 21:00 Bisacodyl (Dulcolax) 10 mg DAILY PRN PO CONSTIPATION; Start 07/03/16 at 13:00 Metoprolol Succinate (Toprol Xl) 50 mg BID PO Last administered on 07/06/16 08 :09; Admin Dose 50 MG; Start 07/03/16 at 21:00 Nifedipine (Procardia Xl) 60 mg BID PO Last administered on 07/06/16 08:09; Admin Dose 60 MG; Start 07/03/16 at 21:00 Isosorbide Dinitrate (Isordil) 20 mg TID PO Last administered on 07/06/16 12: 49; Admin Dose 20 MG; Start 07/04/16 at 13:00 Furosemide (Lasix) 40 mg DAILY PO Last administered on 07/06/16 08:14; Admin Dose 40 MG; Start 07/06/16 at 09:00 Hydralazine HCl (Apresoline) 75 mg TID PO Last administered on 07/06/16 13:00 ; Admin Dose 75 MG; Start 07/06/16 at 13:00 CHARLIE GORMAN MD Jul 06, 2016 19:40
[2016-07-06] MEDS: ATORVASTATIN 10 MG TAB PO SCH (22:00)
[2016-07-07] VITALS (8 sets, daily range): BP systolic 150–188; BP diastolic 73–85; PULSE 77–85; RESP 18
[2016-07-07] MEDS: LEVOTHYROXINE 25 MCG TAB PO SCH (06:24)
[2016-07-07] MEDS: CALCIUM ACETATE 667 MG CAP NGT SCH ×3 (08:15→18:00)
[2016-07-07] MEDS ORDERED: LIDOCAINE 1% (MDV) 20 ML INJ ONE (10:34)
[2016-07-07] MEDS ORDERED: CEFAZOLIN 1 GM/50 ML (PMX) 50 ML IVPB ONE (10:34)
[2016-07-07] MEDS ORDERED: DIPHENHYDRAMINE 50 MG INJ ONE (10:35)
[2016-07-07] MEDS ORDERED: MIDAZOLAM 1 MG/ML 2 ML INJ ONE (10:35)
[2016-07-07] MEDS ORDERED: HEPARIN 1000 UNITS/ML 10 ML INJ ONE (10:35)
[2016-07-07] MEDS ORDERED: FENTAnyl 50 MCG/ML VIAL ONE (10:35)
[2016-07-07] MEDS: NIFEdipine (XL) 60 MG TAB PO SCH (10:42)
[2016-07-07] MEDS: METOPROLOL (XL) 50 MG TAB PO SCH (10:42)
[2016-07-07] MEDS: LACTOBACILLUS RHAMNOSUS CAP PO SCH (10:43)
[2016-07-07] MEDS: FAMOTIDINE 20 MG TAB PO SCH (10:43)
[2016-07-07] MEDS: DOCUSATE SODIUM 100 MG CAP PO SCH (10:43)
[2016-07-07] MEDS: ISOSORBIDE DINITRATE 20 MG TAB PO SCH ×2 (10:43→14:43)
[2016-07-07] MEDS: FUROSEMIDE 20 MG TAB PO SCH (10:43)
[2016-07-07] MEDS: INSULIN ASPART [NOVOLOG] 3 ML PEN SC SCH ×3 (10:49→18:00)
--- NOTE | 2016-07-07 11:18 | PN ---
Date/Time of Note Date/Time of Note DATE: 07/07/16 TIME: 11:16 Assessment/Plan VTE Prophylaxis VTE Prophylaxis Intervention: contraindicated (bleeding risk) Lines/Catheters IV Catheter Type (from Nrsg): Saline Lock Urinary Cath still in place: No Assessment/Plan Chief Complaint/Hosp Course S: 07/03- no distress. No chest pain dyspnea. Updated family. 07/04- no events 07/05-stable no distress. 07/06- no events. for HD access 07/07-stable good spirits. sp AV fistula. For permacath and dialysis today. O: Vss; BP a little high PE No pallor JVD S1-S2 regular, no murmur rub gallop Clear bilaterally Bs positive, nontender, nondistended, no MRG Mild edema. Lt AVf clean dry and intact A/P 1. Acute dd- CHF. Stable cont HD. ef=55%. dc home later today. 2. CKD w progression. Hep panel done, avoid PICC. sp avf. permacath & HD today. 3. Htn urgency. No ACS. DC home 07/07 if ok w Nephro. 4. DM/metabolic syndrome. Decreased insulin/ lantus. 5. Anemia-joon, possibly also acd. occult/ iron ordered 6. Djd 7. Possible hypothyroidism. Problems: Exam/Review of Systems Vital Signs Vitals Vital Signs Date Time Temp Pulse Resp B/P Pulse Ox O2 Delivery O2 Flow Rate FiO2 07/07/16 07:26 98.6 88 18 176/79 93 07/06/16 16:41 Room Air 2.0 Intake and Output 07/06/16 07/06/16 07/07/16 15:00 23:00 07:00 Intake Total 210 ml 200 ml Output Total 405 ml Balance -195 ml 200 ml Results Result Diagram: 07/06/16 0507 07/06/16 0507 Results 24 hrs Laboratory Tests Test 07/06/16 12:00 07/06/16 16:10 07/06/16 17:23 07/06/16 21:57 Bedside Glucose 98 101 98 277 H Test 07/07/16 10:49 Bedside Glucose 135 Medications Medications Current Medications Atorvastatin Calcium (Lipitor) 10 mg QHS PO Last administered on 07/06/16t 22: 00; Admin Dose 10 MG; Start 07/02/16 at 21:00 Docusate Sodium (Colace) 100 mg BID PO Last administered on 07/07/16 10:43; Admin Dose 100 MG; Start 07/02/16 at 09:00 Famotidine (Pepcid) 20 mg DAILY PO Last administered on 07/07/16 10:43; Admin Dose 20 MG; Start 07/02/16 at 09:00 Ondansetron HCl (Zofran Inj) 4 mg Q6H PRN IV NAUSEA AND/OR VOMITING; Start 07/02 at 08:30 Miscellaneous Information 1 ea NOTE XX ; Start 07/02/16 at 09:30 Glucose (Glutose) 15 gm Q15M PRN PO DECREASED GLUCOSE; Start 07/02/16 at 09:30 Glucose (Glutose) 22.5 gm Q15M PRN PO DECREASED GLUCOSE; Start 07/02/16 at 09:30 Dextrose (D50w Syringe) 25 ml Q15M PRN IV DECREASED GLUCOSE; Start 07/02/16 at 09:30 Dextrose (D50w Syringe) 50 ml Q15M PRN IV DECREASED GLUCOSE; Start 07/02/16 at 09:30 Glucagon (Glucagen) 1 mg Q15M PRN IM DECREASED GLUCOSE; Start 07/02/16 at 09:30 Glucose (Glutose) 15 gm Q15M PRN BUCCAL DECREASED GLUCOSE Last administered on 07/03/16 03:11; Admin Dose 15 GM; Start 07/02/16 at 09:30 Hydralazine HCl (Apresoline) 10 mg Q4H PRN IV SBP>170 Last administered on 07/05 16:14; Admin Dose 10 MG; Start 07/02/16 at 16:00 Acetaminophen (Tylenol Tab) 650 mg Q4H PRN PO PAIN AND OR ELEVATED TEMP; Start 07/02/16 at 21:00 Acetaminophen/ Hydrocodone Bitart ([place] (5/325)) 1 tab Q4H PRN PO PAIN LEVEL 1 -5; Start 07/02/16 at 21:00 Levothyroxine Sodium (Synthroid) 25 mcg DAILY@06 PO Last administered on 06:24; Admin Dose 25 MCG; Start 07/04/16 at 06:00 Lactobacillus Acidophilus/ Rhamnosus (Culturelle) 1 cap BID PO Last administered on 07/07/16 10:43; Admin Dose 1 CAP; Start 07/03/16 at 21:00 Bisacodyl (Dulcolax) 10 mg DAILY PRN PO CONSTIPATION; Start 07/03/16 at 13:00 Metoprolol Succinate (Toprol Xl) 50 mg BID PO Last administered on 07/07/16 10 :42; Admin Dose 50 MG; Start 07/03/16 at 21:00 Nifedipine (Procardia Xl) 60 mg BID PO Last administered on 07/07/16 10:42; Admin Dose 60 MG; Start 07/03/16 at 21:00 Isosorbide Dinitrate (Isordil) 20 mg TID PO Last administered on 07/07/16 10: 43; Admin Dose 20 MG; Start 07/04/16 at 13:00 Furosemide (Lasix) 40 mg DAILY PO Last administered on 07/07/16 10:43; Admin Dose 40 MG; Start 07/06/16 at 09:00 Hydralazine HCl (Apresoline) 75 mg TID PO Last administered on 07/07/16 10:43 ; Admin Dose 75 MG; Start 07/06/16 at 13:00 FARHAN ELLINGTON MD Jul 07, 2016 11:18
--- NOTE | 2016-07-07 11:30 | PDOCDIS ---
Discharge Instructions DIAGNOSIS Discharge Diagnosis: renal failure CONDITION Patient Condition: Stable HOME CARE INSTRUCTIONS: Special Diet: CARB CONTROLLED ACTIVITY: Activity Restrictions: Slowly Increase Activity (no driving for now) Do not Drive FOLLOW UP/APPOINTMENTS Appointments PCP 1wk Dr Sears 1-2wk Dr Rocael Donovan 1-2wks Dialysis as instructed. FARHAN ELLINGTON MD Jul 07, 2016 11:30
--- NOTE | 2016-07-07 11:32 | PN ---
Date/Time of Note Date/Time of Note DATE: 07/07/16 TIME: 11:30 Assessment/Plan Lines/Catheters IV Catheter Type (from Nrs): Saline Lock Neal in Place (from Nrs): No Assessment/Plan Chief Complaint/Hosp Course -ESRD: S/P LUE brachiochephalic fistula creation -Discussed findings, plan and management with the patient and she understands with certified production control coordinator -Scheduled for Perm Catheter Problems: Subjective 24 Hr Interval Summary no new vascular events overnight Exam/Review of Systems Vital Signs Vitals Vital Signs Date Time Temp Pulse Resp B/P Pulse Ox O2 Delivery O2 Flow Rate FiO2 07/07/16 07:26 98.6 88 18 176/79 93 07/06/16 16:41 Room Air 2.0 Intake and Output 07/06/16 07/06/16 07/07/16 15:00 23:00 07:00 Intake Total 210 ml 200 ml Output Total 405 ml Balance -195 ml 200 ml Exam Free Text/Dictation A&Ox3 CTAB S1S2 present Soft NTND BS+ LUE: palpable brachial pulse, cap refill 2 seconds, motor/sensory intact, incision w dressing clean and dry Results Result Diagram: 07/06/16 0507 07/06/16 0507 ANKIT DIAZ MD Jul 07, 2016 11:32
[2016-07-07] MEDS ORDERED: CHOL100062 PO (11:33)
[2016-07-07] MEDS ORDERED: HYDR-3671 PO (11:33)
[2016-07-07] MEDS ORDERED: METO50TA16 PO (11:33)
[2016-07-07] MEDS ORDERED: ISOS20TA19 PO (11:33)
[2016-07-07] MEDS ORDERED: CALC667C NGT (11:33)
[2016-07-07] MEDS ORDERED: HYDR-3498 PO (11:33)
[2016-07-07] MEDS ORDERED: FAMO20TA18 PO (11:33)
[2016-07-07] MEDS ORDERED: LEVO25TA53 PO (11:33)
[2016-07-07] MEDS ORDERED: LAS20 PO (11:33)
[2016-07-07] MEDS ORDERED: NIFE60TA7 PO (11:33)
[2016-07-07] MEDS ORDERED: DOCU-216 PO (11:33)
[2016-07-07] MEDS ORDERED: LACT1CAP57 PO (11:33)
--- NOTE | 2016-07-07 12:19 | DS ---
DATE OF ADMISSION: 07/02/2016 DATE OF DISCHARGE: 07/07/2016 PRIMARY CARE PHYSICIAN: Unknown. BUFFING WHEEL INSPECTOR: Dr. Sears/Dr. Diaz, Dr. Almeida, Dr. Donovan. DIAGNOSIS ON ADMISSION: Congestive heart failure. DIAGNOSES ON DISCHARGE: 1. Congestive heart failure, diastolic. 2. Acute renal failure. 3. Hypertensive urgency. 4. Diabetes. 5. Anemia. 6. Hypothyroidism, treated started. 7. Right cephalic vein thrombosis. 8. Vitamin D deficiency. HOSPITAL COURSE: This is a 55-year-old female with chronic diabetes, hypertension, probable hyperte nsive heart disease and admitted with hypertensive urgency, shortness of breath, found to have fluid overload. Her creatinine had progressed to a point where dialysis was recommended. The patient ag minda and was started on dialysis via temporary access. She has been stabilized but unfortunately ki dneys have not recurred. She will need long-term dialysis. This was discussed with the patient and family. The patient agreed for long-term dialysis. The patient underwent AV fistula placement yes terday. She is stable. She will undergo PermCath placement today. She will have dialysis after Pe rmCath placement and if stable, home later today. The dialysis will help her blood pressure and nadya l be ideally continued as an outpatient. I think she will agree to the plan of care. For anemia, patient was given IV iron. DISCHARGE PLAN: Home. Follow up with primary in 1 week, Dr. Donovan 1 week, Dr. Diaz in 2 weeks. DIET: 1800 ADA. ACTIVITY: As tolerated. No driving if dizzy. DURABLE MEDICAL EQUIPMENT: None. CODE STATUS: FULL. CONDITION: Stable. BARRIERS TO DISCHARGE: None. PENDING TESTS: None. FUNCTIONAL STATUS: The patient is awake, alert, agrees with the plan of care. GENERAL MANAGER ROAD PRODUCTION: Myself and family. REASON FOR ADMISSION: Shortness of breath. ALLERGIES: NO KNOWN DRUG ALLERGIES. ECHOCARDIOGRAM: A 2D echo noted to have an EF of 55% with diastolic dysfunction. OPERATIONS: Right femoral hemodialysis catheter placement, left arm radiocephalic AV fistula creati on. PermCath placement by radiology. IMAGING STUDIES: 1. Arterial ultrasound bilaterally shows mild plaque formation without stenosis or occlusion of bernard ateral upper extremities. Venous evaluation: There is thrombosis of the right cephalic vein and th e upper right arm inferiorly extending to the elbow region, otherwise patent system. 2. Renal ultrasound shows unremarkable findings. 3. Chest x-ray: Cardiomegaly, venous congestion and small bilateral effusions. LABORATORY DATA: MRSA nares negative. White cell count of 5, hemoglobin and hematocrit of 7 and 23 , MCV 94, platelets of 238. INR of 1. Occult blood negative. Hepatitis panel negative. Sodium 13 9, potassium 3.7, chloride 106, bicarbonate 26, BUN of 34, creatinine 3.4, glucose of 150, calcium 7 .7. LFTs okay. Protein of 5, albumin low at 2.4. Vitamin D of 10. TSH of 7.1, free T4 of 1.1, T3 of 0.97. Triglycerides 55, total of 161, LDL of 76, HDL of 74. Troponin is negative: STOPPED MEDICATIONS: Lantus. CONTINUED MEDICATIONS: Zocor 10. ALTERED MEDICATIONS 1. Metoprolol XL now 50 mg twice daily. 2. Nifedipine 60 mg XL now twice daily. NEW MEDICATIONS: 1. Synthroid 25 mcg daily. 2. Culturelle 1 capsule twice daily. 3. Isordil dinitrate 20 mg 3 times daily. 4. Hydralazine 75 mg 3 times daily. 5. Lasix 40 daily. 6. Pepcid 20 daily. 7. Colace 100 twice daily. 8. PhosLo 667 with meals. 9. [place] 5 one every 4 to 6 hours as needed for pain. Dictated By: FARHAN ELLINGTON MD AC/NTS Conf#: [id number] DID#: [id number] CC: GILSON ALMEIDA MD; CHARLIE DONOVAN MD; ANKIT DIAZ MD;*End*
--- NOTE | 2016-07-07 12:54 | CONS ---
Date/Time of Note Date/Time of Note DATE: 07/07/16 TIME: 12:48 Assessment/Plan Assessment/Plan Chief Complaint/Hosp Course IMPRESSION: 1. Diastolic, acute on chronic-EF 55% by echo this admit 2. Hypertension consistent with hypertension urgency/emergency currently downtrending on oral antihypertensives. 3. Shortness of breath likely secondary to #1. 4. Abnormal electrocardiogram, assess for acute coronary syndrome.-negative troponin x 3 5. Dizziness, rule out cardiac arrhythmia. 6. Renal failure. 7. Hyperkalemia-Now improved 8. Anemia-receiving transfusion 9. Acidosis. Recc: -serial ecg -Continue procardia XL/toprol and increase Hydralazine to improve BP control -HD for volume removal Problems: Consultation Date/Type/Reason Admit Date/Time Jul 02, 2016 at 06:34 Initial Consult Date 07/02/2016 Type of Consultation: Cardiology Reason for Consultation CHF Referring Provider: JULIO DONOVAN MD Exam/Review of Systems Vital Signs Vitals Vital Signs Date Time Temp Pulse Resp B/P Pulse Ox O2 Delivery O2 Flow Rate FiO2 07/07/16 07:26 98.6 88 18 176/79 93 07/06/16 16:41 Room Air 2.0 Intake and Output 07/06/16 07/06/16 07/07/16 15:00 23:00 07:00 Intake Total 210 ml 200 ml Output Total 405 ml Balance -195 ml 200 ml Exam Review of Systems: CONSTITUTIONAL: No fevers, chills. PULMONARY: No sob CARDIOVASCULAR: No chest pain/palpitations GASTROINTESTINAL: No nausea/vomiting. GENITOURINARY: No hematuria/dysuria. MUSCULOSKELETAL: No myagias/arthalgias. PSYCHIATRIC: The patient denies depression. NEUROLOGIC: No weakness Constitutional: alert Psych: no complaints Head: normocephalic ENMT: mucosa pink and moist Neck: jvd, supple Respiratory: diminished breath sounds Cardiovascular: regular rate and rhythm Gastrointestinal: soft Musculoskeletal: muscle tone (normal) Extremities: edema (none) Neurological: other (No focal deficits) Results Result Diagram: 07/06/16 0507 07/06/16 0507 Results 24 hrs Laboratory Tests Test 07/06/16 16:10 07/06/16 17:23 07/06/16 21:57 07/07/16 10:49 Bedside Glucose 101 98 277 H 135 Medications Medications Current Medications Atorvastatin Calcium (Lipitor) 10 mg QHS PO Last administered on 07/06/16 22: 00; Admin Dose 10 MG; Start 07/02/16 at 21:00 Docusate Sodium (Colace) 100 mg BID PO Last administered on 07/07/16 10:43; Admin Dose 100 MG; Start 07/02/16 at 09:00 Famotidine (Pepcid) 20 mg DAILY PO Last administered on 07/07/16 10:43; Admin Dose 20 MG; Start 07/02/16 at 09:00 Ondansetron HCl (Zofran Inj) 4 mg Q6H PRN IV NAUSEA AND/OR VOMITING; Start 07/02 at 08:30 Miscellaneous Information 1 ea NOTE XX ; Start 07/02/16 at 09:30 Glucose (Glutose) 15 gm Q15M PRN PO DECREASED GLUCOSE; Start 07/02/16 at 09:30 Glucose (Glutose) 22.5 gm Q15M PRN PO DECREASED GLUCOSE; Start 07/02/16 at 09:30 Dextrose (D50w Syringe) 25 ml Q15M PRN IV DECREASED GLUCOSE; Start 07/02/16 at 09:30 Dextrose (D50w Syringe) 50 ml Q15M PRN IV DECREASED GLUCOSE; Start 07/02/16 at 09:30 Glucagon (Glucagen) 1 mg Q15M PRN IM DECREASED GLUCOSE; Start 07/02/16 at 09:30 Glucose (Glutose) 15 gm Q15M PRN BUCCAL DECREASED GLUCOSE Last administered on 07/03/16 03:11; Admin Dose 15 GM; Start 07/02/16 at 09:30 Hydralazine HCl (Apresoline) 10 mg Q4H PRN IV SBP>170 Last administered on 07/05 16:14; Admin Dose 10 MG; Start 07/02/16 at 16:00 Acetaminophen (Tylenol Tab) 650 mg Q4H PRN PO PAIN AND OR ELEVATED TEMP; Start 07/02/16 at 21:00 Acetaminophen/ Hydrocodone Bitart ([place] (5/325)) 1 tab Q4H PRN PO PAIN LEVEL 1 -5; Start 07/02/16 at 21:00 Levothyroxine Sodium (Synthroid) 25 mcg DAILY@06 PO Last administered on 06:24; Admin Dose 25 MCG; Start 07/04/16 at 06:00 Lactobacillus Acidophilus/ Rhamnosus (Culturelle) 1 cap BID PO Last administered on 07/07/16 10:43; Admin Dose 1 CAP; Start 07/03/16 at 21:00 Bisacodyl (Dulcolax) 10 mg DAILY PRN PO CONSTIPATION; Start 07/03/16 at 13:00 Metoprolol Succinate (Toprol Xl) 50 mg BID PO Last administered on 07/07/16 10 :42; Admin Dose 50 MG; Start 07/03/16 at 21:00 Nifedipine (Procardia Xl) 60 mg BID PO Last administered on 07/07/16 10:42; Admin Dose 60 MG; Start 07/03/16 at 21:00 Isosorbide Dinitrate (Isordil) 20 mg TID PO Last administered on 07/07/16 10: 43; Admin Dose 20 MG; Start 07/04/16 at 13:00 Furosemide (Lasix) 40 mg DAILY PO Last administered on 07/07/16 10:43; Admin Dose 40 MG; Start 07/06/16 at 09:00 Hydralazine HCl (Apresoline) 75 mg TID PO Last administered on 07/07/16 10:43 ; Admin Dose 75 MG; Start 07/06/16 at 13:00 GILSON ARAYA Jul 07, 2016 12:53
--- NOTE | 2016-07-07 13:45 | RADRPT ---
PROCEDURE: XR Chest. CLINICAL INDICATION: Shortness of breath. TECHNIQUE: Single frontal view. COMPARISON: 07/02/2016. FINDINGS: There is a new tunneled right internal jugular vein dialysis catheter with the tip in the right atri um. The heart is enlarged. There is calcification in the aorta consistent with atherosclerosis. Mild pulmonary edema is improved. There is no pleural effusion. There is no pneumothorax. IMPRESSION: 1. Dialysis catheter in satisfactory position. 2. Cardiomegaly and atherosclerosis. 3. Improved pulmonary edema. 4. No pleural effusion. RPTAT: QQ .Brennon Jose MD, MD Date Time Electronically viewed and signed by .Brennon Jose MD, MD on 07/07/2016 13:45 .R/
--- NOTE | 2016-07-07 13:46 | RADRPT ---
PROCEDURE: Ultrasound guidance for placement of needle in right internal jugular vein. CLINICAL INDICATION: Venous access. TECHNIQUE: Prior to the procedure, informed consent was obtained. Risks including bleeding, infection, and pneu mothorax were explained to the patient. The patient understood and was willing to proceed. A procedu ral pause was performed. The patient's name, date of , and procedure to be performed were verif ied. The central line was inserted with all elements of maximal sterile barrier technique. All of th e following were used: head covering, facial mask, sterile gown, sterile gloves, a large sterile she et, hand hygiene, and 2% chlorhexidine for cutaneous antisepsis. The right neck and anterior/super ior chest wall was prepped and draped in usual sterile fashion. Limited sonography of the right neck was then performed. Noted is a patent right internal jugular ve in. Ultrasound images were recorded and stored in the patient's medical record. Following the local injection of Xylocaine, the right internal jugular vein was punctured under sono graphic guidance with a 20-gauge needle through which a 0.018 inch floppy tip guidewire was advanced into the superior vena cava. The patient tolerated the procedure well. The remainder of the proce dure was performed and dictated under separate cover. COMPARISON: None. FINDINGS: The ultrasound images demonstrate a patent right internal jugular vein. The subsequent images demon strate the needle entering the right internal jugular vein. IMPRESSION: 1. Ultrasound guidance for a needle placement in right internal jugular vein. RPTAT: QQ .Brennon Jose MD, Date Time Electronically viewed and signed by .Brennon Jose MD, on 07/07/2016 13:46 .R/
--- NOTE | 2016-07-07 13:47 | RADRPT ---
PROCEDURE: PLACEMENT OF RIGHT INTERNAL JUGULAR VENOUS TUNNELED DIALYSIS CATHETER. CLINICAL INDICATION: Renal failure. TECHNIQUE: Prior to the procedure, informed consent was obtained. Risks including bleeding, infection, and pneu mothorax were explained to the patient and/or the patient's family. The patient and/or the patient's family understood and was willing to proceed. A procedural pause was performed. The patient's name, date of , and procedure to be performed were verified. The central line was inserted with all elements of maximal sterile barrier technique. All of the following were used: head covering, facial mask, sterile gown, sterile gloves, a large sterile sheet, hand hygiene, and 2% chlorhexidine for cutaneous antisepsis. The right neck and anterior/superior chest wall was prepped and draped in usu al sterile fashion. Limited sonography of the right neck was then performed. Noted is a patent right internal jugular ve in. Ultrasound images were recorded and stored in the patient's medical record. Following the local injection of Xylocaine, the right internal jugular vein was punctured under sono graphic guidance with a 20-gauge needle through which a 0.018 inch floppy tip guidewire was advanced into the superior vena cava. The tract was dilated to 5 Frisian and the wire was then replaced with a 0.035 in Amplatz guidewire. A tunnel was then created from the anterior lateral aspect of the sup erior right chest wall to the puncture site in the neck and the catheter was pulled through the trac t. Serial dilatation was then performed and a 16 Frisian peel away sheath was introduced. The 14.5 Frisian 23cm tip to cuff Angiodynamics BioFlo DuraMax dialysis catheter was advanced through the 16 F rench peel-away sheath. The tip of the catheter was confirmed in position within the right atrium. T he peel-away sheath was removed. The 2 ports were each flushed with 2.3 ml of 1:1000 heparin. The c atheter was secured to the skin with 2-0 silk. The wound in the neck was closed with 4-0 Vicryl suture using subcuticular running technique. The site was dressed. The patient tolerated the proce dure well. COMPARISON: None. FINDINGS: Final radiographic images demonstrate the tip of the catheter in the upper right atrium. A total of 0.1 minutes of fluoroscopy time was used. The ultrasound images demonstrate the needle entering th e jugular vein. Ultrasound images were recorded and stored in the patient's medical record. IMPRESSION: 1. Percutaneous insertion of right internal jugular dialysis tunneled dialysis catheter under fluoro scopic and sonographic guidance. RPTAT: QQ .Brennon Jose MD, MD Date Time Electronically viewed and signed by .Brennon Jose MD, MD on 07/07/2016 13:46 .R/
== END 2016-07-07 18:55 | disposition home or self-care (01) | DRG 264 ==
LOC: E/R 02:08 → MS4 06:34 → UNDOADMIN 09:15 → MS4 09:15 → MS2 07-05 11:28
PROVIDERS: ADMIT Family Medicine; ATTEND Family Medicine
PROC: 06HY33Z Insertion of Infusion Device into Lower Vein, Percutaneous Approach (ICD-10-PCS; 2016-07-02)
PROC: 5A1D60Z (ICD-10-PCS; 2016-07-02)
PROC: 03180ZD Bypass Left Brachial Artery to Upper Arm Vein, Open Approach (ICD-10-PCS; principal; 2016-07-06 11:30)
PROC: 02HV33Z Insertion of Infusion Device into Superior Vena Cava, Percutaneous Approach (ICD-10-PCS; 2016-07-07)
DX: I13.2 Hypertensive heart and chronic kidney disease with heart failure and with stage 5 chronic kidney disease, or end stage renal disease (principal); N17.9 Acute kidney failure, unspecified; I82.601 Acute embolism and thrombosis of unspecified veins of right upper extremity; E87.2 Acidosis; I50.33 Acute on chronic diastolic (congestive) heart failure; N18.6 End stage renal disease; E11.22 Type 2 diabetes mellitus with diabetic chronic kidney disease; E87.5 Hyperkalemia; I16.0 Hypertensive urgency; E78.5 Hyperlipidemia, unspecified; D64.9 Anemia, unspecified; E11.649 Type 2 diabetes mellitus with hypoglycemia without coma; E87.6 Hypokalemia; E03.9 Hypothyroidism, unspecified; E55.9 Vitamin D deficiency, unspecified; Z79.4 Long term (current) use of insulin
CPT/HCPCS: 36415; 36430; 36558; 36600; 71010; 76775; 76942; 80048; 80053; 80061; 81001; 81003; 82270; 82306; 82550; 82553; 82803; 82962; 83735; 83880; 84100; 84132; 84439; 84443; 84480; 84484; 85025; 85610; 85730; 86704; 86709; 86803; 86850; 86900; 86901; 86920; 87081; 87340; 90935; 93005; 93306; 93923; 93970; 96374; 96375; 96376; J1940; J0360; J0690; J1100; J1200; J1644; J1815; J2250; J2370; J2405; J2765; J2795; J2916; J3010; P9016

== ENCOUNTER 2016-12-12 06:03 | Day surgery (SDC) | payer OTHER ==
[~2016-12-12] VITALS: Ht 152.4 cm; Wt 52.0 kg
[~2016-12-12 06:03] MED LIST changes: +CALC667C NGT; +CHOL100062 PO; +DOCU-216 PO; +FAMO20TA18 PO; +HYDR-3498 PO; +HYDR-3671 PO; +ISOS20TA19 PO; +LACT1CAP57 PO; -LANT3I SC; +LAS20 PO; +LEVO25TA53 PO; +METO-319 PO; -METO25TA7 PO
[2016-12-12] MEDS ORDERED: ASPI-664 PO (07:20)
[2016-12-12] MEDS ORDERED: HYDR-3671 PO (07:20)
[2016-12-12] MEDS ORDERED: METO25TA4 PO (07:21)
[2016-12-12 07:22] VITALS: BP 145/66; PULSE 75; RESP 18
[2016-12-12] MEDS ORDERED: FURO80TA3 PO (07:22)
[2016-12-12] MEDS ORDERED: CALC667C PO (07:23)
[2016-12-12] MEDS ORDERED: BISA5TAB6 PO (07:23)
[2016-12-12] MEDS ORDERED: NIFE30TA60 PO (07:24)
[2016-12-12] MEDS ORDERED: SIMV20TA PO (07:24)
[2016-12-12 07:33] LABS: BASOPHILS % 0.4 % (0.0-2.0); EOSINOPHILS # 0.1 10^3/ul (0.0-0.5); EOSINOPHILS % 2.7 % (0.0-7.0); HEMATOCRIT 44.9 % (37.0-47.0); HEMOGLOBIN 14.9 g/dl (12.0-16.0); LYMPHOCYTES # 1.9 10^3/ul (0.8-2.9); LYMPHOCYTES % 36.8 % (15.0-51.0); MEAN CORPUSCULAR HEMOGLOBIN 34.2 pg (29.0-33.0); MEAN CORPUSCULAR HGB CONC 33.2 g/dl (32.0-37.0); MEAN PLATELET VOLUME 9.7 fl (7.4-10.4); MONOCYTE # 0.5 10^3/ul (0.3-0.9); MONOCYTES % 8.9 % (0.0-11.0); NEUTROPHIL # 2.6 10^3/ul (1.6-7.5); PLATELET COUNT 203 10^3/UL (140-415); RED BLOOD COUNT 4.36 10^6/ul (4.20-5.40); RED CELL DISTRIBUTION WIDTH 12.7 % (11.5-14.5); WHITE BLOOD COUNT 5.1 10^3/ul (4.8-10.8)
[2016-12-12 07:37] VITALS: Ht 152.4 cm; Wt 52.0 kg
[2016-12-12] MEDS ORDERED: BASAGLAR SC* (07:39)
--- NOTE | 2016-12-12 07:45 | SIPON ---
Date/Time of Note Date/Time of Note DATE: 12/12/16 TIME: 07:44 Operative Report Free Text/Dictation LUE FISTULOGRAM, COILING OF TRIBUTARIES CENTRAL VENOGRAM Surgeon EMILY Anesthesia Type: moderate sedation Estimated Blood Loss: minimal Transfusion Required: no Specimen: none Grafts/Implants INTERLOCK COILS Complications: no ANKIT DIAZ MD Dec 12, 2016 07:45
--- NOTE | 2016-12-12 07:45 | HPN ---
Date/Time of Note Date/Time of Note DATE: 12/12/16 TIME: 07:45 Interval H&P Admission Note Pt. seen H&P reviewed: No system changes ANKIT DIAZ MD Dec 12, 2016 07:45
--- NOTE | 2016-12-12 07:48 | CONS ---
Date/Time of Note Date/Time of Note DATE: 12/12/16 TIME: 07:47 Consultation Date/Type/Reason Admit Date/Time Hx of Present Illness VASCULAR SURGERY H&P NOTE Dear Doctors: Ms. Alcaraz is a 55-year-old female with a history of end-stage renal disease in which she underwent right chest wall catheter placement and creation of a new left brachiocephalic fistula. The patient is here today for her post- fistula surveillance and for evaluation of maturation. The patient underwent ultrasound which demonstrates the patient having adequate flow volume that is greater than 700; however, there seems to be increased velocity near that anastomosis with a suggestion of new intimal hyperplasia. There is also an area where the patient's mid cephalic vein is small in caliber and upon evaluation the patient has an enlarged tributary. At the moment, the patient denies shortness of breath, chest pain, nausea, vomiting, fever or chills. Denies left upper extremity claudication or rest pain-like symptoms. PHYSICAL EXAMINATION: GENERAL: Alert and oriented x3. LUNGS: Clear to auscultation bilaterally. HEART: S1, S2 present. ABDOMEN: Soft, nontender, nondistended. Bowel sounds positive. EXTREMITIES: Left upper extremity palpable brachial pulse. Motor and sensory intact. Cap refill of 2 to 3 seconds. Surgical scar is well healed. There is a bruit and thrill present. There is a tributary that is identified that also has bruit and thrill that loops below the antecubital region to the mid forearm. ASSESSMENT AND PLAN: 1. End-stage renal disease: It seems the patient has been doing well post her fistula placement. Upon our fistula surveillance there are areas of new intimal hyperplasia near the anastomosis and it seems that the patient has an area that has not fully dilated well in the mid cephalic vein. It seems that this is likely near the area where the tributary that loops to the forearm area , in which likely would need to be ligated or core embolized. Will plan to obtain a fistulogram to better delineate flow of her fistula to evaluate for neointimal hyperplasia in areas of non-maturing. Further, will plan to perform a core embolization if possible of this tributary that may be having retrograde flow to the forearm. 2. Optimize vascular status (BP meds, diet, nutrition, exercise, sugar control , antiplatelets). Discussed the findings, plan and management with the patient, through a certified cuff turner machine operator, and she understands. Thank you for allowing us to partake in the care of your patient. Please call with any questions. Social History Smoking Status: Never smoker Exam/Review of Systems Vital Signs Vitals Vital Signs Date Time Temp Pulse Resp B/P Pulse Ox O2 Delivery O2 Flow Rate FiO2 12/12/16 07:22 97.5 75 18 145/66 100 Room Air Results Result Diagram: 12/12/16 0707 Results 24 hrs Laboratory Tests Test 12/12/16 07:07 White Blood Count 5.1 Red Blood Count 4.36 # Hemoglobin 14.9 # Hematocrit 44.9 # Mean Corpuscular Volume 103.0 H Mean Corpuscular Hemoglobin 34.2 H Mean Corpuscular Hemoglobin Concent 33.2 Red Cell Distribution Width 12.7 Platelet Count 203 Mean Platelet Volume 9.7 Neutrophils % 51.0 Lymphocytes % 36.8 Monocytes % 8.9 Eosinophils % 2.7 Basophils % 0.4 Nucleated Red Blood Cells % 0.0 Neutrophils # 2.6 Lymphocytes # 1.9 Monocytes # 0.5 Eosinophils # 0.1 Basophils # 0.0 Nucleated Red Blood Cells # 0.0 ANKIT DIAZ MD Dec 12, 2016 07:48
--- NOTE | 2016-12-12 07:49 | PDOCDIS ---
Discharge Instructions DIAGNOSIS Discharge Diagnosis ESRD CONDITION Patient Condition: Good HOME CARE INSTRUCTIONS: Special Diet: RENAL ACTIVITY: Activity Restrictions: Avoid heavy lifting Do not Drive Do not operate Machinery Do not operate Power Tool Avoid Heavy Housework Keep Limb Elevated Bathing Restrictions: Sponge Bath FOLLOW UP/APPOINTMENTS Follow-up Plan FOLLOWUP IN TWO WEEKS ANKIT DIAZ MD Dec 12, 2016 07:49
[2016-12-12] MEDS ORDERED: HEPARIN 1000 UNITS/NS (A-LINE) 1,000 ML ONE (07:50)
[2016-12-12] MEDS ORDERED: IODIXANOL LOCM 100 ML BTL ONE ×2 (07:51→09:31)
[2016-12-12] MEDS ORDERED: LIDOCAINE 1% (MDV) 20 ML INJ ONE (07:51)
[2016-12-12] MEDS ORDERED: MIDAZOLAM 1 MG/ML 2 ML INJ ONE (07:52)
[2016-12-12] MEDS ORDERED: FENTAnyl 50 MCG/ML VIAL ONE (07:52)
[2016-12-12 07:55] LABS: INR 0.9; PROTIME 12.1 Sec (12.2-14.2); PT RATIO 0.9
[2016-12-12 07:56] LABS: PARTIAL THROMBOPLASTIN TIME 32.7 Sec (25.0-35.0)
[2016-12-12 08:23] LABS: CALCIUM 9.4 mg/dl (8.4-10.2)
[2016-12-12 08:25] LABS: POTASSIUM 5.1 mmol/L (3.5-5.1)
[2016-12-12 08:27] LABS: CREATININE 4.31 mg/dl (0.44-1.00)
[2016-12-12 09:25] VITALS: BP 134/65; PULSE 77; RESP 18
--- NOTE | 2016-12-12 09:47 | RADRPT ---
PROCEDURE: XR Chest. CLINICAL INDICATION: Preop left arm fistula TECHNIQUE: AP Portable chest. COMPARISON: 07/07/2016 FINDINGS: The right dialysis catheter is unchanged. The cardiomediastinal silhouette is normal.The aortic arch is calcified. No focal consolidation, ple ural effusion or pneumothorax is seen. The osseous structures are intact. IMPRESSION: No radiographic evidence of acute cardiopulmonary disease. Aortic atherosclerosis Right dialysis catheter in place Rajinder Green Physician Date Time Electronically viewed and signed by Rajinder Green Physician on 12/12/2016 08:11 CS/
--- NOTE | 2016-12-12 10:28 | OPR ---
DATE OF OPERATION: 12/12/2016 SURGEON: Doug Cueva MD PREOPERATIVE DIAGNOSIS: Left upper extremity non-maturing fistula. POSTOPERATIVE DIAGNOSIS: Left upper extremity non-maturing fistula. ANESTHESIA: Local with sedation. ESTIMATED BLOOD LOSS: Minimal. COMPLICATIONS: None. HEPARIN: None. CONTRAST: As recorded. ACCESS: Left upper extremity, a 6-Surinamese short sheath. CLOSURE: Manual compression, a 3-0 nylon suture. SEDATION: Under physician's supervision, moderate sedation was administered intravenously under continuous monitoring by the interventional team and attending physician. Pulse oximeter, heart rate and blood pressures were continuously monitored by the interventional surgeon. The physician spent time was 60 minutes of [id number] sedation time with the patient. INDICATIONS: This is a 56-year-old female who presented with history of end-stage renal disease, with a creation of a new left upper extremity brachiocephalic fistula. After ultrasound surveillance was identified, the patient's fistula was not maturing and had multiple tributaries that were diverting flow back into the forearm and into the brachial veins. It was then decided to perform a fistulogram with possible coil embolization of the tributaries. Therefore, the patient had been informed of alternatives, risks and benefits of the angiogram, balloon angioplasty, coiling. The risks included but not limited to, bleeding, thrombosis, embolization, myocardial infarction, , stroke, device malfunction, infection, nephrotoxicity, the patient has agreed to proceed. OPERATION PERFORMED: 1. Left upper ultrasound-guided access of the left brachiocephalic fistula. 2. Left upper extremity fistulogram. 3. Coil embolization of the first tributary involving interlocked detachable coil (IDC 6 x 20 cm, followed by a 4 x 10 cm). 4. Second branch tributary coil embolization with a 6 x 20 cm IDC. OPERATIVE FINDINGS AT SURGERY: 1. Patent fistula. 2. Patent cephalic vein. 3. Patent cephalic arch. 4. Patent axillary vein. 5. Patent internal jugular vein. 6. Patent left brachiocephalic vein. 7. Patent SVC. 8. Post intervention fistulogram identified increased flow along the brachiocephalic fistula with decreased flow of the newly thrombosed coiled vessels. OPERATIVE PROCEDURE: The patient was brought into the angio suite, and positioned supine position on the fluoroscopic table. Sedation was administered without any complications. Left upper extremity was then shaved, prepped, and draped in usual standard sterile fashion. A time-out and appropriate site was marked and confirmed. Local anesthesia was then infiltrated in the region of the left upper extremity fistula. The fistula was then cannulated with a micro access needle under ultrasound guidance and the guidewire was advanced into the brachial artery under fluoroscopic guidance. The needle was removed and a Glidewire was then placed. At this point, a 6-short Surinamese sheath was then placed in the fistula towards the arterial side. Fistulogram was then performed, identifying the first tributary. No significant stenosis was identified at the arterial site. Therefore, it was decided to go ahead and coil embolize the first tributary. At this point, using a Kumpe catheter and a Glidewire we were able to select the tributary in a second order selection and at this point, using a IDC interlock detachable coil we placed a 6 x 20 cm coil followed by a 4 x 10 cm IDC. The second coil was placed secondary to not completely thrombosing the tributary. At this point, another fistulogram was performed, identifying the patient still had some flow that was being diverted through another branch in the upper arm. It was decided to perform coil embolization of this tributary as well. Using a Kumpe catheter and Glidewire, this tributary was selected and a new interlock detachable coil was placed measuring 6 x 20 cm. This was done successfully and upon completion angiogram was identified as patient having decreased flow to both tributaries and increased size in the vein diameter. Central venogram was also performed to evaluate for any central stenosis and none was identified. The patient had patent central veins. At this point, patient tolerated the procedure well, was taken to the postanesthesia care unit in stable condition. All instrument, sponge, needle counts, catheters, wires were correct x2. Using a 3-0 nylon, the puncture site was closed and manual compression was held. Dictated By: Doug Cueva MD /[email or web address]/glenroy /Document#: [id number]
--- NOTE | 2016-12-13 16:10 | RADRPT ---
Vent Rate: 72 bpm RR Interval: 0 msec MI Interval: 164 msec QRS Duration: 102 msec QT Interval: 406 msec QTC Interval: 444 msec P-R-T [place]: 51 - -28 - 45 degrees Normal sinus rhythm Septal infarct , age undetermined Abnormal ECG Electronically Signed By: Blair Herbert [id number]
== END 2016-12-12 10:55 | disposition home or self-care (01) ==
LOC: SDS 06:03
PROVIDERS: ATTEND Student in an Organized Health Care Education/Training Program
DX: T82.898A Other specified complication of vascular prosthetic devices, implants and grafts, initial encounter (principal); Y84.8 Other medical procedures as the cause of abnormal reaction of the patient, or of later complication, without mention of misadventure at the time of the procedure; Y92.89 Other specified places as the place of occurrence of the external cause; I12.0 Hypertensive chronic kidney disease with stage 5 chronic kidney disease or end stage renal disease; N18.6 End stage renal disease
CPT/HCPCS: 36901; 71010; 80048; 82962; 85025; 85610; 85730; 93005; C1887; C1894; J1644; Q9967; Z7610; J2250; J3010

== ENCOUNTER 2017-01-19 12:03 | Day surgery (SDC) | payer OTHER ==
[~2017-01-19] VITALS: Ht 154.9 cm; Wt 52.8 kg
[~2017-01-19 12:03] MED LIST changes: +ASPI-664 PO; +BASAGLAR SC*; +BISA5TAB6 PO; -CALC667C NGT; +CALC667C PO; -FAMO20TA18 PO; +FURO80TA3 PO; -HYDR-3498 PO; -LACT1CAP57 PO; -LAS20 PO; -METO-319 PO; +METO25TA4 PO; +NIFE30TA60 PO; -NIFE60TA7 PO; -NOVO3I SC; -SIMV10TA PO; +SIMV20TA PO
--- NOTE | 2017-01-19 13:41 | RADRPT ---
PROCEDURE: XR Chest 1 View. CLINICAL INDICATION: Abnormal breath sounds, preop. TECHNIQUE: AP view of the chest was obtained. COMPARISON: December 12, 2016 FINDINGS: The heart size is within normal limits. Calcified atherosclerosis is noted in the aorta. Right-side d dialysis catheter has its tip in the expected location of the mid right atrium. No consolidations are identified. No pneumothorax is seen. Osseous structures are intact. IMPRESSION: Calcified atherosclerosis in the aorta. Clear lungs. RPTAT: AA .Kiko Travis MD, Date Time Electronically viewed and signed by .Kiko Travis MD, on 01/19/2017 13:40 .P/
[2017-01-19 14:20] VITALS: BP 122/71; PULSE 76; RESP 16
[2017-01-19 14:21] VITALS: Ht 154.9 cm; Wt 52.8 kg
[2017-01-19] MEDS ORDERED: IODIXANOL LOCM 100 ML BTL ONE (14:25)
[2017-01-19] MEDS ORDERED: LIDOCAINE 1% (MDV) 20 ML INJ ONE (14:25)
[2017-01-19] MEDS ORDERED: FENTAnyl 50 MCG/ML VIAL ONE (14:29)
[2017-01-19] MEDS ORDERED: MIDAZOLAM 1 MG/ML 2 ML INJ ONE (14:29)
--- NOTE | 2017-01-19 14:47 | HPN ---
Date/Time of Note Date/Time of Note DATE: 01/19/17 TIME: 14:47 Interval H&P Admission Note Pt. seen H&P reviewed: No system changes ANKIT DIAZ MD Jan 19, 2017 14:47
--- NOTE | 2017-01-19 14:48 | CONS ---
Date/Time of Note Date/Time of Note DATE: 01/19/17 TIME: 14:47 Consultation Date/Type/Reason Admit Date/Time Hx of Present Illness Date: 01/19/17 VASCULAR SURGERY H&P NOTE Dear Doctors: Ms. Alcaraz is a 56-year-old female with a history of end-stage renal disease in which she underwent right chest wall catheter placement and creation of a new left brachiocephalic fistula. The patient is here today for her post- fistula surveillance and for evaluation of maturation. The patient underwent ultrasound which demonstrates the patient having adequate flow volume that is greater than 700; however, there seems to be increased velocity near that anastomosis with a suggestion of new intimal hyperplasia. Subsequently she underwent fistulogram and coil embolization of a tributary as the patient's mid cephalic vein is small in caliber and upon evaluation the patient had an enlarged tributary. She has tolerated two needle cannulations thus far. At the moment, the patient denies shortness of breath, chest pain, nausea, vomiting, fever or chills. Denies left upper extremity claudication or rest pain-like symptoms. PHYSICAL EXAMINATION: GENERAL: Alert and oriented x3. LUNGS: Clear to auscultation bilaterally. HEART: S1, S2 present. ABDOMEN: Soft, nontender, nondistended. Bowel sounds positive. EXTREMITIES: Left upper extremity palpable brachial pulse. Motor and sensory intact. Cap refill of 2 to 3 seconds. Surgical scar is well healed. There is a bruit and thrill present. and ecchymosis ASSESSMENT AND PLAN: 1. End-stage renal disease: It seems the patient has been doing well post her fistula placement. Upon our fistula surveillance there are areas of new intimal hyperplasia near the anastomosis. will have patient has tolerated 2 needle cannulation and schedule for perm catheter removal and central venogram 2. Optimize vascular status (BP meds, diet, nutrition, exercise, sugar control , antiplatelets). Discussed the findings, plan and management with the patient, through a certified orthopaedic physician assistant, and she understands. Thank you for allowing us to partake in the care of your patient. Please call with any questions. Social History Smoking Status: Never smoker Exam/Review of Systems Vital Signs Vitals Vital Signs Date Time Temp Pulse Resp B/P Pulse Ox O2 Delivery O2 Flow Rate FiO2 01/19/17 14:20 98.7 76 16 122/71 99 Room Air Results Result Diagram: 01/19/17 1250 01/19/17 1250 Results 24 hrs Laboratory Tests Test 01/19/17 12:50 01/19/17 12:54 White Blood Count 5.1 Red Blood Count 4.01 L Hemoglobin 13.0 Hematocrit 39.1 Mean Corpuscular Volume 97.5 Mean Corpuscular Hemoglobin 32.4 Mean Corpuscular Hemoglobin Concent 33.2 Red Cell Distribution Width 11.7 Platelet Count 143 # Mean Platelet Volume 10.8 H Neutrophils % 45.7 Lymphocytes % 38.4 Monocytes % 10.0 Eosinophils % 5.1 Basophils % 0.6 Nucleated Red Blood Cells % 0.0 Neutrophils # 2.3 Lymphocytes # 2.0 Monocytes # 0.5 Eosinophils # 0.3 Basophils # 0.0 Nucleated Red Blood Cells # 0.0 Prothrombin Time 12.4 Prothrombin Time Ratio 1.0 INR International Normalized Ratio 0.92 Activated Partial Thromboplast Time 34.5 Sodium Level 143 Potassium Level 4.9 Chloride Level 95 L Carbon Dioxide Level 36 H Anion Gap 17 H Blood Urea Nitrogen 63 H Creatinine 5.91 H Glucose Level 89 Calcium Level 9.6 Bedside Glucose 88 ANKIT DIAZ MD Jan 19, 2017 14:48
--- NOTE | 2017-01-19 14:49 | PDOCDIS ---
Discharge Instructions DIAGNOSIS Discharge Diagnosis ESRD CONDITION Patient Condition: Good HOME CARE INSTRUCTIONS: Special Diet: RESUME PREOP DIET ACTIVITY: Activity Restrictions: Slowly Increase Activity Avoid heavy lifting Do not Drive Do not operate Machinery Do not operate Power Tool Bathing Restrictions: Shower FOLLOW UP/APPOINTMENTS Follow-up Plan FOLLOWUP W APC IN 2 WEEKS ANKIT DIAZ MD Jan 19, 2017 14:49
--- NOTE | 2017-01-19 15:04 | SIPON ---
Date/Time of Note Date/Time of Note DATE: 01/19/17 TIME: 15:03 Operative Report Preoperative Diagnosis ESRD Postoperative Diagnosis SAME Operation/Procedure Performed REMOVAL OF RIGHT CHEST WALL PERMANENT CATHETER & VENOGRAM Surgeon see signature line administrative assistant front desk NONE Anesthesia: moderate sedation Estimated blood loss: minimal Transfusion Required none Specimen NONE Grafts/Implants none Complications none ANKIT DIAZ MD Jan 19, 2017 15:04
--- NOTE | 2017-01-19 15:04 | SIPON ---
Date/Time of Note Date/Time of Note DATE: 01/19/17 TIME: 15:03 Operative Report Preoperative Diagnosis ESRD Postoperative Diagnosis SAME Operation/Procedure Performed REMOVAL OF RIGHT CHEST WALL PERMANENT CATHETER & VENOGRAM Surgeon see signature line printer's assistant NONE Anesthesia: moderate sedation Estimated blood loss: minimal Transfusion Required none Specimen NONE Grafts/Implants none Complications none ANKIT DIAZ MD Jan 19, 2017 15:04
--- NOTE | 2017-01-19 15:04 | SIPON ---
Date/Time of Note Date/Time of Note DATE: 01/19/17 TIME: 15:03 Operative Report Preoperative Diagnosis ESRD Postoperative Diagnosis SAME Operation/Procedure Performed REMOVAL OF RIGHT CHEST WALL PERMANENT CATHETER & VENOGRAM Surgeon see signature line orthopedic assistant NONE Anesthesia: moderate sedation Estimated blood loss: minimal Transfusion Required none Specimen NONE Grafts/Implants none Complications none ANKIT DIAZ MD Jan 19, 2017 15:04
[2017-01-19 15:15] VITALS: BP 136/65; PULSE 79; RESP 16
--- NOTE | 2017-01-19 15:38 | OPR ---
DATE OF OPERATION: 01/19/2017 SURGEON: Doug Cueva MD. PREOPERATIVE DIAGNOSIS: End-stage renal disease. POSTOPERATIVE DIAGNOSIS: End-stage renal disease. ANESTHESIA: Local with moderate sedation. ESTIMATED BLOOD LOSS: Minimal. COMPLICATIONS: None. ACCESS: Right chest wall catheter. INDICATIONS: This is a 56-year-old female with history of end-stage renal disease who has a right c hest wall catheter with a recent left upper extremity AV fistula creation that has matured and has b een used for access. The patient has been coming along well with 2-needle cannulation and is now ti me to remove the catheter. The patient and family have been informed of the alternatives, risks and benefits, risks including but not limited to bleeding, thrombosis, embolization, myocardial infarct ion, , device malfunction, infection, pneumothorax, nephrotoxicity and patient has agreed to pr oceed. PROCEDURE: Moderate sedation, fluoroscopic guidance of a central catheter removal central venogram of the SVC and moderate sedation and removal of a central venous non-tunneled catheter. DESCRIPTION OF PROCEDURE: The patient was brought into the angio suite and positioned in supine pos ition. The patient's neck and chest wall were shaved, prepped and draped in the usual standard ster ile fashion. Timeout was completed verifying the correct patient, procedure, site, positioning and special equipment needed prior to beginning of the procedure. Local anesthesia was then infiltrated in the region of the right chest wall. The patient had turned to the contralateral side. The cath eter was then flushed with heparinized saline solution to correct the function of each port. At thi s point, using an Amplatz wire access was obtained via the central tunneled catheter placing the wir e in the inferior vena cava with fluoroscopy. At this point, central venous catheter was pulled chidi k to the junction of the internal jugular vein and subclavian vein in the right brachiocephalic vein . At this point, using a Visipaque central venogram was performed to evaluate for any central steno sis prior to removing of our Perm-Catheter. Upon fluoroscopy visualization it was identified patien t having a patent right brachiocephalic vein and SVC with no flow limiting stenosis to the right atr ium. At this point, the central catheter was removed without any complications. The stiff wire was also removed. Manual compression was held on the right IJ landmark and using a 3-0 nylon suture, t he puncture site was closed. Sterile dressing was applied. The patient tolerated the procedure wel l and was taken to postop recovery unit in stable condition. Dictated By: DOUG MARTÍNEZ/ELÍAS Conf#: [id number] DID#: [id number]
--- NOTE | 2017-01-20 12:57 | RADRPT ---
Vent Rate: 71 bpm RR Interval: 0 msec [place] Interval: 164 msec QRS Duration: 98 msec QT Interval: 412 msec QTC Interval: 447 msec P-R-T [place]: 52 - -17 - 51 degrees Normal sinus rhythm Normal ECG Electronically Signed By: Nile Johnson [id number]
--- NOTE | 2017-01-20 12:57 | RADRPT ---
Vent Rate: 71 bpm RR Interval: 0 msec [place] Interval: 164 msec QRS Duration: 98 msec QT Interval: 412 msec QTC Interval: 447 msec P-R-T [place]: 52 - -17 - 51 degrees Normal sinus rhythm Normal ECG Electronically Signed By: Nile Johnson [id number]
--- NOTE | 2017-01-20 12:57 | RADRPT ---
Vent Rate: 71 bpm RR Interval: 0 msec MI Interval: 164 msec QRS Duration: 98 msec QT Interval: 412 msec QTC Interval: 447 msec P-R-T [place]: 52 - -17 - 51 degrees Normal sinus rhythm Normal ECG Electronically Signed By: Nile Johnson [id number]
== END 2017-01-19 15:50 | disposition home or self-care (01) ==
LOC: CCL 12:03
PROVIDERS: ATTEND Student in an Organized Health Care Education/Training Program
DX: N18.6 End stage renal disease (principal)
CPT/HCPCS: 36590; 71010; 80048; 82962; 85025; 85610; 85730; 93005; J1644; J2250; J3010; Q9967; Z7610